=== PATIENT | female | born 1970 | race African-American/Black ===

== ENCOUNTER → 2016-06-03 | Outpatient (CLI) | payer OTHER ==
--- NOTE | 2016-06-03 07:48 | US ---
EXAMINATION TYPE: US abdomen complete DATE OF EXAM: 06/03/2016 7:17 AM COMPARISON: NONE CLINICAL HISTORY: 46-year-old female RUQ Pain R10.11. Patient states abdominal bloating. TECHNIQUE: Multiple sonographic images of the abdomen are obtained. FINDINGS: EXAM MEASUREMENTS: Liver Length: 15.7 cm Gallbladder Wall: 0.2 cm CBD: 0.4 cm Spleen: 9.4 cm Right Kidney: 11.8 x 4.0 x 5.1 cm Left Kidney: 11.2 x 5.2 x 4.5 cm Pancreas: wnl Liver: Normal homogeneous echotexture without focal lesion. Gallbladder: No abnormal gallbladder distention, wall thickening, pericholecystic fluid, or shadowin g calculi. Evidence for sonographic Walden's sign: No CBD: wnl Spleen: wnl Right Kidney: No hydronephrosis Left Kidney: No hydronephrosis Upper IVC: wnl Abd Aorta: wnl IMPRESSION: Unremarkable sonographic examination of the abdomen.
== END | disposition home or self-care (01) ==
LOC: RADUSWWP 07:00
PROVIDERS: ATTEND Internal Medicine
DX: R10.11 Right upper quadrant pain (principal)
CPT/HCPCS: 76700

== ENCOUNTER 2016-10-16 22:00 | Emergency (ER) | payer OTHER ==
[2016-10-16] MEDS ORDERED: HYDROmorphone 1 MG/ML 1 ML SYRINGE IVP STA (22:26)
[2016-10-16] MEDS ORDERED: ACETAMINOPHEN TAB 500 MG TAB PO STA (22:26)
[2016-10-16] MEDS ORDERED: SODIUM CHLORIDE 0.9% 1,000 ML IV STA (22:26)
[2016-10-16] MEDS ORDERED: ONDANSETRON 4 MG/2 ML VIAL IVP STA (22:26)
--- NOTE | 2016-10-16 22:36 | ED ---
General Adult HPI - General Chief complaint: Abdominal Pain Stated complaint: vomiting and rt side pain Time Seen by Provider: 10/16/16 22:12 Source: patient, RN notes reviewed Mode of arrival: ambulatory Limitations: no limitations - History of Present Illness Initial comments: 46-year-old female presents to the emergency department with a chief complaint of right-sided flank pain and right-sided abdominal pain. Patient states started 2 weeks noticed slowly gotten worse. She said states she's developed fever last few days. She's had some nausea vomiting. She went to her doctor today due to the fever he put on antibiotics but she did not take anything yet. Patient was concerned due to the continued fever and pain so she thought that she should be evaluated. Patient denies any surgeries on the abdomen. Patient states that she is not currently having any other symptoms at this time. Patient denies any recent chills, shortness of breath, chest pain, back pain, numbness or tingling, dysuria or hematuria, constipation or diarrhea, headaches or visual changes, or any other current symptoms. - Related Data Home Medications Medication Instructions Recorded Confirmed diphenhydrAMINE [Benadryl] 50 mg PO HS PRN 10/16/16 10/16/16 Allergies Allergy/AdvReac Type Severity Reaction Status Date / Time No Known Allergies Allergy Verified 10/16/16 22:25 Review of Systems ROS Statement: Those systems with pertinent positive or pertinent negative responses have been documented in the HPI. ROS Other: All systems not noted in ROS Statement are negative. Past Medical History Additional Past Medical History / Comment(s): kidney stones History of Any Multi-Drug Resistant Organisms: None Reported Past Surgical History: Uterine Ablation Past Psychological History: No Psychological Hx Reported Smoking Status: Never smoker Past Alcohol Use History: None Reported Past Drug Use History: None Reported General Exam - General Exam Comments Initial Comments: General: The patient is awake and alert, in no distress, and does not appear acutely ill. Eye: Pupils are equal, round and reactive to light, extra-ocular movements are intact; there is normal conjunctiva bilaterally. No signs of icterus. Ears, nose, mouth and throat: There are moist mucous membranes. Neck: The neck is supple, there is no tenderness. Cardiovascular: There is a regular rate and rhythm. No murmur, rub or gallop is appreciated. Respiratory: Lungs are clear to auscultation, respirations are non-labored, breath sounds are equal. No wheezes, stridor, rales, or rhonchi. Gastrointestinal: Soft, non-distended, right-sided tenderness of the abdomen without masses or organomegaly noted. There is no rebound or guarding present. No CVA tenderness. Bowel sounds are unremarkable. Back: There is no tenderness to palpation in the midline. There is no obvious deformity. No rashes noted. Musculoskeletal: Normal ROM, no tenderness, There is no pedal edema. There is no calf tenderness or swelling. Sensation intact. Pulses equal bilaterally 2+. Neurological: CN II-XII intact, There are no obvious motor or sensory deficits. Coordination appears grossly intact. Speech is normal. Skin: Skin is warm and dry and no rashes or lesions are noted. Psychiatric: Cooperative, appropriate mood & affect, normal judgment. Limitations: no limitations Course Vital Signs 10/16/16 22:06 Temperature 100.3 F H Pulse Rate 80 Respiratory 20 Rate Blood Pressure 138/85 O2 Sat by Pulse 100 Oximetry Medical Decision Making - Medical Decision Making 46-year-old female presents emergency Department chief complaint of right-sided abdominal pain. This time patient's results have been reviewed. This and we discussed possible etiologies for the patient's discomfort. We discussed return parameters follow-up and all the patient's questions. Patient stated she understood and she is reviewed and negative.. All her questions have any acute. At this time patient will be discharged home. - Lab Data Result diagrams: 10/16/16 22:45 10/16/16 22:45 Lab Results 10/16/16 10/16/16 10/16/16 Range/Units 22:45 22:45 22:45 WBC 5.6 (3.8-10.6) k/uL RBC 3.95 (3.80-5.40) m/uL Hgb 10.2 L (11.4-16.0) gm/dL Hct 32.3 L (34.0-46.0) % MCV 81.8 (80.0-100.0) fL MCH 25.7 (25.0-35.0) pg MCHC 31.4 (31.0-37.0) g/dL RDW 15.5 (11.5-15.5) % Plt Count 286 (150-450) k/uL Neutrophils % 52 % Lymphocytes % 38 % Monocytes % 5 % Eosinophils % 2 % Basophils % 0 % Neutrophils # 2.9 (1.3-7.7) k/uL Lymphocytes # 2.1 (1.0-4.8) k/uL Monocytes # 0.3 (0-1.0) k/uL Eosinophils # 0.1 (0-0.7) k/uL Basophils # 0.0 (0-0.2) k/uL Hypochromasia Marked Sodium 139 (137-145) mmol/L Potassium 3.9 (3.5-5.1) mmol/L Chloride 104 (98-107) mmol/L Carbon Dioxide 24 (22-30) mmol/L Anion Gap 11 mmol/L BUN 13 (7-17) mg/dL Creatinine 0.80 (0.52-1.04) mg/dL Est GFR (MDRD) Af Amer >60 (>60 ml/min/1.73 sqM) Est GFR (MDRD) Non-Af >60 (>60 ml/min/1.73 sqM) Glucose 132 H (74-99) mg/dL Plasma Lactic Acid Alex 1.1 (0.7-2.0) mmol/L Calcium 9.3 (8.4-10.2) mg/dL Total Bilirubin 0.2 (0.2-1.3) mg/dL AST 13 L (14-36) U/L ALT 28 (9-52) U/L Alkaline Phosphatase 62 (38-126) U/L Total Protein 7.2 (6.3-8.2) g/dL Albumin 4.0 (3.5-5.0) g/dL Amylase 73 (30-110) U/L Lipase 100 (23-300) U/L Urine Color Urine Appearance (Clear) Urine pH (5.0-8.0) Ur Specific [place] (1.001-1.035) Urine Protein (Negative) Urine Glucose (UA) (Negative) Urine Ketones (Negative) Urine Blood (Negative) Urine Nitrite (Negative) Urine Bilirubin (Negative) Urine Urobilinogen (<2.0) mg/dL Ur Leukocyte Esterase (Negative) 10/16/16 Range/Units 22:45 WBC (3.8-10.6) k/uL RBC (3.80-5.40) m/uL Hgb (11.4-16.0) gm/dL Hct (34.0-46.0) % MCV (80.0-100.0) fL MCH (25.0-35.0) pg MCHC (31.0-37.0) g/dL RDW (11.5-15.5) % Plt Count (150-450) k/uL Neutrophils % % Lymphocytes % % Monocytes % % Eosinophils % % Basophils % % Neutrophils # (1.3-7.7) k/uL Lymphocytes # (1.0-4.8) k/uL Monocytes # (0-1.0) k/uL Eosinophils # (0-0.7) k/uL Basophils # (0-0.2) k/uL Hypochromasia Sodium (137-145) mmol/L Potassium (3.5-5.1) mmol/L Chloride (98-107) mmol/L Carbon Dioxide (22-30) mmol/L Anion Gap mmol/L BUN (7-17) mg/dL Creatinine (0.52-1.04) mg/dL Est GFR (MDRD) Af Amer (>60 ml/min/1.73 sqM) Est GFR (MDRD) Non-Af (>60 ml/min/1.73 sqM) Glucose (74-99) mg/dL Plasma Lactic Acid Alex (0.7-2.0) mmol/L Calcium (8.4-10.2) mg/dL Total Bilirubin (0.2-1.3) mg/dL AST (14-36) U/L ALT (9-52) U/L Alkaline Phosphatase (38-126) U/L Total Protein (6.3-8.2) g/dL Albumin (3.5-5.0) g/dL Amylase (30-110) U/L Lipase (23-300) U/L Urine Color Yellow Urine Appearance Clear (Clear) Urine pH 5.0 (5.0-8.0) Ur Specific [place] 1.019 (1.001-1.035) Urine Protein Negative (Negative) Urine Glucose (UA) Negative (Negative) Urine Ketones Negative (Negative) Urine Blood Negative (Negative) Urine Nitrite Negative (Negative) Urine Bilirubin Negative (Negative) Urine Urobilinogen <2.0 (<2.0) mg/dL Ur Leukocyte Esterase Negative (Negative) - Radiology Data Radiology results: report reviewed, image reviewed Disposition Clinical Impression: Right sided abdominal pain, Leiomyoma of uterus Disposition: HOME SELF-CARE Condition: Stable Instructions: Abdominal Pain (ED) Additional Instructions: Please use medication as discussed. Please follow up with family doctor if symptoms have not improved over the next two days. Please return to the emergency room if your symptoms increase or worsen or for any other concerns. Referrals: Shavon Cobos MD [Primary Care Provider] - 1-2 days Time of Disposition: 00:52
[2016-10-16] MEDS ORDERED: KETOROLAC 30 MG/ML 1 ML VIAL IVP STA (22:51)
[2016-10-16 22:59] LABS: Appearance,Urine Clear (Clear); Bilirubin,Urine Negative (Negative); Glucose,Urine (UA) Negative (Negative); Ketones,Urine Negative (Negative); Leukocyte Esterase,Urine Negative (Negative); Nitrite,Urine Negative (Negative); Protein,Urine Negative (Negative); Specific Gravity,Urine 1.019 (1.001-1.035); UA Billing (MACRO vs. MICRO) CHEM; Urobilinogen,Urine <2.0 mg/dL (<2.0)
[2016-10-16 23:03] LABS: Basophils % (A) 0 %; CH 25.2; CHCM 30.9; Eosinophils # (A) 0.1 k/uL (0-0.7); Eosinophils % (A) 2 %; HCT 32.3 % (34.0-46.0); HDW 3.35; HGB 10.2 gm/dL (11.4-16.0); Hypochromasia Marked; Luc # (Auto) 0.16; Luc % (Auto) 3; Lymphocytes # (A) 2.1 k/uL (1.0-4.8); Lymphocytes % (A) 38 %; MCH 25.7 pg (25.0-35.0); MCHC 31.4 g/dL (31.0-37.0); MCV 81.8 fL (80.0-100.0); Mean Platelet Volume 8.1; Monocytes # (A) 0.3 k/uL (0-1.0); Monocytes % (A) 5 %; Neutrophils # (A) 2.9 k/uL (1.3-7.7); Neutrophils % (A) 52 %; RBC 3.95 m/uL (3.80-5.40); RDW 15.5 % (11.5-15.5); WBC 5.6 k/uL (3.8-10.6); WBC (Perox) 5.52
[2016-10-16 23:08] LABS: ALT 28 U/L (9-52); AST 13 U/L (14-36); Alkaline Phosphatase 62 U/L (38-126); Amylase 73 U/L (30-110); Anion Gap 11 mmol/L; Blood Urea Nitrogen 13 mg/dL (7-17); Calcium 9.3 mg/dL (8.4-10.2); Carbon Dioxide 24 mmol/L (22-30); Chloride 104 mmol/L (98-107); Glucose 132 mg/dL (74-99); Non-African American GFR(MDRD) >60 (>60 ml/min/1.73 sqM); Potassium 3.9 mmol/L (3.5-5.1); Sodium 139 mmol/L (137-145); Total Bilirubin 0.2 mg/dL (0.2-1.3); Total Protein 7.2 g/dL (6.3-8.2)
--- NOTE | 2016-10-16 23:55 | CT ---
EXAM: CT Abdomen and Pelvis Without Intravenous Contrast CLINICAL HISTORY: Reason: Pain TECHNIQUE: Axial computed tomography images of the abdomen and pelvis without intravenous contrast. DLP is 949.90 mGy-cm. This CT exam was performed using one or more of the following dose reduction techniques: automated exposure control, adjustment of the mA and/or kV according to patient size, and/or use of iterative reconstruction technique. COMPARISON: No relevant prior studies available. FINDINGS: Lower thorax: No acute findings. ABDOMEN: Liver: Unremarkable. Gallbladder and bile ducts: Unremarkable. No calcified stones. No ductal dilation. Pancreas: Unremarkable. No ductal dilation. Spleen: Unremarkable. No splenomegaly. Adrenals: Unremarkable. No mass. Kidneys and ureters: Unremarkable. No obstructing stones. No hydronephrosis. Stomach and bowel: Unremarkable. No obstruction. No mucosal thickening. Appendix: No findings to suggest acute appendicitis. PELVIS: Bladder: Unremarkable. No stones. Reproductive: Enlarged heterogeneous anteverted uterus. ABDOMEN and PELVIS: Intraperitoneal space: Unremarkable. No free air. No significant fluid collection. Bones/joints: No acute fracture. No dislocation. Soft tissues: Unremarkable. Vasculature: Unremarkable. No abdominal aortic aneurysm. Lymph nodes: Unremarkable. No enlarged lymph nodes. IMPRESSION: Enlarged heterogeneous uterus may be due to multiple leiomyomas or adenomyosis. Correlate clinically.
--- NOTE | 2016-10-17 00:33 | XR ---
EXAM: XR Chest, 2 Views CLINICAL HISTORY: Reason: cough TECHNIQUE: Frontal and lateral views of the chest. COMPARISON: 10/22/15 FINDINGS: Lungs: Unremarkable. No consolidation. Pleural space: Unremarkable. No pneumothorax. Heart: Unremarkable. No cardiomegaly. Mediastinum: Unremarkable. Bones/joints: Unremarkable. IMPRESSION: Normal chest x-rays.
[2016-10-17 01:08] VITALS: BP 119/68; PULSE 69; RESP 18; TEMP 98.1
== END 2016-10-17 01:08 | disposition home or self-care (01) ==
LOC: EC 22:00
DX: D25.9 Leiomyoma of uterus, unspecified (principal); R10.9 Unspecified abdominal pain; R11.2 Nausea with vomiting, unspecified; R50.9 Fever, unspecified; Z87.442 Personal history of urinary calculi
CPT/HCPCS: 99284; 96374; 96375; 96361; 36415; 80053; 82150; 83605; 83690; 85025; 81003; 87040; 87086; 71020; 74176; J2405; J1885

== ENCOUNTER → 2016-10-28 | Outpatient (CLI) | payer OTHER ==
--- NOTE | 2016-10-28 15:28 | NM ---
EXAMINATION TYPE: NM hepatobiliary w EF DATE OF EXAM: 10/28/2016 COMPARISON: NONE HISTORY: Right upper quadrant pain TECHNIQUE: After the intravenous administration of 5.36 mCi Tc 99m Mebrofenin hepatobiliary scintigra phy is performed. Immediate images post injection. FINDINGS: There is satisfactory initial accumulation of tracer by the liver. The gallbladder is visualized wit hin 14 minutes. The small bowel activity is noted within 26 minutes. At one hour 8 ounces of oral e nsure plus is given to mimic CCK and gallbladder ejection fraction is calculated at 77%, in the mikie l range. Therefore there is no scintigraphic evidence of cystic or common bile duct obstruction to s uggest acute cholecystitis or gallbladder dyskinesia. IMPRESSION: 1. No evidence of acute or chronic cholecystitis. 2. Normal ejection fraction of 77% with no evidence of biliary dyskinesia.
== END ==
LOC: RADNMMAIN 13:02
PROVIDERS: ATTEND Internal Medicine
DX: R10.11 Right upper quadrant pain (principal)
CPT/HCPCS: 78226; A9537

== ENCOUNTER → 2017-01-05 | Outpatient (CLI) | payer OTHER ==
--- NOTE | 2017-01-05 10:40 | MM ---
Reason for exam: screening (asymptomatic). Baseline mammogram. Physical Findings: Nurse did not find any significant physical abnormalities on exam. MG Screening Mammo w CAD Bilateral CC and MLO view(s) were taken. The breast tissue is heterogeneously dense. This may lower the sensitivity of mammography. Multiregional calcifications on both sides. The overall distribution and bilaterality favors a benign etiology. Additional magnification views are recommended to further characterize. These results were verbally communicated with the patient and result sheet given to the patient on 01/05/17. ASSESSMENT: Incomplete: need additional imaging evaluation, BI-RAD 0 RECOMMENDATION: Special view mammogram of both breasts.
--- NOTE | 2017-01-05 10:48 | MM ---
Reason for exam: additional evaluation requested from abnormal screening. MG Work Up Mamm w CAD BILAT Bilateral ML and CC with magnification view(s) were taken. MLO with magnification view(s) were taken of the left breast. Multifocal and multicentric bilateral calcifications are demonstrated, many appear round in morphalogy suggesting a benign etiology and can be followed. Additional calcifications layer on lateral view compatible with benign milk of calcium. 6 month followup recommended. ASSESSMENT: Probably benign, BI-RAD 3 RECOMMENDATION: Follow-up diagnostic mammogram of both breasts in 6 months.
== END | disposition home or self-care (01) ==
LOC: RADMAMWWP 08:30
PROVIDERS: ATTEND Internal Medicine
DX: Z12.31 Encounter for screening mammogram for malignant neoplasm of breast (principal); R92.8 Other abnormal and inconclusive findings on diagnostic imaging of breast
CPT/HCPCS: G0202; G0204

== ENCOUNTER 2017-04-23 17:42 | Emergency (ER) | payer OTHER ==
[2017-04-23 18:02] VITALS: TEMP 98.6
[2017-04-23] MEDS ORDERED: METOCLOPRAMIDE 5 MG/ML 2 ML VIAL IVP STA (18:18)
[2017-04-23] MEDS ORDERED: diphenhydrAMINE 50 MG/ML 1 ML VIAL IVP STA (18:18)
[2017-04-23] MEDS ORDERED: SODIUM CHLORIDE 0.9% 1,000 ML IV ONE (18:18)
--- NOTE | 2017-04-23 18:23 | ED ---
Headache HPI - General Chief Complaint: Headache Stated Complaint: chest and abdominal pain, headache x 2 weeks Time Seen by Provider: 04/23/17 18:08 Mode of arrival: ambulatory Limitations: no limitations - History of Present Illness Initial Comments: 46-year-old female patient presents to the emergency department today with complaints of headache 2 weeks. Patient reports that she has had a frontal headache daily for the last 2 weeks. States that she has been taking Excedrin without relief of symptoms. She denies any nasal congestion or drainage. States that she has also been feeling generally fatigued and rundown. States that she is experiencing some mild chest pressure especially when she goes to sleep at night. She states that she did have symptoms similar to this in the past when she had a low hemoglobin level. States that she did have 2 blood transfusions at that time. The blood loss was from heavy menstrual bleeding. States that she has been again experiencing heavy menstrual bleeding. LMP was the beginning of April. States that she does take supplemental iron for this. She states that she does occasionally become dizzy. States that she has lost approximately 20 pounds in the last month. States that she generally works out at the gym however recently has been unable to complete her workup is due to fatigue and shortness of breath. Patient reports that she is also experiencing some generalized abdominal discomfort and nausea. Patient denies any recent rash, fever, chills, diarrhea, constipation, back pain, numbness, tingling, hematuria, dysuria, urinary urgency, urinary frequency, visual changes , or any other complaints. - Related Data Home Medications Medication Instructions Recorded Confirmed Ferrous Sulfate [Feosol] 325 mg PO BID 04/23/17 04/23/17 Folic Acid 1 mg PO DAILY 04/23/17 04/23/17 Multivitamins, Thera [Multivitamin 1 tab PO DAILY 04/23/17 04/23/17 (formulary)] Allergies Allergy/AdvReac Type Severity Reaction Status Date / Time No Known Allergies Allergy Verified 04/23/17 18:19 Review of Systems ROS Statement: Those systems with pertinent positive or pertinent negative responses have been documented in the HPI. ROS Other: All systems not noted in ROS Statement are negative. Past Medical History Past Medical History: No Reported History Additional Past Medical History / Comment(s): kidney stones, low iron History of Any Multi-Drug Resistant Organisms: None Reported Past Surgical History: Uterine Ablation Additional Past Surgical History / Comment(s): kidney stones Past Psychological History: No Psychological Hx Reported Smoking Status: Never smoker Past Alcohol Use History: None Reported Past Drug Use History: None Reported General Exam Limitations: no limitations General appearance: alert, in no apparent distress, other (This is a well- developed, well-nourished adult female patient in no acute distress. Vital signs upon presentation are temperature 98.6F, pulse 74, respirations 18, blood pressure 160/60, pulse ox 100% on room air.) Head exam: Present: atraumatic, normocephalic, normal inspection Eye exam: Present: normal appearance, PERRL, EOMI. Absent: scleral icterus, conjunctival injection, nystagmus, periorbital swelling ENT exam: Present: normal exam, normal oropharynx, mucous membranes moist Neck exam: Present: normal inspection. Absent: tenderness, meningismus, lymphadenopathy Respiratory exam: Present: normal lung sounds bilaterally. Absent: respiratory distress, wheezes, rales, rhonchi, stridor Cardiovascular Exam: Present: regular rate, normal rhythm, normal heart sounds. Absent: systolic murmur, diastolic murmur, rubs, gallop, clicks GI/Abdominal exam: Present: soft, normal bowel sounds. Absent: distended, tenderness, guarding, rebound, rigid Neurological exam: Present: alert, oriented X3, CN II-XII intact Psychiatric exam: Present: normal affect, normal mood Skin exam: Present: warm, dry, intact, normal color. Absent: rash Course Vital Signs 04/23/17 04/23/17 04/23/17 17:59 19:21 21:54 Temperature 98.6 F 98.6 F Pulse Rate 74 68 66 Respiratory 18 18 18 Rate Blood Pressure 116/60 119/75 109/57 O2 Sat by Pulse 100 100 100 Oximetry Medical Decision Making - Medical Decision Making 46-year-old female patient presents to the emergency department today for complaints of headache, fatigue, and chest discomfort. She reported feeling similar when her hemoglobin was low in the past. Patient is also reporting heavier than normal periods last period was at the beginning of April. She is not currently having any vaginal bleeding She is following with a laborer concrete paving for this. Physical examination was relatively unremarkable. Lungs are clear to auscultation with good air movement. Abdomen was soft and nontender. Patient headache did improve with medications received here in the emergency department. Labs reviewed and did reveal a white blood cell count at 3.6, hemoglobin of 7.9, the remainder of her labs including cardiac panel and troponin were negative for any acute abnormalities. I did discuss findings with the patient. Did inform her that her symptoms could be related to a low hemoglobin. I did discuss with her that the level was not at the point of transfusion. She is instructed to follow closely with her laborer concrete paving and primary care physician for monitoring of this. She is instructed to continue taking her iron as directed. Return parameters discussed in detail. She is instructed to return here immediate for any new, worsening, or concerning symptoms. She verbalizes understanding and agrees with this plan. - Lab Data Result diagrams: 04/23/17 18:48 04/23/17 18:48 Lab Results 04/23/17 04/23/17 04/23/17 Range/Units 18:48 18:48 18:48 WBC 3.6 L (3.8-10.6) k/uL RBC 3.94 (3.80-5.40) m/uL Hgb 7.9 L (11.4-16.0) gm/dL Hct 28.1 L (34.0-46.0) % MCV 71.3 L (80.0-100.0) fL MCH 20.1 L (25.0-35.0) pg MCHC 28.2 L (31.0-37.0) g/dL RDW 19.5 H (11.5-15.5) % Plt Count 272 (150-450) k/uL Neutrophils % 49 % Lymphocytes % 41 % Monocytes % 7 % Eosinophils % 1 % Basophils % 0 % Neutrophils # 1.8 (1.3-7.7) k/uL Lymphocytes # 1.5 (1.0-4.8) k/uL Monocytes # 0.2 (0-1.0) k/uL Eosinophils # 0.0 (0-0.7) k/uL Basophils # 0.0 (0-0.2) k/uL Hypochromasia Marked Poikilocytosis Slight Anisocytosis Slight Microcytosis Marked PT (9.0-12.0) sec INR (<1.2) APTT (22.0-30.0) sec Sodium (137-145) mmol/L Potassium (3.5-5.1) mmol/L Chloride (98-107) mmol/L Carbon Dioxide (22-30) mmol/L Anion Gap mmol/L BUN (7-17) mg/dL Creatinine (0.52-1.04) mg/dL Est GFR (MDRD) Af Amer (>60 ml/min/1.73 sqM) Est GFR (MDRD) Non-Af (>60 ml/min/1.73 sqM) Glucose (74-99) mg/dL Calcium (8.4-10.2) mg/dL Magnesium (1.6-2.3) mg/dL Total Bilirubin (0.2-1.3) mg/dL AST (14-36) U/L ALT (9-52) U/L Alkaline Phosphatase (38-126) U/L Total Creatine Kinase 89 (30-135) U/L CK-MB (CK-2) 0.2 (0.0-2.4) ng/mL CK-MB (CK-2) Rel Index 0.2 Troponin I <0.012 (0.000-0.034) ng/mL Total Protein (6.3-8.2) g/dL Albumin (3.5-5.0) g/dL Blood Type A Positive Blood Type Confirm Blood Type Recheck CABO Indicated Antibody Screen NEGATIVE Spec Expiration Date 04/26/2017 - 234704/23/17 04/23/17 04/23/17 Range/Units 18:48 18:48 20:02 WBC (3.8-10.6) k/uL RBC (3.80-5.40) m/uL Hgb (11.4-16.0) gm/dL Hct (34.0-46.0) % MCV (80.0-100.0) fL MCH (25.0-35.0) pg MCHC (31.0-37.0) g/dL RDW (11.5-15.5) % Plt Count (150-450) k/uL Neutrophils % % Lymphocytes % % Monocytes % % Eosinophils % % Basophils % % Neutrophils # (1.3-7.7) k/uL Lymphocytes # (1.0-4.8) k/uL Monocytes # (0-1.0) k/uL Eosinophils # (0-0.7) k/uL Basophils # (0-0.2) k/uL Hypochromasia Poikilocytosis Anisocytosis Microcytosis PT 10.2 (9.0-12.0) sec INR 1.0 (<1.2) APTT 23.2 (22.0-30.0) sec Sodium 141 (137-145) mmol/L Potassium 3.6 (3.5-5.1) mmol/L Chloride 104 (98-107) mmol/L Carbon Dioxide 25 (22-30) mmol/L Anion Gap 12 mmol/L BUN 11 (7-17) mg/dL Creatinine 0.70 (0.52-1.04) mg/dL Est GFR (MDRD) Af Amer >60 (>60 ml/min/1.73 sqM) Est GFR (MDRD) Non-Af >60 (>60 ml/min/1.73 sqM) Glucose 113 H (74-99) mg/dL Calcium 9.6 (8.4-10.2) mg/dL Magnesium 2.0 (1.6-2.3) mg/dL Total Bilirubin 0.2 (0.2-1.3) mg/dL AST 14 (14-36) U/L ALT 15 (9-52) U/L Alkaline Phosphatase 53 (38-126) U/L Total Creatine Kinase (30-135) U/L CK-MB (CK-2) (0.0-2.4) ng/mL CK-MB (CK-2) Rel Index Troponin I (0.000-0.034) ng/mL Total Protein 7.7 (6.3-8.2) g/dL Albumin 4.3 (3.5-5.0) g/dL Blood Type Blood Type Confirm A Positive Blood Type Recheck Antibody Screen Spec Expiration Date - EKG Data EKG Comments: EKG obtained at 1830 shows normal sinus rhythm with a ventricular rate of 78, WA interval 170, QR latter-day 74, QT 380, QTC 433. - Radiology Data Radiology results: report reviewed, image reviewed Two-view x-ray of the chest shows the lungs are clear. The pleural spaces are negative. The cardiac silhouette is not enlarged. The mediastinal pleural silhouettes are unremarkable. The skeletal structures are intact without focal findings. Soft tissues are unremarkable. Impression by Dr. Raymundo Fulton shows no acute process. Disposition Clinical Impression: Anemia, Acute headache Disposition: HOME SELF-CARE Condition: Good Instructions: Acute Headache (ED), Anemia (ED) Additional Instructions: Follow-up with your CLINICAL BIOSTATISTICIAN as soon as possible. Informed them that your hemoglobin was 7.9 on 04/23/2017. Return here immediately for any new, worsening, or concerning symptoms. Referrals: Shavon Cobos MD [Primary Care Provider] - 1-2 days Time of Disposition: 21:45
[2017-04-23 18:25] VITALS: RESP 18
[2017-04-23 18:58] LABS: Anisocytosis Slight; Basophils % (A) 0 %; Eosinophils % (A) 1 %; HCT 28.1 % (34.0-46.0); HGB 7.9 gm/dL (11.4-16.0); Hypochromasia Marked; Lymphocytes # (A) 1.5 k/uL (1.0-4.8); Lymphocytes % (A) 41 %; MCH 20.1 pg (25.0-35.0); MCHC 28.2 g/dL (31.0-37.0); MCV 71.3 fL (80.0-100.0); Mean Platelet Volume 8.6; Microcytosis Marked; Monocytes # (A) 0.2 k/uL (0-1.0); Monocytes % (A) 7 %; Neutrophils # (A) 1.8 k/uL (1.3-7.7); Neutrophils % (A) 49 %; Platelet Count 272 k/uL (150-450); Poikilocytosis Slight; RBC 3.94 m/uL (3.80-5.40); RDW 19.5 % (11.5-15.5); WBC 3.6 k/uL (3.8-10.6)
[2017-04-23 19:08] LABS: Partial Thromboplastin Time 23.2 sec (22.0-30.0); Prothrombin Time 10.2 sec (9.0-12.0)
[2017-04-23 19:09] LABS: ALT 15 U/L (9-52); AST 14 U/L (14-36); Albumin 4.3 g/dL (3.5-5.0); Alkaline Phosphatase 53 U/L (38-126); Anion Gap 12 mmol/L; Blood Urea Nitrogen 11 mg/dL (7-17); Calcium 9.6 mg/dL (8.4-10.2); Carbon Dioxide 25 mmol/L (22-30); Chloride 104 mmol/L (98-107); Glucose 113 mg/dL (74-99); Potassium 3.6 mmol/L (3.5-5.1); Sodium 141 mmol/L (137-145); Total Bilirubin 0.2 mg/dL (0.2-1.3); Total Protein 7.7 g/dL (6.3-8.2)
--- NOTE | 2017-04-23 19:37 | XR ---
EXAMINATION: XR chest 2V DATE AND TIME: 04/23/2017 7:30 PM ORDERING PROVIDER: Echo Henning CLINICAL INDICATION: Pain, fatigue, headache TECHNIQUE: PA and lateral COMPARISON: 10/16/2016 DESCRIPTION: The lungs are clear. The pleural spaces are negative. The cardiac silhouette is not enlarged. The mediastinal and pleural silhouettes are unremarkable. The skeletal structures are intact without focal findings. The soft tissues are unremarkable. IMPRESSION: NO ACUTE PROCESS.
[2017-04-23 20:06] LABS: Creatine Kinase 89 U/L (30-135)
[2017-04-23 20:20] LABS: Creatine Kinase MB 0.2 ng/mL (0.0-2.4); Troponin I <0.012 ng/mL (0.000-0.034)
[2017-04-23 21:55] VITALS: BP 109/57; PULSE 66
== END 2017-04-23 21:55 | disposition home or self-care (01) ==
LOC: EC 17:42
DX: D64.9 Anemia, unspecified (principal); R11.0 Nausea; R10.84 Generalized abdominal pain; Z79.899 Other long term (current) drug therapy
CPT/HCPCS: 36415; 93005; 86900; 86901; 80053; 82550; 82553; 83735; 84484; 85025; 85610; 85730; 86850; 71046; 99284; 96374; 96375; 96361 ×3; J1200; J2765

== ENCOUNTER 2017-06-05 18:05 | Inpatient (IN) | payer OTHER ==
--- NOTE | 2017-06-05 18:26 | ED ---
General Adult HPI - General Chief complaint: Extremity Problem,Nontraumatic Stated complaint: lt leg swelling Time Seen by Provider: 06/05/17 18:12 Source: patient, RN notes reviewed, old records reviewed Mode of arrival: wheelchair Limitations: no limitations - History of Present Illness Initial comments: This patient is a pleasant 47-year-old -Greek female presents emergency Department stay chief complaint of left lower extremity swelling. She reports that she had a D&C surgery approximately 10 days ago. She had this due to prolonged vaginal bleeding. She states that she has been chronically anemic due to the vaginal bleeding and was taking iron supplements. She states that when she was discharged from the hospital her head after a D&C her hemoglobin was 6. Patient's [employer] is Dr. Horton. She states that since being discharged after refusing a transfusion, she's been taking iron supplements. She also reports that she is on multiple control pills to stop vaginal bleeding. She states she's been feeling somewhat better after that he iron supplements. She doesnt feel quiet as fatigued, and denies any significant shortness of breath or major chest pain. Patient does report that when she does walk long periods of time she did become very short of breath and fatigue. Patient states that she was concerned due to the recent surgery because of the lower extremity swelling. She is concerned for possibility of a blood clot. She denies any numbness or tingling down her leg. She denies any traumatic injury to cause the swelling over her leg.Patient denies any recent fever, chills, chest pain, back pain, abdominal pain, nausea vomiting, numbness or tingling, dysuria or hematuria, constipation or diarrhea, headaches or visual changes, or any other current symptoms - Related Data Home Medications Medication Instructions Recorded Confirmed Geritol Liquid 7.5 ml PO HS 06/05/17 06/05/17 Norgestimate-Ethinyl Estradiol 1 tab PO HS 06/05/17 06/05/17 [Mononessa 28 Tablet] Testosterone Cypionate 50 mg IM Q28D 06/05/17 06/05/17 [Depo-Testosterone] Allergies Allergy/AdvReac Type Severity Reaction Status Date / Time No Known Allergies Allergy Verified 06/05/17 18:39 Review of Systems ROS Statement: Those systems with pertinent positive or pertinent negative responses have been documented in the HPI. ROS Other: All systems not noted in ROS Statement are negative. Past Medical History Past Medical History: No Reported History Additional Past Medical History / Comment(s): kidney stones, low iron History of Any Multi-Drug Resistant Organisms: None Reported Past Surgical History: Uterine Ablation Additional Past Surgical History / Comment(s): kidney stones, D&C Past Psychological History: No Psychological Hx Reported Smoking Status: Never smoker Past Alcohol Use History: None Reported Past Drug Use History: None Reported General Exam - General Exam Comments Initial Comments: This is a 47-year-old female. Alert and oriented. No distress. Limitations: no limitations General appearance: alert, in no apparent distress Head exam: Present: atraumatic, normocephalic, normal inspection Eye exam: Present: normal appearance, PERRL, EOMI. Absent: scleral icterus, conjunctival injection, periorbital swelling ENT exam: Present: normal exam, mucous membranes moist Neck exam: Present: normal inspection. Absent: tenderness, meningismus, lymphadenopathy Respiratory exam: Present: normal lung sounds bilaterally. Absent: respiratory distress, wheezes, rales, rhonchi, stridor Cardiovascular Exam: Present: regular rate, normal rhythm, normal heart sounds. Absent: systolic murmur, diastolic murmur, rubs, gallop, clicks GI/Abdominal exam: Present: soft, normal bowel sounds. Absent: distended, tenderness, guarding, rebound, rigid Speculum exam: Present: other (Patient reports spotting) Left Knee exam: Present: normal inspection, full ROM Lower Leg exam: Present: full ROM, tenderness (Of her posterior calf.), swelling (Patient has minor swelling noted to the lateral aspect of the ankle and distal leg. No erythema.). Absent: normal inspection, palpable cord, Homans' sign Ankle exam: Present: tenderness, swelling. Absent: normal inspection, full ROM Neurovascular tendon exam: Present: no vascular compromise Gait: observed and normal Back exam: Present: normal inspection Neurological exam: Present: alert, oriented X3, CN II-XII intact Psychiatric exam: Present: normal affect, normal mood Course Vital Signs 06/05/17 06/05/17 18:06 19:26 Temperature 98 F 98.1 F Pulse Rate 82 82 Respiratory 18 18 Rate Blood Pressure 130/65 136/70 O2 Sat by Pulse 100 100 Oximetry Medical Decision Making - Medical Decision Making This patient is a pleasant 47-year-old -Greek female presents emergency Department stay chief complaint of left lower extremity swelling. She reports that she had a D&C surgery approximately 10 days ago. She had this due to prolonged vaginal bleeding. She states that she has been chronically anemic due to the vaginal bleeding and was taking iron supplements. She states that when she was discharged from the hospital her head after a D&C her hemoglobin was 6. She states that since being discharged after refusing a transfusion, she's been taking iron supplements. She also reports that she is on multiple control pills to stop vaginal bleeding. Patient was found to have a low hemoglobin of 6.5. Discussed that she is showing symptomatically anemia with long periods of walking and becoming short of breath. EKG is performed shows no acute changes. She did have an ultrasound performed on the lower extremity swelling. She does have a positive DVT. Likely contribution due to recent surgery, as well as multiple control pills that she has not established vaginal bleeding. Discussed further concern of her vaginal bleeding and a positive DVT would like to monitor the patient give her a unit of blood. As well as initiate heparin. She has no significant vaginal bleeding at this time. Just mild spotting. Patient will be admitted at this time discussed with Chong. We will consult called [employer]. - Lab Data Result diagrams: 06/05/17 18:30 06/05/17 18:30 Lab Results 06/05/17 06/05/17 06/05/17 Range/Units 18:30 18:30 18:30 WBC 5.9 (3.8-10.6) k/uL RBC 3.15 L (3.80-5.40) m/uL Hgb 6.5 L* (11.4-16.0) gm/dL Hct 22.7 L (34.0-46.0) % MCV 72.1 L (80.0-100.0) fL MCH 20.7 L (25.0-35.0) pg MCHC 28.8 L (31.0-37.0) g/dL RDW 20.2 H (11.5-15.5) % Plt Count 231 (150-450) k/uL Neutrophils % 63 % Lymphocytes % 26 % Monocytes % 6 % Eosinophils % 3 % Basophils % 0 % Neutrophils # 3.7 (1.3-7.7) k/uL Lymphocytes # 1.5 (1.0-4.8) k/uL Monocytes # 0.4 (0-1.0) k/uL Eosinophils # 0.2 (0-0.7) k/uL Basophils # 0.0 (0-0.2) k/uL Hypochromasia Marked Poikilocytosis Moderate Anisocytosis Moderate Microcytosis Marked PT (9.0-12.0) sec INR (<1.2) APTT (22.0-30.0) sec Sodium 141 (137-145) mmol/L Potassium 3.6 (3.5-5.1) mmol/L Chloride 105 (98-107) mmol/L Carbon Dioxide 25 (22-30) mmol/L Anion Gap 11 mmol/L BUN 12 (7-17) mg/dL Creatinine 0.70 (0.52-1.04) mg/dL Est GFR (CKD-EPI)AfAm >90 (>60 ml/min/1.73 sqM) Est GFR (CKD-EPI)NonAf >90 (>60 ml/min/1.73 sqM) Glucose 101 H (74-99) mg/dL Calcium 9.2 (8.4-10.2) mg/dL Blood Type A Positive Blood Type Recheck No Antibody Screen POSITIVE Antibody Identification See Comments Direct Antiglob Test Positive Crossmatch See Detail Spec Expiration Date 06/08/2017 - 232906/05/17 Range/Units 18:30 WBC (3.8-10.6) k/uL RBC (3.80-5.40) m/uL Hgb (11.4-16.0) gm/dL Hct (34.0-46.0) % MCV (80.0-100.0) fL MCH (25.0-35.0) pg MCHC (31.0-37.0) g/dL RDW (11.5-15.5) % Plt Count (150-450) k/uL Neutrophils % % Lymphocytes % % Monocytes % % Eosinophils % % Basophils % % Neutrophils # (1.3-7.7) k/uL Lymphocytes # (1.0-4.8) k/uL Monocytes # (0-1.0) k/uL Eosinophils # (0-0.7) k/uL Basophils # (0-0.2) k/uL Hypochromasia Poikilocytosis Anisocytosis Microcytosis PT 10.1 (9.0-12.0) sec INR 1.0 (<1.2) APTT 20.1 L (22.0-30.0) sec Sodium (137-145) mmol/L Potassium (3.5-5.1) mmol/L Chloride (98-107) mmol/L Carbon Dioxide (22-30) mmol/L Anion Gap mmol/L BUN (7-17) mg/dL Creatinine (0.52-1.04) mg/dL Est GFR (CKD-EPI)AfAm (>60 ml/min/1.73 sqM) Est GFR (CKD-EPI)NonAf (>60 ml/min/1.73 sqM) Glucose (74-99) mg/dL Calcium (8.4-10.2) mg/dL Blood Type Blood Type Recheck Antibody Screen Antibody Identification Direct Antiglob Test Crossmatch Spec Expiration Date 06/05/17 21:30 EKG shows sinus rhythm, ventricular rate of 79 bpm. IA interval 166 most seconds. QRS ration 70 ms. QT QTc is 376/431 ms. No evidence of ST elevation or T-wave inversion. No endometrial ventricular arrhythmias. - Radiology Data Radiology results: report reviewed Ultrasound is positive for DVT in the left lower extremity. The promises the left popliteal vein extending to the anterior proximal calf vein. Disposition Clinical Impression: DVT (deep vein thrombosis) in , Anemia, Status post D&C, History of heavy vaginal bleeding Disposition: ADMITTED IP TO THIS [facility] Condition: Stable Time of Disposition: 20:36
[2017-06-05 18:48] LABS: Anisocytosis Moderate; Basophils % (A) 0 %; Eosinophils # (A) 0.2 k/uL (0-0.7); Eosinophils % (A) 3 %; HCT 22.7 % (34.0-46.0); Hypochromasia Marked; Lymphocytes # (A) 1.5 k/uL (1.0-4.8); Lymphocytes % (A) 26 %; MCH 20.7 pg (25.0-35.0); MCHC 28.8 g/dL (31.0-37.0); MCV 72.1 fL (80.0-100.0); Mean Platelet Volume 8.6; Microcytosis Marked; Monocytes # (A) 0.4 k/uL (0-1.0); Monocytes % (A) 6 %; Neutrophils # (A) 3.7 k/uL (1.3-7.7); Neutrophils % (A) 63 %; Platelet Count 231 k/uL (150-450); Poikilocytosis Moderate; RBC 3.15 m/uL (3.80-5.40); RDW 20.2 % (11.5-15.5); WBC 5.9 k/uL (3.8-10.6)
[2017-06-05 18:52] LABS: Anion Gap 11 mmol/L; Blood Urea Nitrogen 12 mg/dL (7-17); Calcium 9.2 mg/dL (8.4-10.2); Carbon Dioxide 25 mmol/L (22-30); Chloride 105 mmol/L (98-107); Glucose 101 mg/dL (74-99); Potassium 3.6 mmol/L (3.5-5.1); Sodium 141 mmol/L (137-145)
[2017-06-05 18:56] LABS: HGB 6.5 gm/dL (11.4-16.0)
--- NOTE | 2017-06-05 19:08 | US ---
EXAMINATION TYPE: US venous doppler duplex LE LT DATE OF EXAM: 06/05/2017 6:59 PM COMPARISON: NONE CLINICAL HISTORY: Pain. Pain left leg. Edema left ankle. D&C 2 weeks ago SIDE PERFORMED: Left TECHNIQUE: The lower extremity deep venous system is examined utilizing real time linear array sonog catherine with graded compression, doppler sonography and color-flow sonography. VESSELS IMAGED: External Iliac Vein (EIV) Common Femoral Vein Deep Femoral Vein Greater Saphenous Vein * Femoral Vein Popliteal Vein Small Saphenous Vein * Proximal Calf Veins (* superficial vessels) Left Leg: *Positive for DVT. Thrombus left popliteal vein mid extending into proximal calf vein, com pression deferred at this level Grayscale, color doppler, spectral doppler imaging performed of the deep veins of the left lower extr emity. There is normal flow, compressibility, vascular waveforms proximally. Beginning in the mid to distal popliteal vein extending to proximal calf pain there is hyperechoic ma terial expanding the lumen with absent color flow IMPRESSION: Acute DVT in the left lower extremity mid to distal popliteal vein extending into left ca lf vein.
[2017-06-05 19:22] LABS: Prothrombin Time 10.1 sec (9.0-12.0)
[2017-06-05 19:25] LABS: Partial Thromboplastin Time 20.1 sec (22.0-30.0)
[2017-06-05] MEDS ORDERED: ONDANSETRON 4 MG/2 ML VIAL IVP STA (19:28)
[2017-06-05] MEDS ORDERED: HEPARIN SODIUM,PORCINE 5,000 UNIT/ML 1 ML VIAL IV ONE (19:51)
[2017-06-05] MEDS ORDERED: HEPARIN SODIUM,PORCINE 5,000 UNIT/ML 1 ML VIAL IV PRN (19:51)
[2017-06-05] MEDS ORDERED: KETOROLAC 30 MG/ML 1 ML VIAL IVP PRN (20:36)
[2017-06-05] MEDS ORDERED: ONDANSETRON 4 MG/2 ML VIAL IVP PRN (20:36)
[2017-06-05] MEDS ORDERED: NALOXONE 0.4 MG/ML 1 ML VIAL IV PRN (20:36)
[2017-06-05] MEDS ORDERED: IBUPROFEN 400 MG TAB PO PRN (20:36)
[2017-06-05] MEDS ORDERED: MORPHINE ORAL SOLN 10 MG/5 ML CUP PO PRN (20:36)
[2017-06-05] MEDS: HEPARIN SOD,PORK IN 0.45% NACL 25,000 UNIT in 0.45% NACL 1 500ML.BAG IV SCH (20:59)
[2017-06-05] MEDS ORDERED: NORGESTIMATE-ETHINYL ESTRADIOL 1 EACH TABLET PO SCH (21:00)
[2017-06-05] MEDS ORDERED: GERITOL PO SCH (21:00)
[2017-06-05] MEDS: SODIUM CHLORIDE 0.9% 1,000 ML IV SCH (21:04)
[2017-06-05] MEDS: ACETAMINOPHEN TAB 325 MG TAB PO PRN (22:03)
[2017-06-06] MEDS: SODIUM CHLORIDE 0.9% 1,000 ML IV SCH (04:55)
[2017-06-06] MEDS: ACETAMINOPHEN TAB 325 MG TAB PO PRN (07:43)
[2017-06-06] MEDS: PANTOPRAZOLE 40 MG/10 ML VIAL IV SCH (07:44)
[2017-06-06] MEDS: HEPARIN SOD,PORK IN 0.45% NACL 25,000 UNIT in 0.45% NACL 1 500ML.BAG IV SCH (11:18)
--- NOTE | 2017-06-06 13:11 | P.HPIM ---
History of Present Illness 47-year-old female came in within the left lower exudate found to have DVT extending from the left popliteal. Patient was started on IV heparin. Patient' s hemoglobin is 6.5 patient had a recent D&C about 10 days ago at the time patient had a left lower limb pain as well pain continued patient is on oral contraceptive pills for the vaginal bleeding patient although is found to have intramural fibroid. Patient's anemia is secondary to vaginal bleeding patient is complaining of fatigue denied any shortness of breath denied any chest pain. Patient will be started on oral anticoagulation. They're not anticipating any surgical intervention at this point of time although patient will eventually need hysterectomy. OC pills will be discontinued [employer] was consulted. Review of Systems REVIEW OF SYSTEMS: CONSTITUTIONAL: No fever, no malaise, no fatigue. HEENT: No recent visual problems or hearing problems. Denied any sore throat. CARDIOVASCULAR: No chest pain, orthopnea, PND, no palpitations, no syncope. PULMONARY: No shortness of breath, no cough, no hemoptysis. GASTROINTESTINAL: No diarrhea, no nausea, no vomiting, no abdominal pain. Normoactive bowel sounds. NEUROLOGICAL: No headaches, no weakness, no numbness. HEMATOLOGICAL: Denies any bleeding or petechiae. GENITOURINARY: Denies any burning micturition, frequency, or urgency. MUSCULOSKELETAL/RHEUMATOLOGICAL: Denies any joint pain, swelling, or any muscle pain. ENDOCRINE: Denies any polyuria or polydipsia. The rest of the 14-point review of systems is negative. Past Medical History Past Medical History: No Reported History Additional Past Medical History / Comment(s): kidney stones, low iron History of Any Multi-Drug Resistant Organisms: None Reported Past Surgical History: Uterine Ablation Additional Past Surgical History / Comment(s): kidney stones, D&C Past Anesthesia/Blood Transfusion Reactions: No Reported Reaction Past Psychological History: No Psychological Hx Reported Smoking Status: Never smoker Past Alcohol Use History: None Reported Past Drug Use History: None Reported Medications and Allergies Home Medications Medication Instructions Recorded Confirmed Type Geritol Liquid 7.5 ml PO HS 06/05/17 06/05/17 History Norgestimate-Ethinyl Estradiol 1 tab PO HS 06/05/17 06/05/17 History [Mononessa 28 Tablet] Testosterone Cypionate 50 mg IM Q28D 06/05/17 06/05/17 History [Depo-Testosterone] Allergies Allergy/AdvReac Type Severity Reaction Status Date / Time No Known Allergies Allergy Verified 06/05/17 18:39 Physical Exam Vitals: Vital Signs Temp Pulse Pulse Resp BP BP Pulse Ox 06/06/17 07:00 98.5 F 75 24 120/75 98 06/05/17 22:28 20 06/05/17 21:56 97.3 F L 20 113/65 100 06/05/17 21:25 97.7 F 75 15 120/62 100 06/05/17 19:26 98.1 F 82 18 136/70 100 06/05/17 18:06 98 F 82 18 130/65 100 Intake and Output 06/05/17 06/06/17 06/06/17 22:59 06:59 14:59 Intake Total 600 353.314 244.619 Balance 600 353.314 244.619 Intake: Intake, IV Titration 253.314 244.619 Amount Heparin Sod,Pork in 0.45% 253.314 244.619 NaCl 25,000 unit In 0.45 % NaCl 1 500ml.bag @ 18 UNITS/KG/HR 34.78 mls/hr IV .[id number] [facility] Rx#: [id number] Oral 600 100 Other: # Voids 0 1 Weight 102.058 kg PHYSICAL EXAMINATION: GENERAL: The patient is alert and oriented x3, not in any acute distress. Well developed, well nourished. HEENT: Pupils are round and equally reacting to light. EOMI. No scleral icterus. Patient does have conjunctival pallor. Normocephalic, atraumatic. No pharyngeal erythema. No thyromegaly. CARDIOVASCULAR: S1 and S2 present. No murmurs, rubs, or gallops. PULMONARY: Chest is clear to auscultation, no wheezing or crackles. ABDOMEN: Soft, nontender, nondistended, normoactive bowel sounds. No palpable organomegaly. MUSCULOSKELETAL: No joint swelling or deformity. EXTREMITIES: No cyanosis, clubbing, or pedal edema. NEUROLOGICAL: Gross neurological examination did not reveal any focal deficits. SKIN: No rashes. Results CBC & Chem 7: 06/05/17 18:30 06/05/17 18:30 Labs: Abnormal Lab Results - Last 24 Hours (Table) 0406/05/17 06/05/17 Range/Units 18:30 18:30 18:30 RBC 3.15 L (3.80-5.40) m/uL Hgb 6.5 L* (11.4-16.0) gm/dL Hct 22.7 L (34.0-46.0) % MCV 72.1 L (80.0-100.0) fL MCH 20.7 L (25.0-35.0) pg MCHC 28.8 L (31.0-37.0) g/dL RDW 20.2 H (11.5-15.5) % APTT (22.0-30.0) sec Glucose 101 H (74-99) mg/dL Crossmatch See Detail 06/05/17 06/05/17 06/06/17 Range/Units 18:30 21:22 02:45 RBC (3.80-5.40) m/uL Hgb (11.4-16.0) gm/dL Hct (34.0-46.0) % MCV (80.0-100.0) fL MCH (25.0-35.0) pg MCHC (31.0-37.0) g/dL RDW (11.5-15.5) % APTT 20.1 L 65.6 H (22.0-30.0) sec Glucose (74-99) mg/dL Crossmatch See Detail Thrombosis Risk Factor Assmnt - Choose All That Apply Any of the Below Risk Factors Present?: Yes Each Factor Represents 1 point: Age 41-60 years, Obesity (BMI >25), Swollen legs (current) Other Risk Factors: Yes Thrombosis Risk Factor Assessment Total Risk Factor Score: 3 Thrombosis Risk Factor Assessment Level: Moderate Risk Assessment and Plan Plan: -Acute left lower limb DVT secondary to oral contraceptive pills and obesity. Oral contraceptive pills will be discontinued as etiology of her vaginal bleeding is most probably secondary to uterine fibroids and patient will undergo hysterectomy. Patient will need 3 months of anticoagulation. Patient will be started on oral anti-correlation IV heparin will be discontinued. -Severe anemia subacute anemia: Secondary to her recent vaginal bleed presently no more bleeding. Transfuse because of symptomatic anemia. Most probably iron deficiency due to subacute blood loss.
[2017-06-06] MEDS: APIXABAN 5 MG TAB PO SCH ×2 (15:45→20:11)
[2017-06-06] MEDS ORDERED: APIXABAN 5 MG TAB PO SCH (21:00)
[2017-06-07 03:39] LABS: Anisocytosis Slight; Basophils % (A) 0 %; Eosinophils # (A) 0.1 k/uL (0-0.7); Eosinophils % (A) 2 %; HCT 23.4 % (34.0-46.0); Hypochromasia Marked; Lymphocytes # (A) 1.5 k/uL (1.0-4.8); Lymphocytes % (A) 34 %; MCHC 29.4 g/dL (31.0-37.0); MCV 74.8 fL (80.0-100.0); Microcytosis Moderate; Monocytes # (A) 0.2 k/uL (0-1.0); Monocytes % (A) 5 %; Neutrophils # (A) 2.5 k/uL (1.3-7.7); Neutrophils % (A) 57 %; Platelet Count 175 k/uL (150-450); Poikilocytosis Marked; RBC 3.12 m/uL (3.80-5.40); RDW 19.6 % (11.5-15.5); WBC 4.3 k/uL (3.8-10.6)
[2017-06-07 03:42] LABS: HGB 6.9 gm/dL (11.4-16.0)
--- NOTE | 2017-06-07 06:25 | P.OBCN ---
History of Present Illness Consult date: 06/07/17 Reason for consult: menorrhagia Chief complaint: Left leg pain, history of recent D&C History of present illness: This patient is a pleasant 47-year-old female who is admitted through the emergency department with complains of left extremity pain status post D&C by Dr. Alexis approximately 10 days ago. Patient's gynecologic history is such that she states she had a endometrial ablation done approximately 5 years ago by a physician in [place]. She said this worked for a period of time however began having dysfunctional bleeding and menorrhagia. Patient apparently is chronically anemic and underwent a D&C approximately 10 days ago. Patient states that she was on a high-dose oral contraceptive regimen prior to her surgery and after her surgery, taking 2 or 3 control pills a day. Patient states that she bled quite a bit during her D&C and after her D&C and had to continue the oral contraceptive regimen. She apparently also was offered a blood transfusion at that time but declined. Patient began having increased fatigue and left-sided pain or lower extremity and presented suddenly to [facility] emergency department and diagnosed with a left lower extremity DVT. Patient's bleeding has now subsided and she is not having any more significant vaginal bleeding. Review of Systems Constitutional: Reports as per HPI Genitourinary: Reports as per HPI Menstruation: Reports as per HPI Past Medical History Past Medical History: No Reported History Additional Past Medical History / Comment(s): kidney stones, low iron, dysfunctional uterine bleeding History of Any Multi-Drug Resistant Organisms: None Reported Past Surgical History: Uterine Ablation Additional Past Surgical History / Comment(s): kidney stones, D&C Past Anesthesia/Blood Transfusion Reactions: No Reported Reaction Past Psychological History: No Psychological Hx Reported Smoking Status: Never smoker Past Alcohol Use History: None Reported Past Drug Use History: None Reported Medications and Allergies Home Medications Medication Instructions Recorded Confirmed Type Geritol Liquid 7.5 ml PO HS 06/05/17 06/05/17 History Norgestimate-Ethinyl Estradiol 1 tab PO HS 06/05/17 06/05/17 History [Mononessa 28 Tablet] Testosterone Cypionate 50 mg IM Q28D 06/05/17 06/05/17 History [Depo-Testosterone] Allergies Allergy/AdvReac Type Severity Reaction Status Date / Time No Known Allergies Allergy Verified 06/05/17 18:39 Exam - Vital Signs Vital signs: Vital Signs Temp Pulse Pulse Resp BP BP Pulse Ox 06/06/17 23:00 98.2 F 81 18 117/61 98 06/06/17 19:25 98.5 F 79 16 124/75 100 06/06/17 18:45 98.3 F 76 16 132/83 99 06/06/17 17:50 97.5 F L 75 18 133/75 99 06/06/17 17:20 97.6 F 77 18 122/83 99 06/06/17 17:19 97.6 F 76 16 122/83 99 06/06/17 17:10 98 F 80 16 136/78 99 06/06/17 14:42 98.4 F 81 20 122/75 100 06/06/17 07:00 98.5 F 75 24 120/75 98 Intake and Output 06/06/17 06/06/17 06/07/17 14:59 22:59 06:59 Intake Total 944.619 620 Output Total 400 800 Balance 544.619 -180 Intake: Intake, IV Titration 944.619 Amount Heparin Sod,Pork in 0.45% 244.619 NaCl 25,000 unit In 0.45 % NaCl 1 500ml.bag @ 18 UNITS/KG/HR 34.78 mls/hr IV .[id number] [facility] Rx#: [id number] Sodium Chloride 0.9% 1, 700 000 ml @ 120 mls/hr IV . [id number] [facility] Rx#:[id number] Blood Product 620 Rc As-1 Unit 310 [id number] Output: Urine 400 800 Other: Voiding Method Bedside Commode # Voids 2 2 2 Weight 102.058 kg 102.058 kg Results Result Diagrams: 06/07/17 03:18 06/05/17 18:30 Abnormal Lab Results - Last 24 Hours (Table) 06/05/17 06/05/17 06/07/17 Range/Units 18:30 21:22 03:18 RBC 3.12 L (3.80-5.40) m/uL Hgb 6.9 L* (11.4-16.0) gm/dL Hct 23.4 L (34.0-46.0) % MCV 74.8 L (80.0-100.0) fL MCH 22.0 L (25.0-35.0) pg MCHC 29.4 L (31.0-37.0) g/dL RDW 19.6 H (11.5-15.5) % Crossmatch See Detail See Detail Assessment and Plan Assessment: This is a pleasant 47-year-old female with long-standing menorrhagia and dysfunctional uterine bleeding who is status post history of endometrial ablation in the past and also most recently had a D&C [address] Gary dalal for continued bleeding problems. Patient's also been on high dose oral contraceptive regimen. Patient bleeding has subsided, however she's developed a left lower extremity DVT. She also has chronic anemia for which she has refused a blood transfusion in the past. Currently the patient has accepted a blood transfusion and is being treated for her DVT. She is no longer having any significant vaginal bleeding and therefore there is no indication for gynecologic intervention at this time. I would recommend that she completely discontinue her oral contraceptives. She should follow up with Dr. Gary dalal upon discharge for follow-up of her D&C and further gynecologic treatment. If her bleeding continues to be a problem she will most likely need to have definitive surgical treatment by hysterectomy. Again I recommend she discuss this with her primary physician Dr. Vega. (1) Dysfunctional uterine bleeding Current Visit: Yes Status: Chronic Code(s): N93.8 - OTHER SPECIFIED ABNORMAL UTERINE AND VAGINAL BLEEDING SNOMED Code(s): 89518642
[2017-06-07] MEDS: APIXABAN 5 MG TAB PO SCH ×2 (07:47→19:41)
[2017-06-07] MEDS: PANTOPRAZOLE 40 MG/10 ML VIAL IV SCH (07:48)
[2017-06-07] MEDS: ACETAMINOPHEN TAB 325 MG TAB PO PRN ×2 (10:56→19:40)
[2017-06-07] MEDS ORDERED: DOCUSATE 100 MG CAP PO STA (14:56)
[2017-06-07 16:02] VITALS: RESP 16
[2017-06-07 16:10] VITALS: TEMP 99
--- NOTE | 2017-06-07 17:46 | P.DS ---
Providers Date of admission: 06/06/17 12:10 Attending physician: Adrien Johnson Consults: 06/05/17 20:36 Consult Physician Stat Consulting Provider: Norm Moore Consult Reason/Comments: Anemia, Prolonged vaginal bleeding Do you want consulting provider notified?: Yes, Notify in am Primary care physician: Chandrika Vizcarra [facility] Course: 47-year-old pleasant female was admitted the secondary to left lower limb DVT patient will be given eliquis. Patient is on high-dose oral contraceptive pills for her vaginal bleeding. Which is being disoriented at this point of time and the gynecology services evaluated the patient as well and the patient will be given 1 more unit of blood transfusion as her hemoglobin is borderline 6.9 and patient is scheduled to get IV iron transfusions in the [facility] starting tomorrow. Patient patient is comparing of some vaginal spotting andsignificant vaginal bleed PHYSICAL EXAMINATION: GENERAL: The patient is alert and oriented x3, not in any acute distress. Well developed, well nourished. HEENT: Pupils are round and equally reacting to light. EOMI. No scleral icterus. Patient does have conjunctival pallor. Normocephalic, atraumatic. No pharyngeal erythema. No thyromegaly. CARDIOVASCULAR: S1 and S2 present. No murmurs, rubs, or gallops. PULMONARY: Chest is clear to auscultation, no wheezing or crackles. ABDOMEN: Soft, nontender, nondistended, normoactive bowel sounds. No palpable organomegaly. MUSCULOSKELETAL: No joint swelling or deformity. EXTREMITIES: No cyanosis, clubbing, or pedal edema. NEUROLOGICAL: Gross neurological examination did not reveal any focal deficits. SKIN: No rashes. Assessment and Plan Plan: -Acute left lower limb DVT secondary to oral contraceptive pills and obesity. Oral contraceptive pills will be discontinued patient will need to be 90 correlation for 3 months after discontinue additional oral contraceptive pills -Severe anemia subacute anemia: Secondary to her recent vaginal bleed presently no more bleeding. Transfuse because of symptomatic anemia. Most probably iron deficiency due to subacute blo Patient Condition at Discharge: Stable Plan - Discharge Summary Discharge Rx Participant: Yes New Discharge Prescriptions: New Apixaban [Eliquis] 5 mg PO BID #60 tab Discontinued Norgestimate-Ethinyl Estradiol [Mononessa 28 Tablet] 1 tab PO HS No Action Testosterone Cypionate [Depo-Testosterone] 50 mg IM Q28D Geritol Liquid 7.5 ml PO HS Discharge Medication List Geritol Liquid 7.5 ml PO HS 06/05/17 [History] Testosterone Cypionate [Depo-Testosterone] 50 mg IM Q28D 06/05/17 [History] Apixaban [Eliquis] 5 mg PO BID #60 tab 06/07/17 [Rx] Follow up Appointment(s)/Referral(s): Shavon Cobos MD [Primary Care Provider] - 06/15/17 1:10 pm Patient Instructions/Handouts: Deep Venous Thrombosis (DC) Activity/Diet/Wound Care/Special Instructions: Follow up with Primary care physician regarding anticoagulant. Coupon for free month of Eliquis applied to prescription at [facility]. Discharge Disposition: HOME SELF-CARE
[2017-06-07 18:40] VITALS: BP 133/89; PULSE 74
[2017-06-18] MEDS ORDERED: TESTOSTERONE CYPIONATE 200 MG/ML 1ML VIAL IM SCH (09:00)
== END 2017-06-07 19:42 | disposition home or self-care (01) | DRG 301 ==
LOC: EC 18:05 → 4MS4W 19:50 → OBSVTOIN 06-06 12:10
PROVIDERS: ADMIT Internal Medicine; ATTEND Internal Medicine
PROC: 30233N1 Transfusion of Nonautologous Red Blood Cells into Peripheral Vein, Percutaneous Approach (ICD-10-PCS; principal; 2017-06-06)
DX: I82.402 Acute embolism and thrombosis of unspecified deep veins of left lower extremity (principal); D25.9 Leiomyoma of uterus, unspecified; D64.9 Anemia, unspecified; E61.1 Iron deficiency; E66.9 Obesity, unspecified; N92.0 Excessive and frequent menstruation with regular cycle; N93.8 Other specified abnormal uterine and vaginal bleeding; Z87.42 Personal history of other diseases of the female genital tract; Z87.442 Personal history of urinary calculi; Z68.36 Body mass index [BMI] 36.0-36.9, adult
CPT/HCPCS: 36415; 80048; 85025; 85610; 85730; 86850; 86870; 86880; 86885; 86900; 86901; 86902; 86920; 93005; 96365; 96366; 96375; 96376; 99285

== ENCOUNTER → 2017-10-11 | Outpatient (CLI) | payer OTHER ==
[2017-10-11 17:19] LABS: Anisocytosis Slight; Basophils % (A) 1 %; Eosinophils # (A) 0.1 k/uL (0-0.7); Eosinophils % (A) 1 %; HCT 31.7 % (34.0-46.0); HGB 9.8 gm/dL (11.4-16.0); Hypochromasia Marked; Lymphocytes # (A) 1.3 k/uL (1.0-4.8); Lymphocytes % (A) 33 %; MCH 25.3 pg (25.0-35.0); MCHC 30.8 g/dL (31.0-37.0); Mean Platelet Volume 8.6; Microcytosis Slight; Monocytes # (A) 0.3 k/uL (0-1.0); Monocytes % (A) 6 %; Neutrophils # (A) 2.2 k/uL (1.3-7.7); Neutrophils % (A) 57 %; Platelet Count 295 k/uL (150-450); RBC 3.86 m/uL (3.80-5.40); RDW 18.2 % (11.5-15.5); WBC 3.9 k/uL (3.8-10.6)
[2017-10-11 17:24] LABS: INR 1.1 (<1.2); Prothrombin Time 10.4 sec (9.0-12.0)
[2017-10-12 01:43] LABS: Cardiolipin Ab IgG Interp NEGATIVE (NEGATIVE); Cardiolipin Ab IgM Interp NEGATIVE (NEGATIVE); Cardiolipin IgM Antibody 0.7 U/mL
[2017-10-12 11:52] LABS: Anti-Thrombin III Activity 93 % (79-109)
[2017-10-12 12:10] LABS: Protein C (Activity) 104 % (71-138)
[2017-10-13 11:02] LABS: APTT 40 Sec(s) (<43); Dilute Russell Viper Venom 39 Sec(s) (<44)
== END | disposition home or self-care (01) ==
LOC: LABWHC1 16:13
PROVIDERS: ATTEND Obstetrics & Gynecology
DX: D68.59 Other primary thrombophilia (principal); D64.9 Anemia, unspecified
CPT/HCPCS: 36415; 81240; 81241; 81291; 83090; 85025; 85300; 85303; 85306; 85610; 85613; 85730; 86038; 86146; 86147

== ENCOUNTER → 2017-10-14 | Outpatient (CLI) | payer OTHER ==
--- NOTE | 2017-10-14 13:17 | US ---
EXAMINATION TYPE: US venous doppler duplex LE DATE OF EXAM: 10/14/2017 1:09 PM COMPARISON: NONE CLINICAL HISTORY: M79.662,R22.42 PAIN AND SWELLING LE, I82.529 DVT. Previous DVT in left leg. Not on blood thinners at this time. Swelling. SIDE PERFORMED: Bilateral TECHNIQUE: The lower extremity deep venous system is examined utilizing real time linear array sonog catherine with graded compression, doppler sonography and color-flow sonography. VESSELS IMAGED: External Iliac Vein (EIV) Common Femoral Vein Deep Femoral Vein Greater Saphenous Vein * Femoral Vein Popliteal Vein Small Saphenous Vein * Proximal Calf Veins (* superficial vessels) Right Leg: Negative for DVT Left Leg: Negative for DVT Grayscale, color doppler, spectral doppler imaging performed of the deep veins of the lower extremiti es. There is normal flow, compressibility, vascular waveforms. IMPRESSION: No sonographic evidence of deep venous thrombosis within the lower extremities.
== END | disposition home or self-care (01) ==
LOC: RADUSWWP 12:28
PROVIDERS: ATTEND Internal Medicine Hematology & Oncology
DX: M79.662 Pain in left lower leg (principal); R22.42 Localized swelling, mass and lump, left lower limb; Z91.018 Allergy to other foods
CPT/HCPCS: 93970

== ENCOUNTER 2017-10-27 11:53 | Emergency (ER) | payer OTHER ==
[2017-10-27 12:02] VITALS: BP 119/79; PULSE 72; RESP 18; TEMP 98.3
[2017-10-27] MEDS ORDERED: KETOROLAC 30 MG/ML 1 ML VIAL IVP STA (12:35)
[2017-10-27] MEDS ORDERED: METOCLOPRAMIDE 5 MG/ML 2 ML VIAL IVP STA (12:35)
[2017-10-27] MEDS ORDERED: diphenhydrAMINE 50 MG/ML 1 ML VIAL IVP STA (12:35)
[2017-10-27] MEDS ORDERED: SODIUM CHLORIDE 0.9% 1,000 ML IV STA (12:35)
--- NOTE | 2017-10-27 12:37 | ED ---
General Adult HPI - General Chief complaint: Headache Stated complaint: Headache Time Seen by Provider: 10/27/17 12:23 Source: patient, RN notes reviewed Mode of arrival: ambulatory Limitations: no limitations - History of Present Illness Initial comments: Patient 47-year-old female presented to the emergency room today with a chief complaint of a headache. Patient states that she's had headaches in the past with low hemoglobin. Patient states that this headache started 4 days ago. Patient states that when she woke up. Patient describes the headache in the front of her head with some radiation around to the right side.Please use medication as discussed. Please follow-up with family doctor in the next 2 days of symptoms have not improved. Please return to emergency room if the symptoms increase or worsen or for any other concerns. Admits to to nausea and vomiting. Denies any other complaints or symptoms. She states she's been trying [id number] medication with little relief. Patient denies any recent fever, chills, shortness of breath, chest pain, back pain, abdominal pain , numbness or tingling, visual changes, or any other complaints. - Related Data Home Medications Medication Instructions Recorded Confirmed [id number] 1 - 2 tab PO Q4HR PRN 10/27/17 10/27/17 [Excedrin] Ferrous Sulfate [Feosol] 325 mg PO DAILY 10/27/17 10/27/17 Ibuprofen [Motrin Ib] 200 - 400 mg PO Q6H PRN 10/27/17 10/27/17 Allergies Allergy/AdvReac Type Severity Reaction Status Date / Time No Known Allergies Allergy Verified 10/27/17 12:29 Review of Systems ROS Statement: Those systems with pertinent positive or pertinent negative responses have been documented in the HPI. ROS Other: All systems not noted in ROS Statement are negative. Past Medical History Past Medical History: No Reported History Additional Past Medical History / Comment(s): kidney stones, low iron, dysfunctional uterine bleeding History of Any Multi-Drug Resistant Organisms: None Reported Past Surgical History: Uterine Ablation Additional Past Surgical History / Comment(s): kidney stones, D&C Past Anesthesia/Blood Transfusion Reactions: No Reported Reaction Past Psychological History: No Psychological Hx Reported Smoking Status: Former smoker Past Alcohol Use History: None Reported Past Drug Use History: None Reported General Exam - General Exam Comments Initial Comments: General: The patient is awake and alert, in no distress, and does not appear acutely ill. Eye: Pupils are equal, round and reactive to light, extra-ocular movements are intact. No nystagmus. There is normal conjunctiva bilaterally. No signs of icterus. Ears, nose, mouth and throat: There are moist mucous membranes and no oral lesions. Neck: The neck is supple, there is no tenderness or JVD. Cardiovascular: There is a regular rate and rhythm. No murmur, rub or gallop is appreciated. Respiratory: Lungs are clear to auscultation, respirations are non-labored, breath sounds are equal. No wheezes, stridor, rales, or rhonchi. Gastrointestinal: Soft, non-distended, non-tender abdomen without masses or organomegaly noted. There is no rebound or guarding present. No CVA tenderness. Bowel sounds are unremarkable. Musculoskeletal: Normal ROM, no tenderness. Strength 5/5. Sensation intact. Pulses equal bilaterally 2+. Neurological: A&O x 3. CN II-XII intact, There are no obvious motor or sensory deficits. Coordination appears grossly intact. Speech is normal. Skin: Skin is warm and dry and no rashes or lesions are noted. Psychiatric: Cooperative, appropriate mood & affect, normal judgment. Limitations: no limitations Course Vital Signs 10/27/17 11:58 Temperature 98.3 F Pulse Rate 72 Respiratory 18 Rate Blood Pressure 119/79 O2 Sat by Pulse 98 Oximetry Medical Decision Making - Medical Decision Making Patient left AMA stating to nursing staff that things were taking too long to be done here. Patient left prior to blood work and IV. Disposition Clinical Impression: Headache Disposition: Left Against Medical Advice Condition: Undetermined Referrals: Shavon Cobos MD [Primary Care Provider] - 1-2 days Time of Disposition: 12:45
== END 2017-10-27 13:00 | disposition left against medical advice (07) ==
LOC: EC 11:53
DX: R51 Headache (principal); R11.2 Nausea with vomiting, unspecified; D50.9 Iron deficiency anemia, unspecified; Z87.891 Personal history of nicotine dependence; Z53.29 Procedure and treatment not carried out because of patient's decision for other reasons
CPT/HCPCS: 99283

== ENCOUNTER 2017-10-29 18:13 | Emergency (ER) | payer OTHER ==
[2017-10-29] MEDS ORDERED: diphenhydrAMINE 50 MG/ML 1 ML VIAL IVP STA (18:33)
[2017-10-29] MEDS ORDERED: METOCLOPRAMIDE 5 MG/ML 2 ML VIAL IVP STA (18:33)
[2017-10-29] MEDS ORDERED: KETOROLAC 30 MG/ML 1 ML VIAL IVP STA (18:33)
[2017-10-29] MEDS ORDERED: SODIUM CHLORIDE 0.9% 1,000 ML IV STA (18:33)
--- NOTE | 2017-10-29 18:45 | ED ---
General Adult HPI - General Chief complaint: Headache Stated complaint: Headache Time Seen by Provider: 10/29/17 18:25 Source: patient, RN notes reviewed Mode of arrival: ambulatory Limitations: no limitations - History of Present Illness Initial comments: Patient is a 47-year-old female with significant past medical history for anemia , migraines, presenting to the emergency room today with a headache 5 days. Patient was seen here in the emergency room yesterday for this headache but left prior to any treatment. Patient states she did not want to waste time if she had to go to work. States headache is still present currently. Patient states that she is experiencing pain in the front going across the forehead. Patient doesn't some radiation to the right side. She describes it as sharp. Patient doesn't nausea and vomiting. States that she is felt lightheaded at times. Patient denies any recent fever, chills, shortness of breath, chest pain , back pain, abdominal pain, numbness or tingling, dysuria or hematuria, constipation or diarrhea, visual changes, or any other complaints. - Related Data Home Medications Medication Instructions Recorded Confirmed [id number] 1 - 2 tab PO Q4HR PRN 10/27/17 10/27/17 [Excedrin] Ferrous Sulfate [Feosol] 325 mg PO DAILY 10/27/17 10/27/17 Ibuprofen [Motrin Ib] 200 - 400 mg PO Q6H PRN 10/27/17 10/27/17 Allergies Allergy/AdvReac Type Severity Reaction Status Date / Time No Known Allergies Allergy Verified 10/29/17 18:18 Review of Systems ROS Statement: Those systems with pertinent positive or pertinent negative responses have been documented in the HPI. ROS Other: All systems not noted in ROS Statement are negative. Past Medical History Past Medical History: No Reported History Additional Past Medical History / Comment(s): kidney stones, low iron, dysfunctional uterine bleeding History of Any Multi-Drug Resistant Organisms: None Reported Past Surgical History: Uterine Ablation Additional Past Surgical History / Comment(s): kidney stones, D&C Past Anesthesia/Blood Transfusion Reactions: No Reported Reaction Past Psychological History: No Psychological Hx Reported Smoking Status: Former smoker Past Alcohol Use History: None Reported Past Drug Use History: None Reported General Exam - General Exam Comments Initial Comments: General: The patient is awake and alert, in no distress, and does not appear acutely ill. Eye: Pupils are equal, round and reactive to light, extra-ocular movements are intact. No nystagmus. There is normal conjunctiva bilaterally. No signs of icterus. Ears, nose, mouth and throat: There are moist mucous membranes and no oral lesions. Mildly tender over the frontal sinuses. No tenderness over temporal Neck: The neck is supple, there is no tenderness or JVD. Cardiovascular: There is a regular rate and rhythm. No murmur, rub or gallop is appreciated. Respiratory: Lungs are clear to auscultation, respirations are non-labored, breath sounds are equal. No wheezes, stridor, rales, or rhonchi. Musculoskeletal: Normal ROM, no tenderness. Strength 5/5. Sensation intact. Neurological: A&O x 3. CN II-XII intact, There are no obvious motor or sensory deficits. Coordination appears grossly intact. Speech is normal. Skin: Skin is warm and dry and no rashes or lesions are noted. Psychiatric: Cooperative, appropriate mood & affect, normal judgment. Limitations: no limitations Course Vital Signs 10/29/17 18:17 Temperature 98.4 F Pulse Rate 69 Respiratory 20 Rate Blood Pressure 126/78 O2 Sat by Pulse 98 Oximetry Medical Decision Making - Medical Decision Making Patient reexamined at this time shows no signs of distress. Her labs been reviewed does show a hemoglobin 8.7. Patient does admit to a history of anemia. She states that she was recently had a lab drawn it was 9. Patient at this time is feeling much better. Headache improved. Patient feels comfortable being discharged home. Patient is advised follow-up the family doctor returning if symptoms increase worsen. - Lab Data Result diagrams: 10/29/17 19:06 10/29/17 19:06 Lab Results 10/29/17 10/29/17 10/29/17 Range/Units 19:06 19:06 19:06 WBC 3.6 L (3.8-10.6) k/uL RBC 3.41 L (3.80-5.40) m/uL Hgb 8.7 L (11.4-16.0) gm/dL Hct 28.3 L (34.0-46.0) % MCV 82.9 (80.0-100.0) fL MCH 25.6 (25.0-35.0) pg MCHC 30.8 L (31.0-37.0) g/dL RDW 18.1 H (11.5-15.5) % Plt Count 261 (150-450) k/uL Neutrophils % 54 % Lymphocytes % 37 % Monocytes % 5 % Eosinophils % 3 % Basophils % 1 % Neutrophils # 1.9 (1.3-7.7) k/uL Lymphocytes # 1.3 (1.0-4.8) k/uL Monocytes # 0.2 (0-1.0) k/uL Eosinophils # 0.1 (0-0.7) k/uL Basophils # 0.0 (0-0.2) k/uL Hypochromasia Marked Anisocytosis Slight Microcytosis Slight Sodium 141 (137-145) mmol/L Potassium 3.9 (3.5-5.1) mmol/L Chloride 108 H (98-107) mmol/L Carbon Dioxide 25 (22-30) mmol/L Anion Gap 8 mmol/L BUN 13 (7-17) mg/dL Creatinine 0.70 (0.52-1.04) mg/dL Est GFR (CKD-EPI)AfAm >90 (>60 ml/min/1.73 sqM) Est GFR (CKD-EPI)NonAf >90 (>60 ml/min/1.73 sqM) Glucose 145 H (74-99) mg/dL Calcium 8.9 (8.4-10.2) mg/dL Total Bilirubin 0.1 L (0.2-1.3) mg/dL AST 13 L (14-36) U/L ALT 22 (9-52) U/L Alkaline Phosphatase 50 (38-126) U/L Total Protein 6.9 (6.3-8.2) g/dL Albumin 3.6 (3.5-5.0) g/dL Urine Color Urine Appearance (Clear) Urine pH (5.0-8.0) Ur Specific [place] (1.001-1.035) Urine Protein (Negative) Urine Glucose (UA) (Negative) Urine Ketones (Negative) Urine Blood (Negative) Urine Nitrite (Negative) Urine Bilirubin (Negative) Urine Urobilinogen (<2.0) mg/dL Ur Leukocyte Esterase (Negative) Urine RBC (0-5) /hpf Urine WBC (0-5) /hpf Ur Squamous Epith Cells (0-4) /hpf Urine Bacteria (None) /hpf Urine Mucus (None) /hpf Urine HCG, Qual Not Detected (Not Detectd) 10/29/17 Range/Units 19:06 WBC (3.8-10.6) k/uL RBC (3.80-5.40) m/uL Hgb (11.4-16.0) gm/dL Hct (34.0-46.0) % MCV (80.0-100.0) fL MCH (25.0-35.0) pg MCHC (31.0-37.0) g/dL RDW (11.5-15.5) % Plt Count (150-450) k/uL Neutrophils % % Lymphocytes % % Monocytes % % Eosinophils % % Basophils % % Neutrophils # (1.3-7.7) k/uL Lymphocytes # (1.0-4.8) k/uL Monocytes # (0-1.0) k/uL Eosinophils # (0-0.7) k/uL Basophils # (0-0.2) k/uL Hypochromasia Anisocytosis Microcytosis Sodium (137-145) mmol/L Potassium (3.5-5.1) mmol/L Chloride (98-107) mmol/L Carbon Dioxide (22-30) mmol/L Anion Gap mmol/L BUN (7-17) mg/dL Creatinine (0.52-1.04) mg/dL Est GFR (CKD-EPI)AfAm (>60 ml/min/1.73 sqM) Est GFR (CKD-EPI)NonAf (>60 ml/min/1.73 sqM) Glucose (74-99) mg/dL Calcium (8.4-10.2) mg/dL Total Bilirubin (0.2-1.3) mg/dL AST (14-36) U/L ALT (9-52) U/L Alkaline Phosphatase (38-126) U/L Total Protein (6.3-8.2) g/dL Albumin (3.5-5.0) g/dL Urine Color Yellow Urine Appearance Clear (Clear) Urine pH 5.0 (5.0-8.0) Ur Specific [place] 1.020 (1.001-1.035) Urine Protein Negative (Negative) Urine Glucose (UA) Negative (Negative) Urine Ketones Negative (Negative) Urine Blood Large H (Negative) Urine Nitrite Negative (Negative) Urine Bilirubin Negative (Negative) Urine Urobilinogen <2.0 (<2.0) mg/dL Ur Leukocyte Esterase Negative (Negative) Urine RBC 1 (0-5) /hpf Urine WBC 1 (0-5) /hpf Ur Squamous Epith Cells <1 (0-4) /hpf Urine Bacteria Rare H (None) /hpf Urine Mucus Rare H (None) /hpf Urine HCG, Qual (Not Detectd) Disposition Clinical Impression: Migraine, Anemia Disposition: HOME SELF-CARE Condition: Good Instructions: Migraine Headache (ED) Additional Instructions: Please follow-up with family doctor in the next 2 days of symptoms have not improved. Please return to emergency room if the symptoms increase or worsen or for any other concerns. Is patient prescribed a controlled substance at d/c from ED?: No Referrals: Shavon Cobos MD [Primary Care Provider] - 1-2 days Time of Disposition: 19:40
[2017-10-29 19:17] LABS: Appearance,Urine Clear (Clear); Bacteria,Urine Rare /hpf; Bilirubin,Urine Negative (Negative); Blood,Urine Large (Negative); Color,Urine Yellow; Glucose,Urine (UA) Negative (Negative); Ketones,Urine Negative (Negative); Leukocyte Esterase,Urine Negative (Negative); Mucus,Urine Rare /hpf; Nitrite,Urine Negative (Negative); Protein,Urine Negative (Negative); RBC,Urine 1 /hpf (0-5); Squamous Epithelial Cell,Urine <1 /hpf (0-4); Urobilinogen,Urine <2.0 mg/dL (<2.0); WBC,Urine 1 /hpf (0-5)
[2017-10-29 19:28] LABS: Anisocytosis Slight; Basophils % (A) 1 %; Eosinophils # (A) 0.1 k/uL (0-0.7); Eosinophils % (A) 3 %; HCT 28.3 % (34.0-46.0); HGB 8.7 gm/dL (11.4-16.0); Hypochromasia Marked; Lymphocytes # (A) 1.3 k/uL (1.0-4.8); Lymphocytes % (A) 37 %; MCH 25.6 pg (25.0-35.0); MCHC 30.8 g/dL (31.0-37.0); MCV 82.9 fL (80.0-100.0); Microcytosis Slight; Monocytes # (A) 0.2 k/uL (0-1.0); Monocytes % (A) 5 %; Neutrophils # (A) 1.9 k/uL (1.3-7.7); Neutrophils % (A) 54 %; Platelet Count 261 k/uL (150-450); RBC 3.41 m/uL (3.80-5.40); RDW 18.1 % (11.5-15.5); WBC 3.6 k/uL (3.8-10.6)
[2017-10-29 19:30] LABS: ALT 22 U/L (9-52); AST 13 U/L (14-36); Albumin 3.6 g/dL (3.5-5.0); Alkaline Phosphatase 50 U/L (38-126); Anion Gap 8 mmol/L; Blood Urea Nitrogen 13 mg/dL (7-17); Calcium 8.9 mg/dL (8.4-10.2); Carbon Dioxide 25 mmol/L (22-30); Chloride 108 mmol/L (98-107); Glucose 145 mg/dL (74-99); Potassium 3.9 mmol/L (3.5-5.1); Sodium 141 mmol/L (137-145); Total Bilirubin 0.1 mg/dL (0.2-1.3); Total Protein 6.9 g/dL (6.3-8.2)
[2017-10-29 20:13] VITALS: BP 139/74; PULSE 77; RESP 18; TEMP 97
== END 2017-10-29 20:14 | disposition home or self-care (01) ==
LOC: EC 18:13
DX: G43.909 Migraine, unspecified, not intractable, without status migrainosus (principal); D50.9 Iron deficiency anemia, unspecified; Z87.891 Personal history of nicotine dependence; Z79.899 Other long term (current) drug therapy
CPT/HCPCS: 36415; 80053; 85025; 81001; 81025; 99283; 96374; 96375 ×2; 96361; J1200; J2765; J1885

== ENCOUNTER → 2017-11-16 | Outpatient (CLI) | payer OTHER ==
--- NOTE | 2017-11-17 08:50 | MM ---
Reason for exam: additional evaluation requested from prior study. Last mammogram was performed 10 months ago. Physical Findings: Nurse did not find any significant physical abnormalities on exam. MG Diagnostic Mammo w CAD JAIMIE Bilateral CC and MLO view(s) were taken. Prior study comparison: January 05, 2017, bilateral MG work up mamm w CAD BILAT. January 05, 2017, bilateral MG screening mammo w CAD. The breast tissue is heterogeneously dense. This may lower the sensitivity of mammography. Regional and grouped calcifications persist on both sides. Bilateral biopsy is recommended. These results were verbally communicated with the patient and result sheet given to the patient on 11/16/17. ASSESSMENT: Suspicious, BI-RAD 4 RECOMMENDATION: Stereotactic core biopsy of both breasts. Called Dr. Horton with mammographic findings and has scheduled an appointment for the patient for 12/10/17 at 10:[address] Valera. Biopsy scheduled for 12/16/18 at 8:00. PRELIMINARY REPORT CALLED AND FAXED TO DR. VALERA ON 11/17/17.
== END | disposition home or self-care (01) ==
LOC: RADMAMWWP 15:45
PROVIDERS: ATTEND Obstetrics & Gynecology
DX: N64.4 Mastodynia (principal)
CPT/HCPCS: 77066

== ENCOUNTER → 2017-11-25 | Outpatient (CLI) | payer OTHER ==
--- NOTE | 2017-11-25 14:08 | US ---
EXAMINATION TYPE: US abdomen complete DATE OF EXAM: 11/25/2017 COMPARISON: 06/03/2016 CLINICAL HISTORY: 47-year-old female Splenomegaly R16.1. Anemia, Generalized pain TECHNIQUE: Multiple sonographic images of the abdomen are obtained. FINDINGS: EXAM MEASUREMENTS: Liver Length: 15.0 cm Gallbladder Wall: 0.1 cm CBD: 0.5 cm CHD: 0.3 cm Spleen: 9.1 cm Right Kidney: 11.1 x 5.3 x 3.6 cm Left Kidney: 11.2 x 5.2 x 5.1 cm Pancreas: wnl Liver: wnl Gallbladder: wnl Evidence for sonographic Walden's sign: neg CBD: wnl CHD: wnl Spleen: wnl Right Kidney: wnl Left Kidney: wnl Upper IVC: wnl Abd Aorta: No AAA seen IMPRESSION: Unremarkable sonographic examination of the abdomen.
== END | disposition home or self-care (01) ==
LOC: RADUSWWP 08:28
PROVIDERS: ATTEND Internal Medicine Hematology & Oncology
DX: R16.1 Splenomegaly, not elsewhere classified (principal)
CPT/HCPCS: 76700

== ENCOUNTER → 2017-12-06 | Outpatient (CLI) | payer OTHER ==
[2017-12-06 08:42] VITALS: BP 118/85; PULSE 67; TEMP 98; BMI 36.1
--- NOTE | 2017-12-06 09:21 | P.GSHP ---
History of Present Illness H&P Date: 12/06/17 Chief Complaint: bilateral abnormal mammogram Patient is a 47 year old black female who had a routine mammogram about 8 months ago, and she was recommended to have a repeat bilateral mammogram which was done 11-16-17. ON this mammogram she was noted to have regional and grouped calcifications persistent on both sides. Bilateral biopsy was recommended. The patient states that she has noticed some discomfort in her left breast extending from the nipple through the breast. She does not report any specific lumps or masses in her breast. She states that she has recently been recommended to undergo a hysterectomy secondary to fibroids, however this has been delayed until the breast mammographic findings have been resolved. The patient has extremely heavy menstrual cycles and her hemoglobin has been running approximately 8 as per the patient. The patient without any new nipple discharge or changes. The patient denies any trauma or infection in her breast. Family History: 1. maternal grandmother: uterine cancer in her 70's Hormonal history: menarche; 13 : 5, 4 children, 1 placental abruption first at 20, breast fed: no periods: regular, q month BCP: developed DVT in her leg so stopped used then for 2 months, stopped July; took eloquis for 2 months too heavy bleeding hormones: none Past surgical history: 1. Uterine ablation 2. D&C 3. Lithotripsy for kidney stones Past medical history: 1. uterine fibroids Social history: Smoke: Negative Alcohol data Drugs: Negative Allergies: none - Constitutional Constitutional: Denies chills, Denies fever - EENT Comment: wears glasses Eyes: denies blurred vision, denies pain Ears: deny: decreased hearing, tinnitus Ears, nose, mouth and throat: Reports headache, Reports sore throat - Breasts Breasts: bilateral: as per HPI - Cardiovascular Cardiovascular: Denies chest pain, Denies shortness of breath - Respiratory Respiratory: Denies cough, Denies 7 - Gastrointestinal Gastrointestinal: Denies abdominal pain, Denies diarrhea, Denies nausea, Denies vomiting - Genitourinary (Female) Genitourinary: Reports kidney stones - Menstruation Comment: history of fibroids - Musculoskeletal Musculoskeletal: Denies myalgias - Integumentary Integumentary: Denies pruritus, Denies rash - Neurological Neurological: Denies numbness, Denies weakness - Psychiatric Psychiatric: Denies anxiety, Denies depression - Endocrine Endocrine: Reports fatigue, Denies weight change - Hematologic/Lymphatic Comment: recent DVT related to BCP - Allergic/Immunologic Allergic/Immunologic: Reports as per HPI Past Medical History Past Medical History: No Reported History Additional Past Medical History / Comment(s): kidney stones, low iron, dysfunctional uterine bleeding History of Any Multi-Drug Resistant Organisms: None Reported Past Surgical History: Uterine Ablation Additional Past Surgical History / Comment(s): kidney stones, D&C Past Anesthesia/Blood Transfusion Reactions: No Reported Reaction Past Psychological History: No Psychological Hx Reported Smoking Status: Never smoker Past Alcohol Use History: None Reported Past Drug Use History: None Reported Medications and Allergies Home Medications Medication Instructions Recorded Confirmed Type Ferrous Sulfate [Feosol] 325 mg PO DAILY 10/27/17 12/06/17 History Acetaminophen Tab [Tylenol Tab] 1,000 mg PO BID PRN 11/24/17 12/06/17 History Allergies Allergy/AdvReac Type Severity Reaction Status Date / Time No Known Allergies Allergy Verified 11/24/17 10:14 Surgical - Exam Vital Signs Temp Pulse BP Pulse Ox 98 F 67 118/85 100 12/06/17 08:38 12/06/17 08:38 12/06/17 08:38 12/06/17 08:38 - General well developed, well nourished, no distress, moderate distress - Eyes normal ocular movement, no icteric - ENT no hearing loss, no congestion - Neck no masses, trachea midline - Respiratory normal respiratory effort, clear to auscultation - Cardiovascular Rhythm: regular Heart Sounds: normal: S1, S2 - Abdomen Abdomen: soft - Integumentary no rash, no abnormal pigmentation - Neurologic no disoriented, no combative - Musculoskeletal normal gait, normal posture - Psychiatric oriented to time, oriented to person, oriented to place, speech is normal, memory intact Breast examination: Right breast: Multi-positional exam no dominant masses or nodules of concern, fibrocystic changes Right axilla: No adenopathy of concern Left breast: Multi-positional exam fullness upper-outer quadrant area no discrete dominant masses or nodules of concern fibrocystic changes Left axilla: No adenopathy of concern [place] [id number] reviewed Assessment and Plan Assessment: Impression: 1. bilateral radiographic abnormality of the breast 2. Anemia 3. Uterine fibroid awaiting hysterectomy 4. History of DVT Plan: 1. Bilateral breast stereotactic biopsy 2. Medical management of medical problems Risk and benefits of stereotactic biopsy are discussed with the patient. Risks include bleeding infection reaction to the anesthetic or inability to adequately sample the correct area. The patient understands these. Alternatives would be watchful waiting versus open biopsy neither of which are good options. The patient understands and wishes to proceed. This will be scheduled in the near future. Cc: Dr. Horton, Dr. Deal
== END ==
LOC: WWCWWP 08:21
PROVIDERS: ATTEND Surgery
DX: Z53.9 Procedure and treatment not carried out, unspecified reason (principal)

== ENCOUNTER → 2017-12-16 | Day surgery (SDC) | payer OTHER ==
[2017-12-16 07:27] VITALS: RESP 16; TEMP 98.7; BMI 36.1
--- NOTE | 2017-12-16 09:53 | PCN ---
PROCEDURE NOTE The patient is a 47-year-old black female who presents with bilateral mammographic abnormalities. She was seen preprocedure and the patient did not note any changes in her breast and on physical examination of both breasts, no dominant masses or nodules of concern were identified. After review of the mammograms, it was recommended that she undergo bilateral stereotactic core biopsy for heterogeneous calcifications. The risks and benefits as well as alternatives to procedure were discussed with the patient and she wished to proceed. Left breast stereotactic core biopsy. The patient was taken to the mammotome room and laid on the Lor[facility] prone table. The area of the left breast was evaluated and it was decided to approach the lesion from lateral to medial. The lesion was located in the more lateral quadrant of the left breast in the midportion of the breast. The areas was located on the fresh work wrapper layer film and a stereo pair of the area was clearly identified. The breast was prepped using Betadine and 10 mL of 1% lidocaine were used to anesthetize the area of concern. The approach was lateral to medial. A 9-gauge vacuum-assisted core biopsy needle was driven to the correct coordinates and approximately 12 core biopsies were obtained. The area was lavaged and radiograph of the specimen was performed which revealed that the area of concern had been removed was obtained. Prior to doing the biopsy prefire and postfire films were obtained showing that the needle was in the correct location. Following this, a SecurMark top-helmet hat puncher was placed. A stereo pair confirmed that this was in the correct location. No immediate postop complications were noted. The patient tolerated the procedure in stable condition. The patient will follow up with Dr. Delgado in one week. The specimen was sent for pathology. MMODL / IJN: [id number] /
[2017-12-16 10:47] VITALS: BP 116/81; PULSE 73
--- NOTE | 2017-12-16 15:11 | P.OP ---
Date of Procedure: 12/16/17 Preoperative Diagnosis: Left breast mammographic abnormality, microcalcifications of concern located in the upper outer quadrant BIRADS 4 Postoperative Diagnosis: Same Procedure(s) Performed: Left breast stereotactic core biopsy, upper outer quadrant Anesthesia: local Surgeon: Tesha Valera Estimated Blood Loss (ml): 1 Pathology: other (breast tissue) Condition: stable Disposition: same day Indications for Procedure: The patient is a 47-year-old white female who was noted to have regional in group calcifications bilaterally in the breast which are of concern. This is based on a mammogram performed on . After review with radiology was recommended she undergo bilateral stereotactic core biopsy. This is a dictation for the lesion on the left side in the upper outer quadrant of the left breast. The patient was seen and physical examination was performed. Multiple positional exam of both breasts do not reveal any dominant masses or nodules of concern in either breast. No axillary adenopathy of concern was identified. Risk and benefits of the procedure including bleeding and infection possible of the ability to target the correct lesion were discussed with the patient. Alternatives which would include watchful waiting or open biopsy were not felt to be good and the patient opted for a lateral stereotactic core biopsy. Operative Findings: Dense breast tissues, radiograph of the specimen revealed microcalcifications of concern had been sampled Description of Procedure: The patient was taken to the stereotactic core biopsy suite. The patient was positioned on a low rad prone biopsy table. The area of concern in the left breast was identified on a hollow core door frame assembler film. It was felt that the best approach was a lateral to medial approach which was utilized to sample the specimen. The lesion was approached in this fashion. The skin was prepped using Betadine. One percent lidocaine without epinephrine was used to anesthetize the area of concern. Approximately 15 mL were utilized. A 9-gauge vacuum-assisted rotating core biopsy needle was utilized to obtain the specimens. The area was identified on stereo views. The needle was driven to the correct coordinates. Pre-fire films were obtained. On these it was noted that the needle was in the correct location and post fire films were then obtained. The correct location was again confirmed on her post fire films. The 9-gauge vacuum-assisted rotating core biopsy needle was then used to obtain approximately 12 specimens. Radiograph of the specimen revealed the calcifications of concern had been sampled. A secure marked top machine straw hat presser was placed and confirmed to be in the correct location using a stereo pair radiograph. The patient tolerated the procedure in stable conditions with no immediate postprocedure complications. Our target inaccuracy was felt to be excellent. The biopsy marker was felt to be in the correct location. The specimen was sent to pathology. The patient will follow-up with Dr. Danny Bond in 1 week.
--- NOTE | 2017-12-16 18:41 | MM ---
EXAMINATION TYPE: MG stereo VAD BX RT, MG stereo VAD BX addl LT DATE OF EXAM: 12/16/2017 COMPARISON: 11/16/2017 CLINICAL HISTORY: 47-year-old female abnormal mammogram, referred for stereotactic biopsies. TECHNIQUE: Stereotactic guided core biopsy of the bilateral breast. FINDINGS: The procedure of stereotactic guided core biopsy was explained to the patient. Benefits, alternatives, and risks were discussed. An informed consent was then obtained. RIGHT - 12-1:00 calcifications - The shortness pathway for biopsy was chosen. Shortness pathway was a superior approach. I performed the localization, then surgeon, Dr. Danny Bond performed the remainder of the procedure. Some of these calcifications were seen to layer on the stereo pair suggesting benign milk of calcium. A vacuum assisted biopsy gun was used to obtain multiple core samples. A top-hat Securemark was left at the biopsy site. LEFT- 3:00 calcifications - The shortness pathway for biopsy was chosen. Shortness pathway was a lateral approach. I performed the localization, then surgeon, Dr. Danny Bond performed the remainder of the procedure. A vacuum assisted biopsy gun was used to obtain multiple core samples. A top-hat Securemark was left at the biopsy site. The patient tolerated the procedure well without any immediate complication. The patient was kept in the radiology department for short stay after the procedure and then discharged home in stable condition. Targeted calcifications are identified in specimen mammograms. Post biopsy mammogram shows the clips to appear in satisfactory position relative to the targeted area of concern on the preprocedure images. IMPRESSION: SUCCESSFUL, UNCOMPLICATED STEREOTACTIC GUIDED CORE BIOPSY OF BILATERAL MICROCALCIFICATIONS; FULL PATHOLOGY RESULTS TO FOLLOW. Pathology Results: Benign A. BREAST, LEFT, NEEDLE CORE BIOPSY: Proliferative fibrocystic lesion with stromal sclerosis, duct cystic changes and moderate to florid duct hyperplasia with foci of apocrine metaplasia. 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 Focal intraductal mineralizations are noted. B. RIGHT BREAST, NEEDLE CORE BIOPSIES: Proliferative fibrocystic lesion with stromal sclerosis, duct cystic changes and moderate to florid duct hyperplasia with foci of apocrine metaplasia. 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 Foci of stromal scar. Focal intraductal mineralizations are noted. Recommendation Follow up mammogram of both breast in 6 months. Surgical consult of both breasts. (foci of PASH bilaterally) JUAN
--- NOTE | 2017-12-24 10:38 | P.PCN ---
Date of Procedure: 12/16/17 Preoperative Diagnosis: Microcalcifications of concern in the right breast Postoperative Diagnosis: Same Procedure(s) Performed: Right breast stereotactic core biopsy at 12:00 Anesthesia: local Surgeon: Tesha Valera Estimated Blood Loss (ml): 0 Pathology: other (Breast tissue) Condition: stable Disposition: same day Indications for Procedure: Microcalcifications of concern in the right breast at 12:00 Operative Findings: Microcalcifications Description of Procedure: The patient is a 47-year-old black female who was noted to have bilateral mammographic abnormalities. She was recommended to have bilateral stereotactic core biopsies performed. The area of concern in the right breast was noted to be at 12:00. On physical examination the patient did not have any dominant masses or nodules of concern in either breast. The patient was taken to the stereotactic core biopsy suite. The patient was positioned on the [facility] prone biopsy table. The area of concern in the right breast at 12:00 was identified on the animal stunner film. Was felt that the best approach was CC from above to obtain a sample. The lesion was identified on the animal stunner film. Stereo pair was then performed. The skin was prepped using Betadine. One percent lidocaine without epinephrine was used to anesthetize the area of concern. Proximally 10 mL were utilized. A 9-gauge vacuum- assisted rotating core biopsy needle was utilized to obtain the specimen. The area was identified initially on pre-fire and then a post fire films. The needle was driven to the correct coordinates. Approximately 12 specimens were obtained. We The specimen revealed the calcifications of concern had been sampled. A secure marked top Marker was placed and confirmed to be in the correct location. The patient tolerated procedure in stable condition. No immediate postoperative complications were noted. The specimen was sent to pathology. The patient will follow with Dr. Delgado in 1 week.
== END ==
LOC: RADMAMWWP 07:05
PROVIDERS: ATTEND Surgery
DX: N60.12 Diffuse cystic mastopathy of left breast (principal); N60.11 Diffuse cystic mastopathy of right breast; N60.92 Unspecified benign mammary dysplasia of left breast; N60.91 Unspecified benign mammary dysplasia of right breast; N60.82 Other benign mammary dysplasias of left breast; N60.81 Other benign mammary dysplasias of right breast; Z91.040 Latex allergy status
CPT/HCPCS: 88305; 19081; 19082; A4648; J2001

== ENCOUNTER → 2017-12-24 | Outpatient (CLI) | payer OTHER ==
[2017-12-24 10:04] VITALS: BP 134/61; PULSE 88; RESP 18; TEMP 97.1; BMI 36.1
--- NOTE | 2017-12-24 10:12 | P.PN ---
Subjective Progress Note Date: 12/24/17 Principal diagnosis: Results a stereotactic core biopsy bilateral breast The patient is a 47 year old black female status post bilateral stereotactic core biopsy on [id number]. Pathology is benign. That in the left breast reveals proliferative fibrocystic lesion with stromal sclerosis and pseudo-angiomatous stromal hyperplasia calcifications were noted. That in the right breast reveals proliferative fibrocystic lesion with stromal sclerosis duct hyperplasia and pseudo-angiomatous stromal hyperplasia. The patient has calcifications noted as well. The patient has no complaints postoperatively. She is planning to proceed with a hysterectomy and was waiting for results of the breast biopsies. The pathology is not cancer or precancer and there is no contraindication to proceeding with the hysterectomy. The patient has no complaints related to the procedure. Objective - Vital Signs Vital signs: Vital Signs Temp 97.1 F L 12/24/17 09:59 Pulse 88 12/24/17 09:59 Resp 18 12/24/17 09:59 BP 134/61 12/24/17 09:59 Pulse Ox 100 12/24/17 09:59 Intake & Output 12/23/17 12/24/17 12/24/17 18:59 06:59 18:59 Weight 101.605 kg - Exam BMI 36.2 - Constitutional General appearance: Present: obese - EENT Eyes: Present: EOMI ENT: Present: hearing grossly normal - Respiratory Respiratory: bilateral: CTA - Cardiovascular Rhythm: regular Heart sounds: normal: S1, S2 - Gastrointestinal General gastrointestinal: Present: soft - Integumentary Integumentary Comment(s): Examination of both breasts reveals that the areas of 5 core biopsy sites are clean and dry with no evidence of infection no ecchymosis noted - Musculoskeletal Musculoskeletal: Present: gait normal - Psychiatric Psychiatric: Present: A&O x's 3, appropriate affect, intact judgment & insight Assessment and Plan Assessment: Impression: 1. Status post bilateral breast are detected core biopsies pathology benign Plan: 1. Bilateral mammograms in 6 months with follow-up here Cc: Dr. Horton, Dr. Deal
== END | disposition home or self-care (01) ==
LOC: WWCWWP 09:50
PROVIDERS: ATTEND Surgery
DX: Z53.9 Procedure and treatment not carried out, unspecified reason (principal)

== ENCOUNTER 2018-04-17 08:52 | Emergency (ER) | payer OTHER ==
[2018-04-17] MEDS ORDERED: FAMOTIDINE 20 MG/2 ML VIAL IV STA (09:16)
[2018-04-17] MEDS ORDERED: MAG HYDROX/AL HYDROX/SIMETH 30 ML, HYOSCYAMINE ELIXIR 10 ML, CIMETIDINE HCL 300 MG PO STA ×3 (09:16)
[2018-04-17] MEDS ORDERED: ONDANSETRON 4 MG/2 ML VIAL IVP STA (09:16)
[2018-04-17] MEDS ORDERED: SODIUM CHLORIDE 0.9% 1,000 ML IV STA (09:16)
--- NOTE | 2018-04-17 09:40 | ED ---
Abdominal Pain HPI - General Chief Complaint: Abdominal Pain Stated Complaint: abdominal pain Time Seen by Provider: 04/17/18 09:03 Source: patient, RN notes reviewed Mode of arrival: ambulatory Limitations: no limitations - History of Present Illness Initial Comments: 47-year-old female presents emergency Department with chief complaint of abdominal pain 2 weeks. Patient states it's in her mid abdomen nonradiating. Patient states nothing really makes the pain feel better or worse. Patient has had slight constipation but states that she still has been getting stool out. Patient has noticed that she also started vomiting today. Denies any reflux. Denies chest pain or shortness of breath. Patient states that she had a hysterectomy in December by Dr. Horton. Patient had intermittent bleeding but has seen her TRAINING TECHNICIAN in the last 1 week and was told that everything appeared to be normal. Her TRAINING TECHNICIAN felt that this pain was not related to her surgery. Patient reports no fever or chills. - Related Data Previous Rx's Medication Instructions Recorded Omeprazole 40 mg PO DAILY #14 capsule. 04/17/18 Ondansetron Odt [Zofran Odt] 4 mg PO Q8HR PRN #10 tab 04/17/18 Allergies Allergy/AdvReac Type Severity Reaction Status Date / Time latex Allergy Rash/Hives Verified 04/17/18 09:40 Review of Systems ROS Statement: Those systems with pertinent positive or pertinent negative responses have been documented in the HPI. ROS Other: All systems not noted in ROS Statement are negative. Past Medical History Past Medical History: Deep Vein Thrombosis (DVT) Additional Past Medical History / Comment(s): kidney stones, low iron, dysfunctional uterine bleeding History of Any Multi-Drug Resistant Organisms: None Reported Past Surgical History: Uterine Ablation Additional Past Surgical History / Comment(s): lithotripsy, D&C Past Anesthesia/Blood Transfusion Reactions: No Reported Reaction Past Psychological History: No Psychological Hx Reported, Panic Disorder Smoking Status: Never smoker - Past Family History Mother Family Medical History: Diabetes Mellitus General Exam Limitations: no limitations General appearance: alert, in no apparent distress Head exam: Present: atraumatic, normocephalic, normal inspection Respiratory exam: Present: normal lung sounds bilaterally. Absent: respiratory distress, wheezes, rales, rhonchi, stridor Cardiovascular Exam: Present: regular rate, normal rhythm, normal heart sounds. Absent: systolic murmur, diastolic murmur, rubs, gallop, clicks GI/Abdominal exam: Present: soft, tenderness (Mild mid abdominal and epigastric tenderness), normal bowel sounds. Absent: distended, guarding, rebound, rigid Back exam: Absent: CVA tenderness (R), CVA tenderness (L) Skin exam: Present: warm, dry, intact, normal color. Absent: rash Course Vital Signs 04/17/18 08:56 Temperature 97.7 F Pulse Rate 66 Respiratory 16 Rate Blood Pressure 119/83 O2 Sat by Pulse 99 Oximetry Medical Decision Making - Medical Decision Making 47-year-old female presented for abdominal pain. Patient complete workup including labs and CT patient CT shows moderate stool burden and ovarian cyst. Patient about this ovarian cyst. Patient most likely has some underlying gastritis past patient. Patient started on omeprazole, Zofran for her nausea. Patient agrees this plan and will follow-up. - Lab Data Result diagrams: 04/17/18 09:50 04/17/18 09:50 Lab Results 04/17/18 04/17/18 04/17/18 Range/Units 09:41 09:50 09:50 WBC 3.9 (3.8-10.6) k/uL RBC 4.84 (3.80-5.40) m/uL Hgb 11.1 L (11.4-16.0) gm/dL Hct 35.8 (34.0-46.0) % MCV 74.0 L (80.0-100.0) fL MCH 22.9 L (25.0-35.0) pg MCHC 30.9 L (31.0-37.0) g/dL RDW 20.9 H (11.5-15.5) % Plt Count 203 (150-450) k/uL Neutrophils % 52 % Lymphocytes % 35 % Monocytes % 8 % Eosinophils % 2 % Basophils % 1 % Neutrophils # 2.0 (1.3-7.7) k/uL Lymphocytes # 1.4 (1.0-4.8) k/uL Monocytes # 0.3 (0-1.0) k/uL Eosinophils # 0.1 (0-0.7) k/uL Basophils # 0.0 (0-0.2) k/uL Manual Slide Review Performed Large Platelets Present Hypochromasia Slight Poikilocytosis (manual Present Anisocytosis Moderate Microcytosis Marked Sodium 138 (137-145) mmol/L Potassium 4.8 (3.5-5.1) mmol/L Chloride 109 H (98-107) mmol/L Carbon Dioxide 24 (22-30) mmol/L Anion Gap 5 mmol/L BUN 12 (7-17) mg/dL Creatinine 0.72 (0.52-1.04) mg/dL Est GFR (CKD-EPI)AfAm >90 (>60 ml/min/1.73 sqM) Est GFR (CKD-EPI)NonAf >90 (>60 ml/min/1.73 sqM) Glucose 106 H (74-99) mg/dL Calcium 9.4 (8.4-10.2) mg/dL Total Bilirubin 0.7 (0.2-1.3) mg/dL AST 26 (14-36) U/L ALT 20 (9-52) U/L Alkaline Phosphatase 50 (38-126) U/L Total Protein 7.4 (6.3-8.2) g/dL Albumin 3.8 (3.5-5.0) g/dL Amylase 54 (30-110) U/L Lipase 76 (23-300) U/L Urine Color Light Yellow Urine Appearance Clear (Clear) Urine pH 5.0 (5.0-8.0) Ur Specific [place] 1.014 (1.001-1.035) Urine Protein Negative (Negative) Urine Glucose (UA) Negative (Negative) Urine Ketones Negative (Negative) Urine Blood Negative (Negative) Urine Nitrite Negative (Negative) Urine Bilirubin Negative (Negative) Urine Urobilinogen <2.0 (<2.0) mg/dL Ur Leukocyte Esterase Negative (Negative) Disposition Clinical Impression: Abdominal pain, Gastritis Disposition: HOME SELF-CARE Condition: Stable Instructions (If sedation given, give patient instructions): Abdominal Pain (ED ), Gastritis (ED) Additional Instructions: Please return to the Emergency Department if symptoms worsen or any other concerns. Prescriptions: Omeprazole 40 mg PO DAILY #14 capsule. Ondansetron Odt [Zofran Odt] 4 mg PO Q8HR PRN #10 tab PRN Reason: Nausea Is patient prescribed a controlled substance at d/c from ED?: No Referrals: None,Stated [Primary Care Provider] - 1-2 days Marshall Madrid MD [STAFF PHYSICIAN] - 1-2 days Time of Disposition: 11:53
[2018-04-17 09:53] LABS: Appearance,Urine Clear (Clear); Bilirubin,Urine Negative (Negative); Blood,Urine Negative (Negative); Color,Urine Light Yellow; Glucose,Urine (UA) Negative (Negative); Ketones,Urine Negative (Negative); Leukocyte Esterase,Urine Negative (Negative); Nitrite,Urine Negative (Negative); Protein,Urine Negative (Negative); Specific Gravity,Urine 1.014 (1.001-1.035); Urobilinogen,Urine <2.0 mg/dL (<2.0)
[2018-04-17 10:12] LABS: Anisocytosis Moderate; Basophils % (A) 1 %; Eosinophils # (A) 0.1 k/uL (0-0.7); Eosinophils % (A) 2 %; HCT 35.8 % (34.0-46.0); HGB 11.1 gm/dL (11.4-16.0); Hypochromasia Slight; Lymphocytes # (A) 1.4 k/uL (1.0-4.8); Lymphocytes % (A) 35 %; MCH 22.9 pg (25.0-35.0); MCHC 30.9 g/dL (31.0-37.0); Mean Platelet Volume 9.6; Microcytosis Marked; Monocytes # (A) 0.3 k/uL (0-1.0); Monocytes % (A) 8 %; Neutrophils % (A) 52 %; Platelet Count 203 k/uL (150-450); RBC 4.84 m/uL (3.80-5.40); RDW 20.9 % (11.5-15.5); WBC 3.9 k/uL (3.8-10.6)
[2018-04-17 10:16] LABS: Albumin 3.8 g/dL (3.5-5.0); Amylase 54 U/L (30-110); Anion Gap 5 mmol/L; Blood Urea Nitrogen 12 mg/dL (7-17); Calcium 9.4 mg/dL (8.4-10.2); Carbon Dioxide 24 mmol/L (22-30); Chloride 109 mmol/L (98-107); Glucose 106 mg/dL (74-99); Lipase 76 U/L (23-300); Sodium 138 mmol/L (137-145); Total Bilirubin 0.7 mg/dL (0.2-1.3); Total Protein 7.4 g/dL (6.3-8.2)
[2018-04-17 10:23] LABS: Large Platelets Present; Poikilocytosis (M) Present
[2018-04-17 10:26] LABS: Potassium 4.8 mmol/L (3.5-5.1)
[2018-04-17 10:27] LABS: ALT 20 U/L (9-52); AST 26 U/L (14-36); Alkaline Phosphatase 50 U/L (38-126)
--- NOTE | 2018-04-17 11:23 | CT ---
EXAMINATION TYPE: CT abdomen pelvis w con DATE OF EXAM: 04/17/2018 COMPARISON: 10/16/2016 HISTORY: 47-year-old female with abdominal Pain TECHNIQUE: Contiguous axial scanning of the abdomen and pelvis following administration of 100 ml Iso stefani 300 IV contrast. Delayed images through the kidneys and coronal/sagittal reconstructions perform ed. CT DLP: 1247.3 mGycm Automated exposure control for dose reduction was used. FINDINGS: Heart normal size without pericardial effusion. Stable 4 mm right middle lobe pulmonary nodule. Lung bases are otherwise clear without pleural effusion. There no focal liver lesion or biliary ductal dil atation. Portal venous system is patent. Gallbladder, adrenal glands, left kidney, spleen, and pancreas appear within normal limits. Extrarena l pelvis right kidney. Small diverticulum of the second/third portion of the duodenum. Some prominent fluid-filled small bowel loops in the mid and lower abdomen are nonspecific. No mesent jose or retroperitoneal lymphadenopathy. There is mild stool burden. No pericolonic inflammatory change. Normal appendix. Scar along the midline infraumbilical region suggest prior intra-abdominal surgery. Uterus and both ovaries are visualized. Peripherally enhancing cyst measuring 2.1 cm and the left adn exa suggests a dominant follicle or corpus luteum. Phlebolith in the pelvis. Moderate cul-de-sac free fluid. Bladder urine distended. Bones: No osseous destructive process. IMPRESSION: 1. SOME PROMINENT FLUID-FILLED SMALL BOWEL LOOPS IN THE LOWER ABDOMEN ARE NONSPECIFIC BUT MAY REFLECT ENTERITIS. 2. A 2.1 CM DOMINANT FOLLICLE OR FUNCTIONAL CYST IN THE LEFT OVARY. 3. MODERATE CUL-DE-SAC FREE FLUID LIKELY PHYSIOLOGIC. 4. NO ACUTE INFLAMMATORY PROCESS IDENTIFIED IN THE ABDOMEN OR PELVIS TO EXPLAIN THE PATIENT'S SYMPTOM S.
[2018-04-17 12:31] VITALS: BP 125/79; PULSE 64; RESP 18; TEMP 98
== END 2018-04-17 12:22 | disposition home or self-care (01) ==
LOC: EC 08:52
DX: K29.70 Gastritis, unspecified, without bleeding (principal); N83.202 Unspecified ovarian cyst, left side; Z91.040 Latex allergy status; Z86.718 Personal history of other venous thrombosis and embolism; Z90.710 Acquired absence of both cervix and uterus
CPT/HCPCS: 36415; 80053; 82150; 83690; 85025; 81003; 74177; 99284; 96374; 96375; 96361 ×2; J2405; Q9967

== ENCOUNTER 2018-05-02 18:18 | Emergency (ER) | payer OTHER ==
[2018-05-02] MEDS ORDERED: SODIUM CHLORIDE 0.9% 1,000 ML IV STA (19:23)
[2018-05-02 19:36] LABS: Anisocytosis Moderate; Basophils % (A) 0 %; Eosinophils # (A) 0.1 k/uL (0-0.7); Eosinophils % (A) 2 %; HCT 37.4 % (34.0-46.0); HGB 11.1 gm/dL (11.4-16.0); Hypochromasia Marked; Lymphocytes # (A) 1.8 k/uL (1.0-4.8); Lymphocytes % (A) 33 %; MCH 23.5 pg (25.0-35.0); MCHC 29.8 g/dL (31.0-37.0); Mean Platelet Volume 7.3; Microcytosis Moderate; Monocytes # (A) 0.2 k/uL (0-1.0); Monocytes % (A) 5 %; Neutrophils # (A) 3.1 k/uL (1.3-7.7); Neutrophils % (A) 58 %; Platelet Count 280 k/uL (150-450); RBC 4.74 m/uL (3.80-5.40); RDW 21.3 % (11.5-15.5); WBC 5.3 k/uL (3.8-10.6)
[2018-05-02 19:45] LABS: INR 0.9 (<1.2); Partial Thromboplastin Time 23.5 sec (22.0-30.0)
--- NOTE | 2018-05-02 19:45 | ED ---
General Adult HPI - General Chief complaint: Dizziness Stated complaint: Dizzy Time Seen by Provider: 05/02/18 18:48 Source: patient Mode of arrival: ambulatory Limitations: no limitations - History of Present Illness Initial comments: 48-year-old female patient presents to the emergency department today with multiple complaints. Patient states that for the last couple of weeks she has been having intermittent headaches. States that she is unable to resolve them utilizing [id number] Aleve. She states that her headache today was present when she woke from sleep. States it has persisted all day. She denies any blurred or double vision with this. States that she has had some dizziness. States that she is also having upper abdominal pain. States this has been present for the last few weeks also. 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 Patient was seen and evaluated in the emergency department for this pain 2 weeks [address] did have [address] abdomen and pelvis as well as labs which showed no evidence for any acute abnormalities other than an ovarian cyst. Patient states that her pain has persisted. States the pain in her upper abdomen is constant, does radiate through to her back and into her right flank. States that she is also having substernal chest pain is been constant for the last several days as well. She denies any shortness of breath with this. Denies any cough or congestion. Denies any fever or chills. States that she has had nausea and vomiting. States she's been slightly constipated but has been passing stool last bowel movement was today. Patient denies any recent rash, hematuria, dysuria, urinary urgency, urinary frequency, headache, visual changes, or any other complaints. - Related Data Home Medications Medication Instructions Recorded Confirmed Naproxen Sodium [Aleve] 440 mg PO Q8H 05/02/18 05/02/18 Allergies Allergy/AdvReac Type Severity Reaction Status Date / Time latex Allergy Rash/Hives Verified 05/02/18 18:43 JELLO AdvReac Swelling Uncoded 05/02/18 18:57 Review of Systems ROS Statement: Those systems with pertinent positive or pertinent negative responses have been documented in the HPI. ROS Other: All systems not noted in ROS Statement are negative. Past Medical History Past Medical History: Deep Vein Thrombosis (DVT) Additional Past Medical History / Comment(s): kidney stones, low iron, dysfunctional uterine bleeding History of Any Multi-Drug Resistant Organisms: None Reported Past Surgical History: Hysterectomy, Uterine Ablation Additional Past Surgical History / Comment(s): lithotripsy, D&C Past Anesthesia/Blood Transfusion Reactions: No Reported Reaction Past Psychological History: No Psychological Hx Reported, Panic Disorder Smoking Status: Never smoker Past Alcohol Use History: None Reported Past Drug Use History: None Reported - Past Family History Mother Family Medical History: Diabetes Mellitus General Exam Limitations: no limitations General appearance: alert, in no apparent distress, other (Social well-developed , well-nourished adult female patient in no acute distress. Vital signs upon presentation are temperature 98.3F, pulse 62, respirations 18, blood pressure 152/87, pulse ox 100% on room air.) Eye exam: Present: normal appearance, PERRL, EOMI. Absent: scleral icterus, conjunctival injection, nystagmus, periorbital swelling ENT exam: Present: normal exam, normal oropharynx, mucous membranes moist Neck exam: Present: normal inspection. Absent: tenderness, meningismus, lymphadenopathy Respiratory exam: Present: normal lung sounds bilaterally. Absent: respiratory distress, wheezes, rales, rhonchi, stridor Cardiovascular Exam: Present: regular rate, normal rhythm, normal heart sounds. Absent: systolic murmur, diastolic murmur, rubs, gallop, clicks GI/Abdominal exam: Present: soft, normal bowel sounds. Absent: distended, tenderness, guarding, rebound, rigid Neurological exam: Present: alert, oriented X3, CN II-XII intact Expanded Speech: Present: fluid speech Cranial nerves: EOM's Intact: Normal, Nystagmus: Normal Motor strength exam: RUE: 5, LUE: 5, RLE: 5, LLE: 5 Course Vital Signs 05/02/18 05/02/18 05/03/18 18:43 21:59 00:30 Temperature 98.3 F 97.7 F Pulse Rate 62 56 L 63 Respiratory 18 20 16 Rate Blood Pressure 152/87 151/94 133/76 O2 Sat by Pulse 100 100 100 Oximetry EKG Findings - EKG Comments: EKG Findings:: EKG interpreted by me at 1905 shows normal sinus rhythm with a ventricular rate of 62, VT interval 132, QRS duration 68, QT 392, QTc 397. No evidence of ST elevation or depression. Medical Decision Making - Medical Decision Making 48-year-old female patient presents to the emergency department today with multiple complaints including headache, dizziness, abdominal pain, and chest pain. Physical examination did reveal midepigastric right upper quadrant tenderness. Patient is neurologically intact with no focal deficits. Lungs are clear to auscultation with good air movement. Labs reviewed and are relatively unremarkable. Did obtain ultrasound of the right upper quadrant abdomen which did show a gallbladder in its contracted state with a thickened wall. There is positive Walden sign but no convincing evidence for acute cholecystitis. CT of the brain was performed and showed no acute intracranial abnormalities. Patient will be discharged home at this time to follow-up with her primary care physician, she is instructed to discuss HIDA scan, repeat ultrasound, and referral to neurology. Return parameters were discussed in detail. She verbalizes understanding and agrees with this plan. - Lab Data Result diagrams: 05/02/18 19:15 05/02/18 19:15 Lab Results 05/02/18 05/02/18 05/02/18 Range/Units 19:15 19:15 19:15 WBC 5.3 (3.8-10.6) k/uL RBC 4.74 (3.80-5.40) m/uL Hgb 11.1 L (11.4-16.0) gm/dL Hct 37.4 (34.0-46.0) % MCV 79.0 L D (80.0-100.0) fL MCH 23.5 L (25.0-35.0) pg MCHC 29.8 L (31.0-37.0) g/dL RDW 21.3 H (11.5-15.5) % Plt Count 280 (150-450) k/uL Neutrophils % 58 % Lymphocytes % 33 % Monocytes % 5 % Eosinophils % 2 % Basophils % 0 % Neutrophils # 3.1 (1.3-7.7) k/uL Lymphocytes # 1.8 (1.0-4.8) k/uL Monocytes # 0.2 (0-1.0) k/uL Eosinophils # 0.1 (0-0.7) k/uL Basophils # 0.0 (0-0.2) k/uL Hypochromasia Marked Anisocytosis Moderate Microcytosis Moderate PT 10.0 (9.0-12.0) sec INR 0.9 (<1.2) APTT 23.5 (22.0-30.0) sec Sodium 139 (137-145) mmol/L Potassium 4.0 (3.5-5.1) mmol/L Chloride 106 (98-107) mmol/L Carbon Dioxide 25 (22-30) mmol/L Anion Gap 8 mmol/L BUN 17 (7-17) mg/dL Creatinine 0.70 (0.52-1.04) mg/dL Est GFR (CKD-EPI)AfAm >90 (>60 ml/min/1.73 sqM) Est GFR (CKD-EPI)NonAf >90 (>60 ml/min/1.73 sqM) Glucose 101 H (74-99) mg/dL Calcium 9.5 (8.4-10.2) mg/dL Total Bilirubin 0.4 (0.2-1.3) mg/dL AST 17 (14-36) U/L ALT 21 (9-52) U/L Alkaline Phosphatase 62 (38-126) U/L Troponin I (0.000-0.034) ng/mL Total Protein 7.4 (6.3-8.2) g/dL Albumin 3.9 (3.5-5.0) g/dL Amylase 74 (30-110) U/L Lipase 98 (23-300) U/L Urine Color Urine Appearance (Clear) Urine pH (5.0-8.0) Ur Specific [place] (1.001-1.035) Urine Protein (Negative) Urine Glucose (UA) (Negative) Urine Ketones (Negative) Urine Blood (Negative) Urine Nitrite (Negative) Urine Bilirubin (Negative) Urine Urobilinogen (<2.0) mg/dL Ur Leukocyte Esterase (Negative) Urine RBC (0-5) /hpf Urine WBC (0-5) /hpf Ur Squamous Epith Cells (0-4) /hpf Urine Mucus (None) /hpf 05/02/18 05/02/18 Range/Units 19:15 19:40 WBC (3.8-10.6) k/uL RBC (3.80-5.40) m/uL Hgb (11.4-16.0) gm/dL Hct (34.0-46.0) % MCV (80.0-100.0) fL MCH (25.0-35.0) pg MCHC (31.0-37.0) g/dL RDW (11.5-15.5) % Plt Count (150-450) k/uL Neutrophils % % Lymphocytes % % Monocytes % % Eosinophils % % Basophils % % Neutrophils # (1.3-7.7) k/uL Lymphocytes # (1.0-4.8) k/uL Monocytes # (0-1.0) k/uL Eosinophils # (0-0.7) k/uL Basophils # (0-0.2) k/uL Hypochromasia Anisocytosis Microcytosis PT (9.0-12.0) sec INR (<1.2) APTT (22.0-30.0) sec Sodium (137-145) mmol/L Potassium (3.5-5.1) mmol/L Chloride (98-107) mmol/L Carbon Dioxide (22-30) mmol/L Anion Gap mmol/L BUN (7-17) mg/dL Creatinine (0.52-1.04) mg/dL Est GFR (CKD-EPI)AfAm (>60 ml/min/1.73 sqM) Est GFR (CKD-EPI)NonAf (>60 ml/min/1.73 sqM) Glucose (74-99) mg/dL Calcium (8.4-10.2) mg/dL Total Bilirubin (0.2-1.3) mg/dL AST (14-36) U/L ALT (9-52) U/L Alkaline Phosphatase (38-126) U/L Troponin I <0.012 (0.000-0.034) ng/mL Total Protein (6.3-8.2) g/dL Albumin (3.5-5.0) g/dL Amylase (30-110) U/L Lipase (23-300) U/L Urine Color Light Yellow Urine Appearance Clear (Clear) Urine pH 6.5 (5.0-8.0) Ur Specific [place] 1.012 (1.001-1.035) Urine Protein Negative (Negative) Urine Glucose (UA) Negative (Negative) Urine Ketones Negative (Negative) Urine Blood Negative (Negative) Urine Nitrite Negative (Negative) Urine Bilirubin Negative (Negative) Urine Urobilinogen <2.0 (<2.0) mg/dL Ur Leukocyte Esterase Trace H (Negative) Urine RBC <1 (0-5) /hpf Urine WBC 2 (0-5) /hpf Ur Squamous Epith Cells 4 (0-4) /hpf Urine Mucus Rare H (None) /hpf - Radiology Data Radiology results: report reviewed, image reviewed Two-view x-ray of the chest is obtained. Report is reviewed in its entirety. Impression by Dr. Cardenas shows no acute process. No significant change from prior. Ultrasound of the right upper quadrant abdomen was obtained. Report was reviewed in its entirety. Impression by Dr. Cardenas shows no shadowing mobile gallstones or convincing ultrasound evidence for acute cholecystitis. Persistent mild wall thickening gallbladder presumed product of contracted state. Advised follow-up nonemergent ultrasound proper protocol to reassess. CT head without contrast was obtained. Report was reviewed in its entirety. Impression by Dr. Koehler shows no evidence of acute intracranial abnormality. Disposition Clinical Impression: Acute headache, Abdominal pain, Dizziness Disposition: HOME SELF-CARE Condition: Good Instructions (If sedation given, give patient instructions): Acute Headache (ED ), Abdominal Pain (ED), Dizziness (ED) Additional Instructions: Follow-up with your primary care physician as discussed referral to neurology for further evaluation of her headaches. Also discuss HIDA scan or repeat ultrasound to further evaluate your gallbladder. Return to the emergency department immediately for any new, worsening, or concerning symptoms. Is patient prescribed a controlled substance at d/c from ED?: No Referrals: Shavon Cobos MD [Primary Care Provider] - 1-2 days Time of Disposition: 00:36
[2018-05-02 19:50] LABS: ALT 21 U/L (9-52); AST 17 U/L (14-36); Albumin 3.9 g/dL (3.5-5.0); Alkaline Phosphatase 62 U/L (38-126); Amylase 74 U/L (30-110); Anion Gap 8 mmol/L; Blood Urea Nitrogen 17 mg/dL (7-17); Calcium 9.5 mg/dL (8.4-10.2); Carbon Dioxide 25 mmol/L (22-30); Chloride 106 mmol/L (98-107); Glucose 101 mg/dL (74-99); Lipase 98 U/L (23-300); Sodium 139 mmol/L (137-145); Total Bilirubin 0.4 mg/dL (0.2-1.3); Total Protein 7.4 g/dL (6.3-8.2)
[2018-05-02 19:54] LABS: Appearance,Urine Clear (Clear); Bilirubin,Urine Negative (Negative); Blood,Urine Negative (Negative); Color,Urine Light Yellow; Glucose,Urine (UA) Negative (Negative); Ketones,Urine Negative (Negative); Leukocyte Esterase,Urine Trace (Negative); Mucus,Urine Rare /hpf; Nitrite,Urine Negative (Negative); PH, Urine 6.5 (5.0-8.0); Protein,Urine Negative (Negative); RBC,Urine <1 /hpf (0-5); Specific Gravity,Urine 1.012 (1.001-1.035); Squamous Epithelial Cell,Urine 4 /hpf (0-4); Urobilinogen,Urine <2.0 mg/dL (<2.0); WBC,Urine 2 /hpf (0-5)
--- NOTE | 2018-05-02 20:40 | XR ---
EXAMINATION TYPE: XR chest 2V DATE OF EXAM: 05/02/2018 COMPARISON: Chest x-ray April 23, 2017. HISTORY: Chest and abdominal pain with shortness of breath. TECHNIQUE: Frontal and lateral views of the chest are obtained. FINDINGS: There is no focal air space opacity, pleural effusion, or pneumothorax seen. The cardiac silhouette size is stable and upper limits of normal. The osseous structures are intact. IMPRESSION: No acute process. No significant change from prior.
--- NOTE | 2018-05-02 21:30 | US ---
EXAMINATION TYPE: US abdomen limited DATE OF EXAM: 05/02/2018 COMPARISON: CT abdomen and pelvis April 17, 2018 CLINICAL HISTORY: Pain. Pt states right side ABD pain EXAM MEASUREMENTS: Liver Length: 16.1 cm Gallbladder Wall: 0.4 cm CBD: 0.4 cm Right Kidney: 12.5 x 4.5 x 5.0 cm Pancreas: wnl, tail obscured by overlying bowel gas Liver: wnl Gallbladder: Contracted with thickened wall, pt states she is NPO Evidence for sonographic Walden's sign: Yes CBD: wnl Right Kidney: wnl Visualized pancreas appears within normal limits. IVC is seen in the hepatic dome. Visualized liver s hows no suspicious mass or ductal dilatation. Gallbladder is poorly distended with mild wall thickeni ng but no shadowing mobile gallstones. No pericholecystic fluid is present. IMPRESSION: No shadowing mobile gallstones or convincing ultrasound evidence for acute cholecystitis. Persistent mild wall thickening gallbladder presumed product of contracted state. Advise follow-up n onemergent ultrasound with proper protocol to reassess.
[2018-05-02] MEDS ORDERED: ACETAMINOPHEN TAB 500 MG TAB PO STA (21:34)
--- NOTE | 2018-05-03 00:17 | CT ---
EXAM: CT Head Without Intravenous Contrast CLINICAL HISTORY: Reason: Pain TECHNIQUE: Axial computed tomography images of the head/brain without intravenous contrast. CTDI is 49.3 mGy and DLP is 1094.4 mGy-cm. This CT exam was performed using one or more of the following dose reduction techniques: automated exposure control, adjustment of the mA and/or kV according to patient size, and/or use of iterative reconstruction technique. COMPARISON: None available FINDINGS: Brain: No evidence of acute transcortical cerebral infarction or intracranial hemorrhage. No abnormal mass effect or midline shift. No abnormal extra-axial collections. Ventricles: Ventricles are unremarkable. Bones/joints: No evidence of skull fracture. Several small dural- based calcifications bilaterally. Sinuses: Imaged paranasal sinuses are clear. Mastoid air cells: Mastoid sinuses are clear. IMPRESSION: No evidence of acute intracranial abnormality.
[2018-05-03 00:32] VITALS: BP 133/76; PULSE 63; RESP 16; TEMP 97.7
== END 2018-05-03 00:40 | disposition home or self-care (01) ==
LOC: EC 18:18
DX: R42 Dizziness and giddiness (principal); R51 Headache; R10.10 Upper abdominal pain, unspecified; K82.8 Other specified diseases of gallbladder; M54.9 Dorsalgia, unspecified; R07.89 Other chest pain; K59.00 Constipation, unspecified; Z91.018 Allergy to other foods; Z91.040 Latex allergy status; Z79.1 Long term (current) use of non-steroidal anti-inflammatories (NSAID); Z90.710 Acquired absence of both cervix and uterus; Z87.442 Personal history of urinary calculi; Z98.890 Other specified postprocedural states
CPT/HCPCS: 36415; 70450; 71046; 76705; 80053; 81001; 82150; 83690; 84484; 85025; 85610; 85730; 93005; 96360; 96361; 99284

== ENCOUNTER → 2018-10-26 | Outpatient (CLI) | payer OTHER ==
--- NOTE | 2018-10-26 09:55 | MM ---
Reason for exam: follow-up at short interval from prior study. Last mammogram was performed 11 months ago. History: Benign MG stereo VAD BX addl LT of the left breast, December 16, 2017. Benign MG stereo VAD BX RT of the right breast, December 16, 2017. Physical Findings: Nurse did not find any significant physical abnormalities on exam. MG Diagnostic Mammo w CAD JAIMIE Bilateral CC and MLO view(s) were taken. LM view(s) were taken of the right breast. Prior study comparison: November 16, 2017, bilateral MG diagnostic mammo w CAD JAIMIE. January 05, 2017, bilateral MG work up mamm w CAD BILAT. The breast tissue is heterogeneously dense. This may lower the sensitivity of mammography. Finding #1: There is a 15 mm equal density (isodense), oval mass located 6 cm from the nipple in the 1 o'clock posterior position of the left breast. Finding #2: There is an indeterminate coarse heterogeneous, grouped/clustered calcifications in the upper quadrant, middle position of the right breast. A cluster is not persistent on magnification views. Previous mammotome biopsy in the right and left breast. New finding since November 16, 2017 and January 05, 2017. These results were verbally communicated with the patient and result sheet given to the patient on 10/26/18. ASSESSMENT: Incomplete: need additional imaging evaluation, BI-RAD 0 RECOMMENDATION: Ultrasound of the left breast.
--- NOTE | 2018-10-26 09:57 | USB ---
Reason for exam: additional evaluation requested from abnormal screening. History: Benign MG stereo VAD BX addl LT of the left breast, December 16, 2017. Benign MG stereo VAD BX RT of the right breast, December 16, 2017. US Breast Limited LT Left limited breast ultrasound including focal area of concern, retroareolar and axilla demonstrates a 1.1 x 0.7 x 1.5cm oval, cystic lesion at 1 o'clock. These results were verbally communicated with the patient and result sheet given to the patient on 10/26/18. ASSESSMENT: Benign, BI-RAD 2 RECOMMENDATION: Routine screening mammogram of both breasts in 1 year.
== END | disposition home or self-care (01) ==
LOC: RADMAMWWP 07:06
PROVIDERS: ATTEND Surgery
DX: R92.8 Other abnormal and inconclusive findings on diagnostic imaging of breast (principal)
CPT/HCPCS: 77066

== ENCOUNTER → 2018-11-29 | Outpatient (CLI) | payer OTHER ==
[2018-11-29 09:40] LABS: Basophils % (A) 0 %; Eosinophils # (A) 0.1 k/uL (0-0.7); Eosinophils % (A) 2 %; HCT 38.3 % (34.0-46.0); HGB 13.1 gm/dL (11.4-16.0); Lymphocytes # (A) 1.3 k/uL (1.0-4.8); Lymphocytes % (A) 33 %; MCH 29.6 pg (25.0-35.0); MCHC 34.1 g/dL (31.0-37.0); MCV 86.7 fL (80.0-100.0); Mean Platelet Volume 7.1; Monocytes # (A) 0.2 k/uL (0-1.0); Monocytes % (A) 5 %; Neutrophils # (A) 2.3 k/uL (1.3-7.7); Neutrophils % (A) 58 %; Platelet Count 246 k/uL (150-450); RBC 4.42 m/uL (3.80-5.40)
[2018-11-29 10:20] LABS: Appearance,Urine Clear (Clear); Bilirubin,Urine Negative (Negative); Blood,Urine Negative (Negative); Color,Urine Light Yellow; Glucose,Urine (UA) Negative (Negative); Ketones,Urine Negative (Negative); Leukocyte Esterase,Urine Negative (Negative); Nitrite,Urine Negative (Negative); PH, Urine 5.5 (5.0-8.0); Protein,Urine Negative (Negative); Specific Gravity,Urine 1.015 (1.001-1.035); Urobilinogen,Urine <2.0 mg/dL (<2.0)
[2018-11-29 11:36] LABS: Erythrocyte Sedimentation Rate 25 mm/hr (0-20)
[2018-11-29 18:03] LABS: African American GFR (CKD) 101.8 (60.0-200.0); Albumin 3.9 g/dL (3.80-4.90); Albumin/Globulin Ratio 1.56 (1.60-3.17); Anion Gap 7.2 mmol/L (4.00-12.00); BUN/Creat Ratio 11.25 Ratio (12.00-20.00); C Reactive Protein 1.5 mg/dL (0.0-0.8); Calcium 9.2 mg/dL (8.7-10.3); Carbon Dioxide 26.8 mmol/L (21.6-31.8); Chol/HDL Ratio 4.35; Globulin 2.5 g/dL (1.6-3.3); Potassium 4.2 mmol/L (3.5-5.5); Total Bilirubin 0.2 mg/dL (0.3-1.2); Total Protein 6.4 g/dL (6.2-8.2)
[2018-11-29 18:10] LABS: T4, Free (Free Thyroxine) 0.9 ng/dL (0.80-1.80)
[2018-11-29 20:22] LABS: Hemoglobin A1C 6.5 % (4.0-6.0)
== END | disposition home or self-care (01) ==
LOC: LABWHC1 08:49
PROVIDERS: ATTEND Internal Medicine
DX: E11.9 Type 2 diabetes mellitus without complications (principal); E87.8 Other disorders of electrolyte and fluid balance, not elsewhere classified; E78.5 Hyperlipidemia, unspecified; N20.0 Calculus of kidney; E55.9 Vitamin D deficiency, unspecified
CPT/HCPCS: 36415; 80053; 80061; 81003; 82043; 82306; 82550; 82570; 83036; 84439; 84443; 85025; 85652; 86140

== ENCOUNTER → 2018-12-01 | Outpatient (CLI) | payer OTHER ==
[2018-12-01 17:11] LABS: Amylase 59 U/L (30-110)
[2018-12-01 18:16] LABS: Amorphous Sediment,Urine Rare /hpf; Appearance,Urine Cloudy (Clear); Bilirubin,Urine Negative (Negative); Blood,Urine Negative (Negative); Budding Yeast,Urine Occasional /hpf; Color,Urine Yellow; Glucose,Urine (UA) Negative (Negative); Ketones,Urine Negative (Negative); Leukocyte Esterase,Urine Small (Negative); Mucus,Urine Many /hpf; Nitrite,Urine Negative (Negative); PH, Urine 5.5 (5.0-8.0); Protein,Urine Negative (Negative); Specific Gravity,Urine 1.024 (1.001-1.035); Squamous Epithelial Cell,Urine 14 /hpf (0-4); Urobilinogen,Urine <2.0 mg/dL (<2.0); WBC,Urine 2 /hpf (0-5)
[2018-12-01 18:43] LABS: Basophils # (A) 0.1 k/uL (0-0.2); Basophils % (A) 1 %; Eosinophils # (A) 0.1 k/uL (0-0.7); Eosinophils % (A) 2 %; HCT 41.6 % (34.0-46.0); HGB 12.8 gm/dL (11.4-16.0); Lymphocytes # (A) 1.6 k/uL (1.0-4.8); Lymphocytes % (A) 38 %; MCH 28.4 pg (25.0-35.0); MCHC 30.8 g/dL (31.0-37.0); Mean Platelet Volume 8.3; Monocytes # (A) 0.2 k/uL (0-1.0); Monocytes % (A) 6 %; Neutrophils # (A) 2.2 k/uL (1.3-7.7); Neutrophils % (A) 51 %; Platelet Count 250 k/uL (150-450); RBC 4.52 m/uL (3.80-5.40); RDW 15.5 % (11.5-15.5); WBC 4.3 k/uL (3.8-10.6)
[2018-12-01 18:47] LABS: MCV 92.1 fL (80.0-100.0)
--- NOTE | 2018-12-02 12:36 | US ---
EXAMINATION TYPE: US abdomen complete DATE OF EXAM: 12/01/2018 COMPARISON: NONE CLINICAL HISTORY: R10.9 ABD PAIN. EXAM MEASUREMENTS: Liver Length: 15.4 cm Gallbladder Wall: 0.3 cm CBD: 0.4 cm Spleen: 8.8 cm Right Kidney: 11.0 x 4.1 x 4.1 cm Left Kidney: 12.0 x 4.6 x 5.3 cm Pancreas: wnl Liver: wnl Gallbladder: wnl Evidence for sonographic Walden's sign: No CBD: wnl Spleen: wnl Right Kidney: wnl Left Kidney: Unremarkable other than a prominent column of Nino. Upper IVC: wnl Abd Aorta: wnl The liver is homogenous. The intrahepatic portion of the IVC and proximal abdominal aorta are within normal limits. There is no evidence of cholelithiasis. Common bile duct is unremarkable. The visu alized portions of the pancreas are homogenous. The spleen is unremarkable. Kidneys are symmetric a nd free of hydronephrosis. No renal lesions are seen. IMPRESSION: No sonographic evidence of cholelithiasis nor acute cholecystitis. Unremarkable abdominal ultrasound.
== END | disposition home or self-care (01) ==
LOC: RADUSWWP 16:12
PROVIDERS: ATTEND Internal Medicine
DX: R10.9 Unspecified abdominal pain (principal); R10.11 Right upper quadrant pain
CPT/HCPCS: 36415; 76700; 81001; 82150; 83690; 85025

== ENCOUNTER → 2019-04-11 | Outpatient (CLI) | payer OTHER ==
--- NOTE | 2019-04-11 12:48 | XR ---
EXAMINATION TYPE: XR knee complete RT DATE OF EXAM: 04/11/2019 CLINICAL HISTORY: pain TECHNIQUE: Three views of the right knee are obtained. COMPARISON: None. FINDINGS: There is no acute fracture/dislocation. The tri-compartment joint spaces appear mildly na rrowed. The overlying soft tissue appears unremarkable. IMPRESSION: There is no acute fracture or dislocation.ICD 10 NO FRACTURE, INITIAL EVALUATION
[2019-04-11 18:44] LABS: Chol/HDL Ratio 4.42
[2019-04-11 21:12] LABS: Hemoglobin A1C 7.1 % (4.0-6.0)
== END | disposition home or self-care (01) ==
LOC: LABWHC1 11:45
PROVIDERS: ATTEND Internal Medicine
DX: M25.561 Pain in right knee (principal); E11.9 Type 2 diabetes mellitus without complications; E78.5 Hyperlipidemia, unspecified
CPT/HCPCS: 36415; 80061; 82947; 83036; 85652

== ENCOUNTER → 2019-04-12 | Outpatient (CLI) | payer OTHER ==
[2019-04-12 10:59] LABS: Basophils % (A) 1 %; Eosinophils # (A) 0.1 k/uL (0-0.7); Eosinophils % (A) 2 %; HCT 40.2 % (34.0-46.0); HGB 13.1 gm/dL (11.4-16.0); Lymphocytes # (A) 1.2 k/uL (1.0-4.8); Lymphocytes % (A) 38 %; MCH 29.8 pg (25.0-35.0); MCHC 32.5 g/dL (31.0-37.0); MCV 91.6 fL (80.0-100.0); Mean Platelet Volume 8.7; Monocytes # (A) 0.2 k/uL (0-1.0); Monocytes % (A) 5 %; Neutrophils # (A) 1.6 k/uL (1.3-7.7); Neutrophils % (A) 52 %; Platelet Count 204 k/uL (150-450); RBC 4.39 m/uL (3.80-5.40); RDW 14.5 % (11.5-15.5); WBC 3.1 k/uL (3.8-10.6)
[2019-04-12 17:32] LABS: African American GFR (CKD) 101.8 (60.0-200.0); Albumin 3.9 g/dL (3.80-4.90); Albumin/Globulin Ratio 1.56 (1.60-3.17); Anion Gap 10.1 mmol/L (4.00-12.00); BUN/Creat Ratio 11.25 Ratio (12.00-20.00); Calcium 9.3 mg/dL (8.7-10.3); Carbon Dioxide 24.9 mmol/L (21.6-31.8); Globulin 2.5 g/dL (1.6-3.3); Non-African American GFR(CKD) 87.8 (60.0-200.0); Total Bilirubin 0.3 mg/dL (0.2-1.2); Total Protein 6.4 g/dL (6.2-8.2)
== END | disposition home or self-care (01) ==
LOC: LABWHC1 09:58
PROVIDERS: ATTEND Internal Medicine
DX: A09 Infectious gastroenteritis and colitis, unspecified (principal)
CPT/HCPCS: 36415; 80053; 82272; 83630; 85025; 87045; 87046; 87324

== ENCOUNTER → 2019-04-18 | Outpatient (CLI) | payer OTHER ==
--- NOTE | 2019-04-18 12:20 | US ---
EXAMINATION TYPE: US abdomen complete DATE OF EXAM: 04/18/2019 COMPARISON: NONE CLINICAL HISTORY: 48-year-old female R10.84 Generalized Abdominal Pain. TECHNIQUE: Multiple sonographic images of the abdomen are obtained. FINDINGS: EXAM MEASUREMENTS: Liver Length: 13.5 cm Gallbladder Wall: .2 cm CBD: .3 cm Spleen: 9.3 cm Right Kidney: 12.7 x 3.5 x 5.1 cm Left Kidney: 11.1 x 4.6 x 4.1 cm Pancreas: Tail obscured by overlying bowel gas. Visualized portions show no gross abnormality. Liver: Increased attenuation Gallbladder: wnl Evidence for sonographic Walden's sign: No CBD: wnl Spleen: wnl Kidneys: No hydronephrosis. Upper IVC: wnl Abd Aorta: wnl IMPRESSION: Suboptimal visualization of the pancreatic tail. Otherwise, unremarkable sonographic examination of t he abdomen.
== END | disposition home or self-care (01) ==
LOC: RADUSWWP 09:56
PROVIDERS: ATTEND Internal Medicine
DX: R10.84 Generalized abdominal pain (principal); Z91.040 Latex allergy status; Z91.018 Allergy to other foods
CPT/HCPCS: 76700

== ENCOUNTER 2019-06-30 11:45 | Emergency (ER) | payer OTHER ==
[2019-06-30 11:53] VITALS: BP 125/86; PULSE 81; RESP 18; TEMP 98.3
[2019-06-30] MEDS ORDERED: ASPIRIN 81 MG PO STA (11:56)
--- NOTE | 2019-06-30 12:12 | ED ---
Chest Pain HPI - General Chief Complaint: Chest Pain Stated Complaint: nausea,chest pain Time Seen by Provider: 06/30/19 11:56 Source: patient Mode of arrival: ambulatory Limitations: no limitations - History of Present Illness Initial Comments: 31-year-old female with DMII presents today for chief complaint of chest pressure ongoing for the past 5 days. Patient states Wednesday night she developed chest pressure she states that the right side and at times radiates on the right arm. She told she feels the same pressure slightly in her back. Patient denies any sharp ripping tearing pain denies any pain with deep inspiration hemoptysis or history of pulmonary elbow some. Patient states she did have a deep venous thrombosis before one of her lower extremities secondary to exogenous hormone use. Patient has a very remote history of smoking at age 19. Patient denies SOB at rest, states he has slight with ambulating. She denies fevers, cough. leg swelling or edema. Patient states that she presented to her primary care office on Wednesday where EKG was obtained revealing no acute abnormalities. Patient denies nausea, jaw pain, states pain seems slightly worse when sitting up. Patient denies additional complaints. Upon arrival patient appears well. - Related Data Home Medications Medication Instructions Recorded Confirmed Atorvastatin [Lipitor] 20 mg PO DAILY 06/30/19 06/30/19 Diclofenac Sodium [Voltaren Gel] 2 gram TOPICAL QID PRN 06/30/19 06/30/19 Omeprazole [PriLOSEC] 40 mg PO DAILY 06/30/19 06/30/19 metFORMIN HCL [Glucophage] 500 mg PO BID 06/30/19 06/30/19 Allergies Allergy/AdvReac Type Severity Reaction Status Date / Time latex Allergy Rash/Hives Verified 06/30/19 11:53 JELLO AdvReac Swelling Uncoded 06/30/19 11:53 Review of Systems ROS Statement: Those systems with pertinent positive or pertinent negative responses have been documented in the HPI. ROS Other: All systems not noted in ROS Statement are negative. EKG Findings - EKG Comments: EKG Findings:: Ventricular rate 74 bpm, NJ interval 174 ms, QRS mu-ism 74 ms, QT/QTC 388/4:30 milliseconds. Is appears to be normal sinus. No ST elevation or depression. Past Medical History Past Medical History: Deep Vein Thrombosis (DVT) Additional Past Medical History / Comment(s): kidney stones, low iron History of Any Multi-Drug Resistant Organisms: None Reported Past Surgical History: Hysterectomy, Uterine Ablation Additional Past Surgical History / Comment(s): lithotripsy, D&C Past Anesthesia/Blood Transfusion Reactions: No Reported Reaction Past Psychological History: No Psychological Hx Reported, Panic Disorder Smoking Status: Never smoker Past Alcohol Use History: None Reported Past Drug Use History: None Reported - Past Family History Mother Family Medical History: Diabetes Mellitus General Exam - General Exam Comments Initial Comments: General: The patient is awake and alert, in no distress Eye: +3 mm pupils are equal, round and reactive to light, extra-ocular movements are intact. No nystagmus. There is normal conjunctiva bilaterally. No signs of icterus. Ears, nose, mouth and throat: There are moist mucous membranes and no oral lesions. Neck: The neck is supple, there is no tenderness or JVD. Cardiovascular: There is a regular rate and rhythm. No murmur, rub or gallop is appreciated. Respiratory: Lungs are clear to auscultation, respirations are non-labored, breath sounds are equal. No wheezes, stridor, rales, or rhonchi. Gastrointestinal: Soft, non-distended, non-tender abdomen without masses or organomegaly noted. There is no rebound or guarding present. Musculoskeletal: Normal ROM, no tenderness. Strength 5/5. Sensation intact. Radial pulses equal bilaterally 2+. Neurological: A&O x 3. CN II-XII intact, There are no obvious motor or sensory deficits. Coordination appears grossly intact. Speech is normal. Skin: Skin is warm and dry and no rashes or lesions are noted. No LE edema/no unilateral leg swelling. Psychiatric: Cooperative, appropriate mood & affect, normal judgment. Limitations: no limitations Course Vital Signs 06/30/19 11:46 Temperature 98.3 F Pulse Rate 81 Respiratory 18 Rate Blood Pressure 125/86 O2 Sat by Pulse 99 Oximetry Chest Pain MDM - MDM Discussed results of initial troponin with patient as well recommendation for admission for further cardiac evaluation by cardiology/serial troponins as gaudencio has concerning RF and history for typical chest pain. Patient refused, stating she does not feel its that serious. I discussed risk of and disability. Patient is aware refused further care, left AMA. States she has scheduled stress and ECHO for Wednesday. Disposition Clinical Impression: Chest pain, Left against medical advice Disposition: Left Against Medical Advice Condition: Undetermined Is patient prescribed a controlled substance at d/c from ED?: No Referrals: Moreno Lilly MD [Primary Care Provider] - 1-2 days Time of Disposition: 13:43
[2019-06-30 12:19] LABS: Basophils % (A) 1 %; Eosinophils # (A) 0.1 k/uL (0-0.7); Eosinophils % (A) 2 %; HCT 44.4 % (34.0-46.0); HGB 14.2 gm/dL (11.4-16.0); Lymphocytes # (A) 1.6 k/uL (1.0-4.8); Lymphocytes % (A) 38 %; MCH 29.5 pg (25.0-35.0); MCHC 31.9 g/dL (31.0-37.0); MCV 92.5 fL (80.0-100.0); Mean Platelet Volume 8.6; Monocytes # (A) 0.2 k/uL (0-1.0); Monocytes % (A) 4 %; Neutrophils # (A) 2.3 k/uL (1.3-7.7); Neutrophils % (A) 53 %; Platelet Count 204 k/uL (150-450); RDW 14.5 % (11.5-15.5); WBC 4.2 k/uL (3.8-10.6)
--- NOTE | 2019-06-30 12:25 | XR ---
EXAMINATION TYPE: XR chest 2V DATE OF EXAM: 06/30/2019 COMPARISON: 05/02/2018 HISTORY: Chest pain TECHNIQUE: Frontal and lateral views of the chest are obtained. FINDINGS: Multiple leads overlie the chest. There is no focal air space opacity, pleural effusion, o r pneumothorax seen. The cardiac silhouette size is within normal limits. The osseous structures a re intact. IMPRESSION: No acute cardiopulmonary process.
[2019-06-30 12:29] LABS: ALT 12 U/L (4-34); AST 22 U/L (14-36); African American GFR (CKD) >90 (>60 ml/min/1.73 sqM); Albumin 4.2 g/dL (3.5-5.0); Alkaline Phosphatase 56 U/L (38-126); Anion Gap 10 mmol/L; Blood Urea Nitrogen 11 mg/dL (7-17); Calcium 9.4 mg/dL (8.4-10.2); Carbon Dioxide 23 mmol/L (22-30); Chloride 104 mmol/L (98-107); Glucose 113 mg/dL (74-99); Magnesium 1.8 mg/dL (1.6-2.3); Non-African American GFR(CKD) >90 (>60 ml/min/1.73 sqM); Potassium 4.2 mmol/L (3.5-5.1); Sodium 137 mmol/L (137-145); Total Bilirubin 0.6 mg/dL (0.2-1.3); Total Protein 7.8 g/dL (6.3-8.2)
[2019-06-30 12:35] LABS: D-Dimer 0.46 mg/L FEU (<0.60); Partial Thromboplastin Time 23.9 sec (22.0-30.0); Prothrombin Time 10.2 sec (9.0-12.0)
== END 2019-06-30 14:02 | disposition left against medical advice (07) ==
LOC: EC 11:45
DX: R07.89 Other chest pain (principal); Z53.29 Procedure and treatment not carried out because of patient's decision for other reasons; E11.9 Type 2 diabetes mellitus without complications; Z79.84 Long term (current) use of oral hypoglycemic drugs; Z79.899 Other long term (current) drug therapy; Z91.040 Latex allergy status; Z91.018 Allergy to other foods; Z86.718 Personal history of other venous thrombosis and embolism; Z87.891 Personal history of nicotine dependence
CPT/HCPCS: 36415; 71046; 80053; 83690; 83735; 83880; 84484; 85025; 85379; 85610; 85730; 93005; 99285

== ENCOUNTER → 2019-07-03 | Outpatient (CLI) | payer OTHER ==
--- NOTE | 2019-07-03 10:25 | P.STRESS ---
- Stress Test Note Stress Test Results/Findings: Exam Performed: stress echo exercise Exam Date: 07/03/19 Reason for Exam: ANGINA PECTORIS, SYNCOPE Height: 5 ft 6 in Weight: 117 kg Protocol: STRESS ECHO Stage: 3 Duration of Exercise: 6:36 Resting Heart Rate: 74 Resting Blood Pressure: 132/83 Maximum Achieved Heart Rate: 158 Maximum Achieved Blood Pressure: 165/104 85% PMHR: 146 100% PMHR: 172 METS: 7.9 Technologist Comment: PEAK IMAGES NOT ACQUIRED DUE TO EQUIPMENT MALFUNCTION Stress Test Results/Findings: This is a 49-year-old female with hypertension, diabetes and palpitations being evaluated for symptoms of chest pain and shortness of breath. Blood pressure at rest was 130/80. Pulse rate of 74. Patient walked on a Gideon protocol for 6 minutes and 36 seconds achieving a maximum of 158 with a blood pressure of 213/113. EKGs at baseline showed sinus rhythm with normal CO interval, QRS duration. EKG taken during and after exercise did not reveal any significant changes from the baseline. Echo data: Baseline echo images show normal wall motion and thickening. Exercise echo images showed augmentation of wall motion and thickening in all the segments. Final impression : #1. Negative stress test #2. Negative stress echo.
[2019-07-03 17:00] LABS: Hemoglobin A1C 6.4 % (4.0-6.0)
== END | disposition home or self-care (01) ==
LOC: RADNMMAIN 08:29
PROVIDERS: ATTEND Internal Medicine
DX: I20.9 Angina pectoris, unspecified (principal); R55 Syncope and collapse; E78.5 Hyperlipidemia, unspecified; E11.65 Type 2 diabetes mellitus with hyperglycemia; E66.9 Obesity, unspecified; Z91.040 Latex allergy status; Z88.7 Allergy status to serum and vaccine
CPT/HCPCS: 82947; 83036; 93351

== ENCOUNTER → 2019-10-24 | Outpatient (CLI) | payer OTHER ==
[2019-10-24 19:05] LABS: African American GFR (CKD) 87.6 (60.0-200.0); BUN/Creat Ratio 15.56 Ratio (12.00-20.00); Calcium 9.7 mg/dL (8.7-10.3); Non-African American GFR(CKD) 75.6 (60.0-200.0); Potassium 4.8 mmol/L (3.5-5.5)
[2019-10-24 19:39] LABS: Hemoglobin A1C 6.3 % (4.0-6.0)
== END | disposition home or self-care (01) ==
LOC: LABWHC1 11:38
PROVIDERS: ATTEND Internal Medicine
DX: R51 Headache (principal)
CPT/HCPCS: 36415; 80048; 83036

== ENCOUNTER 2020-02-01 12:42 | Emergency (ER) | payer OTHER ==
[2020-02-01] MEDS ORDERED: SODIUM CHLORIDE 0.9% 1,000 ML IV STA (13:06)
[2020-02-01] MEDS ORDERED: ONDANSETRON 4 MG/2 ML VIAL IVP STA (13:06)
[2020-02-01] MEDS ORDERED: PANTOPRAZOLE 40 MG/10 ML VIAL IVP STA (13:06)
[2020-02-01] MEDS ORDERED: METOCLOPRAMIDE 5 MG/ML 2 ML VIAL IVP STA (13:07)
[2020-02-01] MEDS ORDERED: diphenhydrAMINE 50 MG/ML 1 ML VIAL IVP STA (13:07)
--- NOTE | 2020-02-01 13:07 | ED ---
Headache HPI - General Chief Complaint: Headache Stated Complaint: headache, abd/back pain Time Seen by Provider: 02/01/20 13:06 Mode of arrival: ambulatory Limitations: no limitations - History of Present Illness Initial Comments: 49-year-old female presenting to the emergency department with multiple chief complaints. She reports about 4 days ago she developed some epigastric and right upper quadrant pain especially after eating. She does report nausea with 3 episodes of nonbilious and nonbloody vomiting over the past 4 days. She reports over the pain radiates to the right lower back region. She does report increased frequency and urgency but no dysuria. Denies hematuria, hematochezia or melena. She also reports a headache that was a gradual onset and not the wo rst headache of her life. Denies photophobia. She denies any visual disturbances, chest pain or shortness of breath. She does report having a fever at home of unknown temperature. She does report some chills as well. Denies taking medication to alleviate the symptoms. Only abdominal surgery is a hysterectomy. Denies vaginal symptoms. - Related Data Home Medications Medication Instructions Recorded Confirmed metFORMIN HCL [Glucophage] 500 mg PO BID 06/30/19 02/01/20 Latanoprost [Xalatan 0.005%] 1 drop BOTH EYES HS 02/01/20 02/01/20 Turmeric Root Extract [Turmeric] 500 mg PO DAILY 02/01/20 02/01/20 Previous Rx's Medication Instructions Recorded Ondansetron Odt [Zofran Odt] 4 mg PO Q8HR PRN #20 tab 02/01/20 Allergies Allergy/AdvReac Type Severity Reaction Status Date / Time latex Allergy Rash/Hives Verified 02/01/20 14:52 JELLO AdvReac Swelling Uncoded 06/30/19 11:53 Review of Systems ROS Statement: Those systems with pertinent positive or pertinent negative responses have been documented in the HPI. ROS Other: All systems not noted in ROS Statement are negative. Past Medical History Past Medical History: Diabetes Mellitus, Deep Vein Thrombosis (DVT) Additional Past Medical History / Comment(s): kidney stones, low iron History of Any Multi-Drug Resistant Organisms: None Reported Past Surgical History: Hysterectomy, Uterine Ablation Additional Past Surgical History / Comment(s): lithotripsy, D&C Past Anesthesia/Blood Transfusion Reactions: No Reported Reaction Past Psychological History: No Psychological Hx Reported, Panic Disorder Smoking Status: Never smoker Past Alcohol Use History: None Reported Past Drug Use History: None Reported - Past Family History Mother Family Medical History: Diabetes Mellitus General Exam Limitations: no limitations General appearance: alert, in no apparent distress, obese Head exam: Present: atraumatic, normocephalic, normal inspection Eye exam: Present: normal appearance, PERRL, EOMI Pupils: Present: normal accommodation ENT exam: Present: normal exam, normal oropharynx, mucous membranes moist, TM's normal bilaterally, normal external ear exam Neck exam: Present: normal inspection, full ROM. Absent: tenderness Respiratory exam: Present: normal lung sounds bilaterally. Absent: respiratory distress, wheezes, rales Cardiovascular Exam: Present: regular rate, normal rhythm, normal heart sounds. Absent: systolic murmur, diastolic murmur GI/Abdominal exam: Present: soft, tenderness (Right upper quadrant epigastric abdominal pain. Positive Walden sign). Absent: distended, guarding, rebound, rigid Extremities exam: Present: normal inspection, full ROM, normal capillary refill. Absent: tenderness, pedal edema, joint swelling, calf tenderness Back exam: Present: normal inspection, full ROM, CVA tenderness (R) (Mild). Absent: tenderness, CVA tenderness (L), muscle spasm, paraspinal tenderness, vertebral tenderness Neurological exam: Present: alert, oriented X3, normal gait Psychiatric exam: Present: normal affect, normal mood. Absent: agitated Skin exam: Present: warm, dry, intact, normal color Course Vital Signs 02/01/20 02/01/20 12:53 15:59 Temperature 98.4 F 98 F Pulse Rate 79 78 Respiratory 18 16 Rate Blood Pressure 126/89 128/74 O2 Sat by Pulse 99 99 Oximetry Medical Decision Making - Medical Decision Making 49-year-old female presenting to the emergency department with multiple chief complaints. On physical examination, she does have right upper quadrant tenderness with a positive Walden sign. No CVA tenderness. Ultrasound right upper quadrant region reveals no acute findings. CBC reveals mild leukopenia. CMP is unremarkable. UA is negative for any signs of urinary tract infection. Patient was given symptomatic relief with analgesia and antiemetics. On reevaluation, reports improvement in symptoms. Advised the patient to follow up with a primary care physician and a GI specialist. Strict return parameters were thoroughly discussed the patient was understanding and agreeable. Case discussed with physician. - Lab Data Result diagrams: 02/01/20 13:29 02/01/20 13:29 Lab Results 02/01/20 02/01/20 02/01/20 Range/Units 13:29 13:29 13:29 WBC 2.3 L (3.8-10.6) k/uL RBC 5.12 (3.80-5.40) m/uL Hgb 15.0 (11.4-16.0) gm/dL Hct 46.3 H (34.0-46.0) % MCV 90.3 (80.0-100.0) fL MCH 29.2 (25.0-35.0) pg MCHC 32.4 (31.0-37.0) g/dL RDW 14.4 (11.5-15.5) % Plt Count 163 (150-450) k/uL MPV 8.4 Neutrophils % 54 % Lymphocytes % 39 % Monocytes % 4 % Eosinophils % 1 % Basophils % 1 % Neutrophils # 1.3 (1.3-7.7) k/uL Lymphocytes # 0.9 L (1.0-4.8) k/uL Monocytes # 0.1 (0-1.0) k/uL Eosinophils # 0.0 (0-0.7) k/uL Basophils # 0.0 (0-0.2) k/uL Sodium 139 (137-145) mmol/L Potassium 4.0 (3.5-5.1) mmol/L Chloride 104 (98-107) mmol/L Carbon Dioxide 29 (22-30) mmol/L Anion Gap 6 mmol/L BUN 9 (7-17) mg/dL Creatinine 0.81 (0.52-1.04) mg/dL Est GFR (CKD-EPI)AfAm >90 (>60 ml/min/1.73 sqM) Est GFR (CKD-EPI)NonAf 87 (>60 ml/min/1.73 sqM) Glucose 111 H (74-99) mg/dL Calcium 9.1 (8.4-10.2) mg/dL Total Bilirubin 0.3 (0.2-1.3) mg/dL AST 21 (14-36) U/L ALT 16 (4-34) U/L Alkaline Phosphatase 66 (38-126) U/L Total Protein 7.8 (6.3-8.2) g/dL Albumin 4.2 (3.5-5.0) g/dL Lipase 68 (23-300) U/L Urine Color Yellow Urine Appearance Cloudy H (Clear) Urine pH 5.5 (5.0-8.0) Ur Specific Merriman 1.023 (1.001-1.035) Urine Protein Negative (Negative) Urine Glucose (UA) Negative (Negative) Urine Ketones Negative (Negative) Urine Blood Negative (Negative) Urine Nitrite Negative (Negative) Urine Bilirubin Negative (Negative) Urine Urobilinogen <2.0 (<2.0) mg/dL Ur Leukocyte Esterase Moderate H (Negative) Urine RBC 7 H (0-5) /hpf Urine WBC 4 (0-5) /hpf Ur Squamous Epith Cells 6 H (0-4) /hpf Urine Bacteria Rare H (None) /hpf Urine Mucus Rare H (None) /hpf Coronavirus (PCR) (Not Detected) 02/01/20 Range/Units 15:27 WBC (3.8-10.6) k/uL RBC (3.80-5.40) m/uL Hgb (11.4-16.0) gm/dL Hct (34.0-46.0) % MCV (80.0-100.0) fL MCH (25.0-35.0) pg MCHC (31.0-37.0) g/dL RDW (11.5-15.5) % Plt Count (150-450) k/uL MPV Neutrophils % % Lymphocytes % % Monocytes % % Eosinophils % % Basophils % % Neutrophils # (1.3-7.7) k/uL Lymphocytes # (1.0-4.8) k/uL Monocytes # (0-1.0) k/uL Eosinophils # (0-0.7) k/uL Basophils # (0-0.2) k/uL Sodium (137-145) mmol/L Potassium (3.5-5.1) mmol/L Chloride (98-107) mmol/L Carbon Dioxide (22-30) mmol/L Anion Gap mmol/L BUN (7-17) mg/dL Creatinine (0.52-1.04) mg/dL Est GFR (CKD-EPI)AfAm (>60 ml/min/1.73 sqM) Est GFR (CKD-EPI)NonAf (>60 ml/min/1.73 sqM) Glucose (74-99) mg/dL Calcium (8.4-10.2) mg/dL Total Bilirubin (0.2-1.3) mg/dL AST (14-36) U/L ALT (4-34) U/L Alkaline Phosphatase (38-126) U/L Total Protein (6.3-8.2) g/dL Albumin (3.5-5.0) g/dL Lipase (23-300) U/L Urine Color Urine Appearance (Clear) Urine pH (5.0-8.0) Ur Specific Merriman (1.001-1.035) Urine Protein (Negative) Urine Glucose (UA) (Negative) Urine Ketones (Negative) Urine Blood (Negative) Urine Nitrite (Negative) Urine Bilirubin (Negative) Urine Urobilinogen (<2.0) mg/dL Ur Leukocyte Esterase (Negative) Urine RBC (0-5) /hpf Urine WBC (0-5) /hpf Ur Squamous Epith Cells (0-4) /hpf Urine Bacteria (None) /hpf Urine Mucus (None) /hpf Coronavirus (PCR) Not Detected (Not Detected) Disposition Clinical Impression: Nausea & vomiting, Abdominal pain, Headache Disposition: HOME SELF-CARE Condition: Stable Instructions (If sedation given, give patient instructions): Low Fat Diet (ED), Abdominal Pain (ED) Additional Instructions: Follow-up with her primary care physician. Self isolate until he received the results of culture testing. Take prescribed medication as directed. Return to emergency department if symptoms worsen. Prescriptions: Ondansetron Odt [Zofran Odt] 4 mg PO Q8HR PRN #20 tab PRN Reason: Nausea Is patient prescribed a controlled substance at d/c from ED?: No Referrals: Moreno Lilly MD [Primary Care Provider] - 1-2 days Time of Disposition: 15:19
[2020-02-01 13:50] LABS: Basophils % (A) 1 %; Eosinophils % (A) 1 %; HCT 46.3 % (34.0-46.0); Lymphocytes # (A) 0.9 k/uL (1.0-4.8); Lymphocytes % (A) 39 %; MCH 29.2 pg (25.0-35.0); MCHC 32.4 g/dL (31.0-37.0); MCV 90.3 fL (80.0-100.0); Mean Platelet Volume 8.4; Monocytes # (A) 0.1 k/uL (0-1.0); Monocytes % (A) 4 %; Neutrophils # (A) 1.3 k/uL (1.3-7.7); Neutrophils % (A) 54 %; Platelet Count 163 k/uL (150-450); RBC 5.12 m/uL (3.80-5.40); RDW 14.4 % (11.5-15.5); WBC 2.3 k/uL (3.8-10.6)
[2020-02-01 13:58] LABS: ALT 16 U/L (4-34); AST 21 U/L (14-36); African American GFR (CKD) >90 (>60 ml/min/1.73 sqM); Albumin 4.2 g/dL (3.5-5.0); Alkaline Phosphatase 66 U/L (38-126); Anion Gap 6 mmol/L; Blood Urea Nitrogen 9 mg/dL (7-17); Calcium 9.1 mg/dL (8.4-10.2); Carbon Dioxide 29 mmol/L (22-30); Chloride 104 mmol/L (98-107); Glucose 111 mg/dL (74-99); Lipase 68 U/L (23-300); Non-African American GFR(CKD) 87 (>60 ml/min/1.73 sqM); Sodium 139 mmol/L (137-145); Total Bilirubin 0.3 mg/dL (0.2-1.3); Total Protein 7.8 g/dL (6.3-8.2)
[2020-02-01 14:13] LABS: Appearance,Urine Cloudy (Clear); Bacteria,Urine Rare /hpf; Bilirubin,Urine Negative (Negative); Blood,Urine Negative (Negative); Color,Urine Yellow; Glucose,Urine (UA) Negative (Negative); Ketones,Urine Negative (Negative); Leukocyte Esterase,Urine Moderate (Negative); Mucus,Urine Rare /hpf; Nitrite,Urine Negative (Negative); PH, Urine 5.5 (5.0-8.0); Protein,Urine Negative (Negative); RBC,Urine 7 /hpf (0-5); Specific Gravity,Urine 1.023 (1.001-1.035); Squamous Epithelial Cell,Urine 6 /hpf (0-4); Urobilinogen,Urine <2.0 mg/dL (<2.0); WBC,Urine 4 /hpf (0-5)
[2020-02-01 16:00] VITALS: BP 128/74; PULSE 78; RESP 16; TEMP 98
--- NOTE | 2020-02-02 11:47 | US ---
EXAMINATION TYPE: US abdomen limited DATE OF EXAM: 02/01/2020 COMPARISON: NONE CLINICAL HISTORY: 49 year-old female right upper quadrant tenderness, pain after eating. TECHNIQUE: Multiple sonographic images of the right upper quadrant are obtained. FINDINGS: EXAM MEASUREMENTS: Liver Length: 15 cm Gallbladder Wall: .2 cm CBD: .4 cm Right Kidney: 9.9 x 3.6 x 4.4 cm Large patient body habitus limits the evaluation. Pancreas: Tail obscured by overlying bowel gas. The remaining portions show no gross abnormality. Liver: Limited assessment due to large patient body habitus. Visualized portions show no gross abnorm ality. Other portions appear attenuating. Gallbladder: wnl Evidence for sonographic Walden's sign: No CBD: wnl Right Kidney: wnl IMPRESSION: 1. Liver attenuation suspected to be on the basis of patient's large body habitus rather than fatty i nfiltration. This results in overall limited assessment of the liver. 2. No gallstones, acute cholecystitis, or biliary ductal dilatation.
== END 2020-02-01 15:59 | disposition home or self-care (01) ==
LOC: EC 12:42
DX: R10.11 Right upper quadrant pain (principal); R11.2 Nausea with vomiting, unspecified; R51.9 Headache, unspecified; R10.811 Right upper quadrant abdominal tenderness; D72.819 Decreased white blood cell count, unspecified; E11.9 Type 2 diabetes mellitus without complications; Z79.84 Long term (current) use of oral hypoglycemic drugs; Z91.040 Latex allergy status; Z91.048 Other nonmedicinal substance allergy status; Z90.710 Acquired absence of both cervix and uterus; Z86.718 Personal history of other venous thrombosis and embolism; Z20.828 Contact with and (suspected) exposure to other viral communicable diseases; Z87.442 Personal history of urinary calculi
CPT/HCPCS: 99284; 96374; 96375 ×2; 96361; 36415; 93005; 80053; 83690; 85025; 81001; 76705; U0003; J1200; J2765; C9113

== ENCOUNTER → 2020-02-05 | Outpatient (CLI) | payer OTHER ==
--- NOTE | 2020-02-06 09:46 | XR ---
EXAMINATION TYPE: XR chest 2V DATE OF EXAM: 02/05/2020 COMPARISON: 06/30/2019 INDICATION: Bronchitis TECHNIQUE: Frontal and lateral views of the chest are obtained. FINDINGS: The heart size is normal. The pulmonary vasculature is normal. There is some minimal linear opacity in the left midlung be some mild atelectasis. Suspicious infiltr ates are not otherwise evident.. IMPRESSION: 1. Minimal left plate atelectasis.
== END | disposition home or self-care (01) ==
LOC: RAD 16:15
PROVIDERS: ATTEND Internal Medicine
DX: J98.11 Atelectasis (principal)
CPT/HCPCS: 71046; 87502

== ENCOUNTER → 2020-05-21 | Outpatient (CLI) | payer OTHER ==
--- NOTE | 2020-05-22 11:55 | XR ---
EXAMINATION TYPE: XR wrist complete LT DATE OF EXAM: 05/21/2020 COMPARISON: None HISTORY: Persistent pain 4 weeks post injury TECHNIQUE: 4 view left wrist FINDINGS: No acute fractures or dislocations are evident. Joint spaces appear preserved. Soft tissues appear normal. IMPRESSION: 1. Normal 4 view left wrist.
== END | disposition home or self-care (01) ==
LOC: RADXRMAIN 15:31
PROVIDERS: ATTEND Internal Medicine
DX: M25.532 Pain in left wrist (principal)

== ENCOUNTER → 2020-07-01 | Outpatient (CLI) | payer OTHER ==
--- NOTE | 2020-07-01 09:26 | NM ---
Nuclear medicine hepatobiliary scan. HISTORY: Pain. DOSAGE: The patient received 8 ounces and sure plus and 5.0 mCi of Technetium 99m Choletec. FINDINGS: There is normal hepatic extraction. The gallbladder is seen by 20 minutes. There is bilia ry to bowel clearance by 55 minutes. Ejection fraction is 83%. IMPRESSION: 1. No evidence of cholecystitis. 2. Ejection fraction 83%.
== END | disposition home or self-care (01) ==
LOC: RADNMMAIN 07:13
PROVIDERS: ATTEND Internal Medicine
DX: R10.9 Unspecified abdominal pain (principal)
CPT/HCPCS: 78226; A9537

== ENCOUNTER → 2020-09-04 | Outpatient (CLI) | payer OTHER ==
[2020-09-04 20:42] LABS: Hemoglobin A1C 6.6 % (4.0-6.0)
[2020-09-04 22:12] LABS: African American GFR (CKD) 100.3 (60.0-200.0); Albumin 4.2 g/dL (3.80-4.90); Albumin/Globulin Ratio 1.45 (1.60-3.17); Anion Gap 8.7 mmol/L (4.00-12.00); Calcium 9.1 mg/dL (8.7-10.3); Carbon Dioxide 23.3 mmol/L (21.6-31.8); Chol/HDL Ratio 5.08; Globulin 2.9 g/dL (1.6-3.3); LDL Cholesterol,Calculated 179.8 mg/dL (0.0-131.0); Non-African American GFR(CKD) 86.6 (60.0-200.0); Potassium 4.3 mmol/L (3.5-5.5); Total Bilirubin 0.4 mg/dL (0.3-1.2); Total Protein 7.1 g/dL (6.2-8.2); VLDL Calculation 20.2 mg/dL (5.00-40.00)
== END | disposition home or self-care (01) ==
LOC: LABWHC1 12:16
PROVIDERS: ATTEND Internal Medicine
DX: E78.5 Hyperlipidemia, unspecified (principal); I10 Essential (primary) hypertension; E11.65 Type 2 diabetes mellitus with hyperglycemia
CPT/HCPCS: 36415; 80053; 80061; 83036

== ENCOUNTER → 2020-11-13 | Outpatient (CLI) | payer OTHER ==
--- NOTE | 2020-11-13 15:44 | XR ---
EXAMINATION TYPE: XR abdomen 2V DATE OF EXAM: 11/13/2020 COMPARISON: None HISTORY: Atelectasis TECHNIQUE: Abdomen is examined in supine view and upright view FINDINGS: Normal bowel gas is present. Psoas margins are normal. No organomegaly is evident. No free air is evident. No suspicious air-fluid levels or differential air-fluid levels are present. Mild scoliosis within the lumbar spine. Femoral heads articulate with the acetabulum. IMPRESSION: 1. No acute abdomen process. 2. Mild scoliosis.
[2020-11-13 16:01] LABS: Basophils % (A) 1 %; Eosinophils # (A) 0.1 k/uL (0-0.7); Eosinophils % (A) 3 %; HCT 45.3 % (34.0-46.0); HGB 15.2 gm/dL (11.4-16.0); Lymphocytes # (A) 1.8 k/uL (1.0-4.8); Lymphocytes % (A) 41 %; MCH 31.1 pg (25.0-35.0); MCHC 33.6 g/dL (31.0-37.0); MCV 92.6 fL (80.0-100.0); Mean Platelet Volume 8.5; Monocytes # (A) 0.2 k/uL (0-1.0); Monocytes % (A) 6 %; Neutrophils # (A) 2.1 k/uL (1.3-7.7); Neutrophils % (A) 48 %; Platelet Count 238 k/uL (150-450); RDW 13.8 % (11.5-15.5); WBC 4.4 k/uL (3.8-10.6)
--- NOTE | 2020-11-13 16:07 | XR ---
EXAMINATION TYPE: XR chest 2V DATE OF EXAM: 11/13/2020 COMPARISON: 04/07/2019 INDICATION: Right-sided pain TECHNIQUE: Frontal and lateral views of the chest are obtained. FINDINGS: The heart size is normal. The pulmonary vasculature is normal. The lungs are clear. No pneumothorax is evident. IMPRESSION: 1. No acute pulmonary process.
[2020-11-13 16:13] LABS: Chloride 103 mmol/L (98-107); Sodium 138 mmol/L (137-145)
[2020-11-13 16:15] LABS: ALT 13 U/L (4-34); AST 18 U/L (14-36); African American GFR (CKD) >90 (>60 ml/min/1.73 sqM); Anion Gap 8 mmol/L; Blood Urea Nitrogen 10 mg/dL (7-17); Calcium 9.7 mg/dL (8.4-10.2); Carbon Dioxide 27 mmol/L (22-30); Glucose 98 mg/dL (74-99); Non-African American GFR(CKD) >90 (>60 ml/min/1.73 sqM)
== END | disposition home or self-care (01) ==
LOC: RADXRMAIN 14:55
PROVIDERS: ATTEND Internal Medicine
DX: J98.11 Atelectasis (principal); R07.9 Chest pain, unspecified
CPT/HCPCS: 36415; 71046; 74019; 80048; 84450; 84460; 85025

== ENCOUNTER → 2021-03-12 | Outpatient (CLI) | payer OTHER | END | disposition home or self-care (01) | LOC: RADMRIMAIN 17:09 | PROVIDERS: ATTEND Psychiatry & Neurology Neurology | DX: Z53.9 Procedure and treatment not carried out, unspecified reason (principal) ==

== ENCOUNTER → 2021-09-03 | Outpatient (CLI) | payer OTHER ==
[2021-09-03 18:18] LABS: Basophils # (A) 0.02 X 10*3/uL (0.00-0.10); Basophils % (A) 0.5 %; Eosinophils # (A) 0.05 X 10*3/uL (0.04-0.35); Eosinophils % (A) 1.3 %; HCT 42.7 % (37.2-46.3); HGB 13.4 g/dL (12.0-15.0); Immature Grans, Automated 0.3 %; Lymphocytes # (A) 1.57 X 10*3/uL (0.90-5.00); Lymphocytes % (A) 39.6 %; MCH 28.7 pg (27.0-32.0); MCHC 31.4 g/dL (32.0-37.0); MCV 91.4 fL (80.0-97.0); Mean Platelet Volume 11.6 fL (9.5-12.2); Monocytes % (A) 7.6 %; NRBC Per 100 WBC 0 /100 WBCS (0.0-0.0); Neutrophils # (A) 2.01 X 10*3/uL (1.80-7.70); Neutrophils % (A) 50.7 %; Platelet Count 198 X 10*3/uL (140-440); RBC 4.67 X 10*6/uL (4.10-5.20); RDW 15.4 % (11.5-14.5); WBC 3.96 X 10*3/uL (4.50-10.00)
[2021-09-03 18:29] LABS: Creatine Kinase 59 U/L (26-186); Magnesium 1.9 mg/dL (1.5-2.4); Phosphorus 3.5 mg/dL (2.4-5.1)
[2021-09-03 18:43] LABS: ALT 12 U/L (8-44); AST 10 U/L (13-35); African American GFR (CKD) 104.3 (60.0-200.0); Albumin 4.1 g/dL (3.8-4.9); Albumin/Globulin Ratio 1.45 (1.60-3.17); Alkaline Phosphatase 61 U/L (41-126); BUN/Creat Ratio 10.49 Ratio (12.00-20.00); Blood Urea Nitrogen 8.1 mg/dL (9.0-27.0); Calcium 9.4 mg/dL (8.7-10.3); Carbon Dioxide 26.3 mmol/L (20.0-27.5); Chloride 101 mmol/L (96-109); Globulin 2.9 g/dL (1.6-3.3); Glucose 128 mg/dL (70-110); Potassium 4.1 mmol/L (3.5-5.5); Sodium 138 mmol/L (135-145)
[2021-09-03 19:19] LABS: Erythrocyte Sedimentation Rate 26 mm/Hr (0-20)
[2021-09-03 20:39] LABS: Chol/HDL Ratio 4.94 Ratio; LDL Cholesterol,Calculated 182.2 mg/dL (0.0-131.0); VLDL Calculation 18.78 mg/dL (5.00-40.00)
== END | disposition home or self-care (01) ==
LOC: LABWHC1 11:46
PROVIDERS: ATTEND Internal Medicine
DX: Z00.00 Encounter for general adult medical examination without abnormal findings (principal); E78.5 Hyperlipidemia, unspecified; E55.9 Vitamin D deficiency, unspecified; E11.65 Type 2 diabetes mellitus with hyperglycemia; E03.9 Hypothyroidism, unspecified; E66.9 Obesity, unspecified; J45.909 Unspecified asthma, uncomplicated
CPT/HCPCS: 36415; 80053; 80061; 82306; 82550; 83036; 83735; 84100; 84443; 85025; 85652; 86140

== ENCOUNTER → 2021-09-15 | Outpatient (CLI) | payer OTHER ==
--- NOTE | 2021-09-16 11:32 | MM ---
Reason for Exam: Screening (asymptomatic). Last mammogram was performed 2 year(s) and 11 month(s) ago. Patient History: Menarche at age 14. First Full-Term at age 20. Progesterone for 2 years from age 41 until age 43. 12/16/2017, Benign Core Biopsy on the left side. 12/16/2017, Benign Core Biopsy on the right side. Risk Values: Patricia 5 year model risk: 1.0%. NCI Lifetime model risk: 9.6%. Prior Study Comparison: 01/05/2017 Bilateral Diagnostic Mammogram, [facility]. 11/16/2017 Bilateral Diagnostic Mammogram, [facility]. 10/26/2018 Bilateral Diagnostic Mammogram, [facility]. Tissue Density: The breast tissue is heterogeneously dense. This may lower the sensitivity of mammography. Findings: Analyzed By CAD. There is no suspicious group of microcalcifications or new suspicious mass in either breast. Benign-appearing calcifications throughout both breasts. Decreased size of left breast mass. Overall Assessment: Benign, BI-RAD 2 Management: Screening Mammogram of both breasts in 1 year. A clinical breast exam by your physician is recommended on an annual basis and results should be correlated with mammographic findings. Electronically signed and approved by: Lauro Min D.O.
== END | disposition home or self-care (01) ==
LOC: RADMAMWWP 16:02
PROVIDERS: ATTEND Internal Medicine
DX: Z12.31 Encounter for screening mammogram for malignant neoplasm of breast (principal)
CPT/HCPCS: 77063; 77067

== ENCOUNTER → 2021-09-15 | Outpatient (CLI) | payer OTHER ==
--- NOTE | 2021-09-15 12:49 | MR ---
EXAMINATION TYPE: MR brain/cspine wo DATE OF EXAM: 09/15/2021 12:21 PM COMPARISON: NONE HISTORY: M54.81 Occipital Neuralgia of left side FINDINGS: The ventricles, basal cisterns and sulci overlying the cerebral convexities are minimally enlarged. There is evidence of minimal periventricular white matter ischemic demyelination. Remote deep white matter insults are also noted. No acute edema is seen on diffusion weighted imaging. There is no evidence for midline shift or mass effect. Acute intracranial hemorrhage or extra-axial collection is not evident. The paranasal sinuses and mastoid air cells are well-aerated. IMPRESSION: Age-related atrophic and chronic small vessel ischemic change. No acute intracranial process at this time. EXAMINATION TYPE: MR brain/cspine wo DATE OF EXAM: 09/15/2021 12:21 PM COMPARISON: NONE HISTORY: M54.81 Occipital Neuralgia of left side Multiplanar MultiSpin echo imaging of the cervical spine was performed. Comparison: none C2-C3: No evidence for degenerative disc disease. No disc bulge/herniation or protrusion. No Canal stenosis. Foramina are patent bilaterally. C3-C4: No evidence for degenerative disc disease. No disc bulge/herniation or protrusion. No Canal stenosis. Foramina are patent bilaterally. C4-C5: No evidence for degenerative disc disease. Minimal posterior disc bulge. No herniation protrus ion or central stenosis. No Canal stenosis. Foramina are patent bilaterally. C5-C6: No evidence for degenerative disc disease. Minimal posterior disc bulge. No herniation protrus ion or central stenosis. No Canal stenosis. Foramina are patent bilaterally. C6-C7: No evidence for degenerative disc disease. No disc bulge/herniation or protrusion. No Canal stenosis. Foramina are patent bilaterally. C7-T1: No evidence for degenerative disc disease. No disc bulge/herniation or protrusion. No Canal stenosis. Foramina are patent bilaterally. Cervical segments are intact. There is normal alignment. Cervical spinal cord is of normal signal. Craniovertebral junction relationships are within normal limits. IMPRESSION: 1. Minimal posterior disc bulge as noted. Otherwise unremarkable.
== END | disposition home or self-care (01) ==
LOC: RADMRIMAIN 11:28
PROVIDERS: ATTEND Psychiatry & Neurology Neurology
DX: G31.9 Degenerative disease of nervous system, unspecified (principal); I67.82 Cerebral ischemia; M50.323 Other cervical disc degeneration at C6-C7 level
CPT/HCPCS: 70551; 72141

== ENCOUNTER → 2022-05-27 | Outpatient (CLI) | payer OTHER ==
--- NOTE | 2022-05-27 15:14 | XR ---
EXAMINATION TYPE: XR chest 2V DATE OF EXAM: 05/27/2022 COMPARISON: 11/13/2020 INDICATION: Short of breath TECHNIQUE: Frontal and lateral views of the chest are obtained. FINDINGS: The heart size is normal. The pulmonary vasculature is normal. The lungs are clear. IMPRESSION: 1. No acute pulmonary process.
[2022-05-27 18:55] LABS: Thyroid Peroxidase Antibodies 10.4 U/mL (0.0-33.0)
[2022-05-27 23:36] LABS: T4, Free (Free Thyroxine) 1.11 ng/dL (0.800-1.800)
[2022-05-27 23:37] LABS: African American GFR (CKD) 96.7 (60.0-200.0); Anion Gap 9.7 mmol/L (10.00-18.00); BUN/Creat Ratio 11.63 Ratio (12.00-20.00); Blood Urea Nitrogen 9.5 mg/dL (9.0-27.0); Calcium 9.9 mg/dL (8.7-10.3); Carbon Dioxide 28.6 mmol/L (20.0-27.5); Non-African American GFR(CKD) 83.5 (60.0-200.0); Potassium 4.5 mmol/L (3.5-5.5)
== END | disposition home or self-care (01) ==
LOC: LABWHC1 12:41
PROVIDERS: ATTEND Internal Medicine
DX: R06.02 Shortness of breath (principal)
CPT/HCPCS: 36415; 71046; 80048; 83036; 84439; 84443; 86376; 86800

== ENCOUNTER 2023-05-26 08:12 | Day surgery (SDC) | payer OTHER ==
--- NOTE | 2023-05-26 07:35 | P.GSHP ---
History of Present Illness H&P Date: 05/26/23 CHIEF COMPLAINT: GERD and colon screen HISTORY OF PRESENT ILLNESS: The patient is a 53-year-old female who presents with gastroesophageal reflux disease and need for colon screen. Upper and lower endoscopy were offered for further evaluation and management. PAST MEDICAL HISTORY: Please see list. PAST SURGICAL HISTORY: Please see list. MEDICATIONS: Please see list. ALLERGIES: Please see list. SOCIAL HISTORY: No illicit drug use FAMILY HISTORY: No reports of Crohn disease or ulcerative colitis. REVIEW OF ORGAN SYSTEMS: CONSTITUTIONAL: No reports of fevers or chills. GI: Denies any blood in stools or constipation. PHYSICAL EXAM: VITAL SIGNS: Stable GENERAL: Well-developed pleasant in no acute distress. HEENT: No scleral icterus. Extraocular movements grossly intact. Moist buccal mucosa. NECK: Supple without lymphadenopathy. CHEST: Unlabored respirations. Equal bilateral excursions. CARDIOVASCULAR: Regular rate and rhythm. Distal 2+ pulses. ABDOMEN: Soft, nondistended. MUSCULOSKELETAL: No clubbing, cyanosis, or edema. ASSESSMENT: 1. Gastroesophageal reflux disease 2. Colon screen. PLAN: 1. Recommend proceeding with an upper and lower endoscopy Past Medical History Past Medical History: Diabetes Mellitus, Deep Vein Thrombosis (DVT), Hyperlipidemia, Hypertension, Syncope Additional Past Medical History / Comment(s): kidney stones, low iron, being scheduled for neighborhood planner for chest pain sob syncopal episodes History of Any Multi-Drug Resistant Organisms: None Reported Past Surgical History: Breast Surgery, Hysterectomy, Uterine Ablation Additional Past Surgical History / Comment(s): lithotripsy, D&C breast bx Past Anesthesia/Blood Transfusion Reactions: No Reported Reaction Smoking Status: Former smoker - Past Family History Mother Family Medical History: Diabetes Mellitus Medications and Allergies Home Medications Medication Instructions Recorded Confirmed Type metFORMIN HCL [Glucophage] 500 mg PO BID 06/30/19 05/24/23 History Latanoprost [Xalatan 0.005%] 1 drop BOTH EYES HS 02/01/20 05/24/23 History Ondansetron Odt [Zofran Odt] 4 mg PO Q8HR PRN #20 tab 02/01/20 05/24/23 Rx Atorvastatin [Lipitor] 10 mg PO HS 05/24/23 05/24/23 History Liraglutide [Victoza 2-Billy] 1 dose INHALATION WE 05/24/23 05/24/23 History lisinopriL [Zestril] 5 mg PO HS 05/24/23 05/24/23 History Allergies Allergy/AdvReac Type Severity Reaction Status Date / Time latex Allergy Rash/Hives Verified 05/24/23 11:54 ARELY Araya Swelling Uncoded 05/24/23 11:54
[2023-05-26] MEDS: LACTATED RINGERS 1,000 ML IV SCH (08:37)
[2023-05-26 08:53] LABS: Glucose,Whole Blood 142 mg/dL (70-110)
[2023-05-26 09:05] VITALS: RESP 18; TEMP 97.3
[2023-05-26] MEDS ORDERED: LIDOCAINE 1% INJ 10MG/ML (20 ML MDV) ONE (09:10)
[2023-05-26] MEDS ORDERED: PROPOFOL 10 MG/ML 20 ML VIAL IV ONE (09:10)
--- NOTE | 2023-05-26 10:13 | P.PCN ---
Date of Procedure: 05/26/23 Description of Procedure: PREOPERATIVE DIAGNOSIS: Gastroesophageal reflux disease. Morbid obesity. POSTOPERATIVE DIAGNOSIS: Gastroesophageal reflux disease. Morbid obesity. Gastritis. Diaphragmatic hiatal hernia OPERATION: Esophagogastroduodenoscopy with biopsies along antrum and duodenum, esophagus SURGEON: Corina Donahue MD ANESTHESIA: MAC. INDICATIONS: The patient is a 53-year-old female who presents with reflux disease. Benefits and risks of the procedure were described. Informed consent was obtained. DESCRIPTION: The patient was brought into the endoscopy suite and laid in the left lateral decubitus position. An Olympus gastroscope was passed along the posterior oropharynx down to the distal esophagus where the squamocolumnar junction was encountered at 39 cm from the incisors. The stomach was entered and no bile reflux was found. Additional findings are listed below. Biopsies with cold forceps were obtained of the antrum. The first through third portion of the duodenum was examined. Retroflexion of the scope confirmed Hill grade 4 lower esophageal valve. The squamocolumnar junction demonstrated LA grade B erosive esophagitis. The stomach was desufflated. The patient tolerated the procedure well. FINDINGS: Squamocolumnar junction 39 cm from the incisors. Diaphragmatic hiatus at 40 cm. Hiatal hernia, 1 cm Hill grade 4 lower esophageal valve. LA grade B erosive esophagitis. Biopsies obtained of the duodenum. Chronic gastritis with biopsies obtained. RECOMMENDATIONS: Upper endoscopy as needed. Plan - Discharge Summary Discharge Rx Participant: No New Discharge Prescriptions: Continue metFORMIN HCL [Glucophage] 500 mg PO BID Latanoprost [Xalatan 0.005%] 1 drop BOTH EYES HS Ondansetron Odt [Zofran ODT] 4 mg PO Q8HR PRN #20 tab PRN Reason: Nausea Atorvastatin [Lipitor] 10 mg PO HS Liraglutide [Victoza 2-Billy] 1 dose INHALATION WE lisinopriL [Zestril] 5 mg PO HS Discharge Medication List metFORMIN HCL [Glucophage] 500 mg PO BID 06/30/19 [History] Latanoprost [Xalatan 0.005%] 1 drop BOTH EYES HS 02/01/20 [History] Ondansetron Odt [Zofran ODT] 4 mg PO Q8HR PRN #20 tab 02/01/20 [Rx] Atorvastatin [Lipitor] 10 mg PO HS 05/24/23 [History] Liraglutide [Victoza 2-Billy] 1 dose INHALATION WE 05/24/23 [History] lisinopriL [Zestril] 5 mg PO HS 05/24/23 [History] Patient Instructions/Handouts: *Surgery [facility] - (Anesthesia) Discharge Instructions Outpatient Surgery, Colorectal Polyps (GEN), Diverticulosis (DC), Diverticulitis Diet (GEN) Activity/Diet/Wound Care/Special Instructions: Repeat colonoscopy in 3 years2026 Discharge Disposition: HOME SELF-CARE
--- NOTE | 2023-05-26 10:17 | P.PCN ---
Date of Procedure: 05/26/23 Description of Procedure: PREOPERATIVE DIAGNOSIS: Colonoscopy screening POSTOPERATIVE DIAGNOSIS: Tubular adenoma transverse colon Lipoma ascending colon Large lipoma hepatic flexure Sigmoid diverticulosis Internal hemorrhoids, grade 3 OPERATION: Colonoscopy to the ileocecal valve and appendiceal orifice, cecum Colonoscopy with hot snare polypectomy SURGEON: Corina Donahue MD. ANESTHESIA: MAC. INDICATIONS: The patient is an 53-year-old female who presents for colon screening. Benefits and risks were described and informed consent was obtained. DESCRIPTION OF PROCEDURE: The patient had undergone GoLytely prep. The patient had been brought into the operating room and laid in the left lateral decubitus position. After adequate intravenous sedation, the rectum was examined with 2% lidocaine jelly. External hemorrhoids were encountered. The rectal tone was within normal limits. No les ions were palpated in the rectal vault. An Olympus colonoscope was advanced until the cecum, ileocecal valve and appendiceal orifice were clearly viewed. The prep was good. Sigmoid diverticulosis was encountered. Colonic polyps were found and removed. No evidence of focal colitis was found. Retroflexion of the scope demonstrated grade 3 internal hemorrhoids without active bleeding or inflammation. The colon was desufflated. The patient had tolerated the procedure well. Withdrawal time was over 6 minutes. FINDINGS: Aronchick preparation quality scale 2 (1-5) Internal hemorrhoids, grade 4 External hemorrhoids, grade 4. No arteriovenous malformations. Large lipoma over 4 cm, hepatic flexure, partially obstructing Lipoma ascending colon, 8 mm Sigmoid diverticulosis, mild Removal of 1 polyps: - Snare polypectomy proximal transverse colon, 6 mm tubulovillous adenoma No focal colitis. RECOMMENDATIONS: Repeat colonoscopy 3 years, 2026
[2023-05-26 10:19] VITALS: BP 147/99; PULSE 67
== END 2023-05-26 11:00 | disposition home or self-care (01) ==
LOC: ORWHC2ENDO 08:12
PROVIDERS: ATTEND Surgery Plastic and Reconstructive Surgery
DX: Z12.11 Encounter for screening for malignant neoplasm of colon (principal); K29.50 Unspecified chronic gastritis without bleeding; B96.81 Helicobacter pylori [H. pylori] as the cause of diseases classified elsewhere; D12.3 Benign neoplasm of transverse colon; D17.79 Benign lipomatous neoplasm of other sites; K57.30 Diverticulosis of large intestine without perforation or abscess without bleeding; K64.3 Fourth degree hemorrhoids; K44.9 Diaphragmatic hernia without obstruction or gangrene; E66.01 Morbid (severe) obesity due to excess calories; E11.9 Type 2 diabetes mellitus without complications; E78.5 Hyperlipidemia, unspecified; I10 Essential (primary) hypertension; K21.9 Gastro-esophageal reflux disease without esophagitis; Z79.84 Long term (current) use of oral hypoglycemic drugs; Z86.718 Personal history of other venous thrombosis and embolism; Z87.891 Personal history of nicotine dependence; Z91.040 Latex allergy status; Z90.710 Acquired absence of both cervix and uterus; Z68.39 Body mass index [BMI] 39.0-39.9, adult; Z79.899 Other long term (current) drug therapy
CPT/HCPCS: 88305; 88342; 45385; 43239; J2001; J2704

== ENCOUNTER → 2023-07-07 | Outpatient (CLI) | payer OTHER ==
[2023-07-07 12:59] LABS: African American GFR (CKD) >90 (>60 ml/min/1.73 sqM); Blood Urea Nitrogen 11 mg/dL (7-17); Non-African American GFR(CKD) >90 (>60 ml/min/1.73 sqM)
--- NOTE | 2023-07-07 14:40 | CT ---
EXAMINATION TYPE: CT abdomen pelvis w con CT DLP: 1748 mGycm, Automated exposure control for dose reduction was used. 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 Contrast used:100 mL of Isovue 300 with IV Contrast, (none if empty) Oral contrast used: with Oral Contrast (none if empty) FINDINGS: LOWER CHEST: Unremarkable ABDOMEN LIVER: Unremarkable GALLBLADDER AND BILE DUCTS: Unremarkable. PANCREAS: Unremarkable. SPLEEN: Unremarkable. ADRENAL GLANDS: Unremarkable. KIDNEYS AND URETERS: No evidence of hydronephrosis or renal calculus. The ureters are unremarkable. PELVIS BLADDER: Unremarkable REPRODUCTIVE: Right ovarian 4.5 cm cyst. There is fluid within the vagina around the cervical cough. Mild Fat stranding changes are seen around the vagina. ABDOMEN & PELVIS STOMACH AND BOWEL: No evidence of bowel obstruction. Third portion duodenal diverticulum. Gastrointes tinal lipoma in the transverse colon measuring up to 36 cm. Appendix is normal. PERITONEUM/RETROPERITONEUM: No evidence of pneumoperitoneum or free fluid. VASCULATURE: No evidence of aortic aneurysm. MUSCULOSKELETAL: No acute osseous abnormalities LYMPH NODES: No gross evidence for lymphadenopathy. SOFT TISSUE/ABDOMINAL WALL: Unremarkable IMPRESSION: 1. There is fluid within the vagina around the cervix. Further evaluation of the vagina with direct visualization recommended. There is some inflammation changes around the vagina which could represent vaginitis. No other acute process to explain the patient's pain no evidence for diverticulitis. 2. Right ovarian 4.5 cm cyst complete evaluation nonemergent pelvic ultrasound is recommended for walsh rveillance. 3. Gastrointestinal lipoma in the transverse colon measuring up to 36 cm. New from 04/17/2018
== END | disposition home or self-care (01) ==
LOC: RADCTMAIN 12:14
PROVIDERS: ATTEND Surgery Plastic and Reconstructive Surgery
DX: K57.32 Diverticulitis of large intestine without perforation or abscess without bleeding (principal); N83.201 Unspecified ovarian cyst, right side; D17.5 Benign lipomatous neoplasm of intra-abdominal organs
CPT/HCPCS: 82565; 84520; 74177; Q9967

== ENCOUNTER → 2023-08-24 | Outpatient (CLI) | payer OTHER | END | disposition home or self-care (01) | LOC: LABWHC1 11:34 | PROVIDERS: ATTEND Internal Medicine | DX: E11.65 Type 2 diabetes mellitus with hyperglycemia (principal) | CPT/HCPCS: 36415; 82947; 83036 ==

== ENCOUNTER → 2024-03-31 | Outpatient (CLI) | payer OTHER ==
[2024-03-31 18:42] LABS: HCT 41.4 % (37.2-46.3); HGB 13.3 g/dL (12.0-15.0); MCH 29.2 pg (27.0-32.0); MCHC 32.1 g/dL (32.0-37.0); Mean Platelet Volume 11.7 FL (9.5-12.2); NRBC Per 100 WBC 0 X 10*3/uL (0.00-0.01); Platelet Count 215 X 10*3/uL (140-440); RBC 4.55 X 10*6/uL (4.10-5.20); RDW 14.6 % (11.5-14.5); WBC 4.45 X 10*3/uL (4.50-10.00)
[2024-03-31 19:39] LABS: BUN/Creat Ratio 22.12 Ratio (12.00-20.00); Blood Urea Nitrogen 17.7 mg/dL (9.0-27.0); Chol/HDL Ratio 5.05 Ratio; Glucose 100 mg/dL (70-110); LDL Cholesterol,Calculated 197.2 mg/dL (0.0-131.0); Sodium 143 mmol/L (135-145); VLDL Calculation 16.86 mg/dL (5.00-40.00)
[2024-03-31 19:40] LABS: ALT 13 U/L (8-44); AST 13 U/L (13-35); Albumin 4.2 g/dL (3.8-4.9); Albumin/Globulin Ratio 1.45 Ratio (1.60-3.17); Alkaline Phosphatase 69 U/L (41-126); Calcium 9.9 mg/dL (8.7-10.3); Carbon Dioxide 26.4 mmol/L (21.6-31.8); Chloride 105 mmol/L (96-109); Globulin 2.9 g/dL (1.6-3.3); Total Bilirubin 0.2 mg/dL (0.3-1.2); Total Protein 7.1 g/dL (6.2-8.2)
== END | disposition home or self-care (01) ==
LOC: LABWHC1 13:25
PROVIDERS: ATTEND Family Medicine
DX: I10 Essential (primary) hypertension (principal); E11.9 Type 2 diabetes mellitus without complications; E55.9 Vitamin D deficiency, unspecified
CPT/HCPCS: 36415; 80053; 80061; 82306; 83036; 85027

== ENCOUNTER → 2024-06-15 | Outpatient (CLI) | payer OTHER ==
--- NOTE | 2024-06-15 09:18 | CT ---
EXAMINATION TYPE: CT abdomen pelvis wo con DATE OF EXAM: 06/15/2024 8:55 AM COMPARISON: 07/07/2023 CLINICAL INDICATION: Female, 54 years old with history of R31.9 HEMATURIA R10.9 R FLANK PAIN; Right f lank pain and gross hematuria. TECHNIQUE: CT of the abdomen and pelvis without contrast. Coronal and sagittal reconstructions perfor med. CT DLP: 862 mGycm, Automated exposure control for dose reduction was used. FINDINGS: LOWER CHEST: Unremarkable ABDOMEN LIVER: Unremarkable GALLBLADDER AND BILE DUCTS: Unremarkable. PANCREAS: Unremarkable. SPLEEN: Unremarkable. ADRENAL GLANDS: Unremarkable. KIDNEYS AND URETERS: Tiny 7 mm renal cortical cyst on the left redemonstrated. No nephrolithiasis or hydronephrosis. No suspicious calcification seen along the course of either ureter. PELVIS BLADDER: No evidence for wall thickening or mass given limitations of exam. REPRODUCTIVE: Uterus is anteverted. Both ovaries are visualized. Bilateral pelvic phleboliths noted. No abnormal fluid collection in the pelvis. ABDOMEN & PELVIS STOMACH AND BOWEL: Small hiatal hernia. Moderate stool burden. Normal appendix. No pericolonic inflam matory change. No evidence of bowel obstruction. PERITONEUM/RETROPERITONEUM: No evidence of pneumoperitoneum or free fluid. VASCULATURE: No evidence of aortic aneurysm. MUSCULOSKELETAL: No acute osseous abnormalities LYMPH NODES: No gross evidence for lymphadenopathy. SOFT TISSUE/ABDOMINAL WALL: Old incisional scar along the anterior infraumbilical midline. IMPRESSION: 1. Normal appendix. No nephrolithiasis or hydronephrosis seen. Moderate stool burden. 2. Small hiatal hernia. [facility], , 06/15/2024 9:15 AM
== END | disposition home or self-care (01) ==
LOC: RADCTMAIN 08:40
PROVIDERS: ATTEND Family Medicine
DX: K44.9 Diaphragmatic hernia without obstruction or gangrene (principal); R31.9 Hematuria, unspecified
CPT/HCPCS: 74176